=== PATIENT | female | born 1955 | race Caucasian/White ===

== ENCOUNTER 2018-06-03 08:26 | Inpatient (IN) | payer OTHER ==
[2018-06-03 09:40] LABS: Urine Blood 2+ (NEG); Urine Glucose NEGATIVE (NEG); Urine Protein 1+ (NEG); Urine Specific Gravity 1.015 (1.005-1.030); Urine pH 5.5 (5.0-7.0)
[2018-06-03 09:42] LABS: Absolute Lymphocytes (CBC) 0.4 K/uL (0.7-4.9); Absolute Monocytes 1.2 K/uL (0.1-1.3); Absolute Neutrophil 30.3 K/uL (1.8-8.0); Basophils % 0.1 % (0-1.3); Hematocrit 31.1 % (36.0-45.0); Lymphocytes % 1.4 % (15.3-44.8); MCH 33.5 pg (27.0-35.0); MCV 101.3 fL (80-100); MPV 8.4 fL (7.6-11.3); Monocytes % 3.7 % (3.3-12.3); RBC Red Blood Cell Count 3.07 M/uL (3.86-4.86)
[2018-06-03 09:43] LABS: Urine Bacteria <20 /HPF (<20); Urine Culture Reflex Order REFLEXED; Urine RBC <5 /HPF (NONE SEEN); Urine Yeast MANY (NONE SEEN); Urine Yeast with Hyphae PRESENT
[2018-06-03 09:47] LABS: Potassium 4.6 mmol/L (3.5-5.1)
[2018-06-03] MEDS ORDERED: NA CHLORIDE 0.9% 1,000 ML ONE ×2 (10:11→12:08)
[2018-06-03] MEDS ORDERED: FLUCONAZOLE 100 MG TAB ONE (10:11)
[2018-06-03 10:21] LABS: Blood Morphology Comment NOT SEEN (NOT SEEN); Platelet Estimate ADEQ
[2018-06-03 10:22] LABS: Toxic Granulation 1+
--- NOTE | 2018-06-03 10:28 | EKG ---
Test Date: 2018-06-03 Test Time: 09:15:21 Shop Manager: SHANTA MEASUREMENT RESULTS: Intervals: Rate: 96 TX: 148 QRSD: 94 QT: 350 QTc: 442 [place]: P: 45 TX: 148 QRS: 49 T: 50 INTERPRETIVE STATEMENTS: Normal sinus rhythm with sinus arrhythmia Normal ECG Compared to ECG 12/02/2016 20:20:02 Atrial premature complex(es) no longer present Electronically Signed On 06-03-18 10:27:44 CDT by Edwar Fulton
[2018-06-03] MEDS ORDERED: VANCOMYCIN 1 GM/250 ML BAG ONE (11:36)
[2018-06-03] MEDS ORDERED: CEFEPIME 1 GM/100 ML BAG IV ONE ×2 (11:36→20:31)
--- NOTE | 2018-06-03 11:48 | RAD REPORT ---
EXAM DESCRIPTION: RAD - Chest Single View - 06/03/2018 10:23 am CLINICAL HISTORY: Fall, chest pain, smoking history COMPARISON: November 2016 TECHNIQUE: AP portable chest image was obtained 1004 hours . FINDINGS: Lungs are clear. Heart and vasculature are normal. No measurable pleural effusion and no p neumothorax. No gross bony abnormality seen. No acute aortic findings suspected. IMPRESSION: No acute cardiopulmonary process. No significant interval change.
[2018-06-03] MEDS ORDERED: FENTANYL CITR 100 MCG/2 ML ONE (12:07)
--- NOTE | 2018-06-03 12:14 | RAD REPORT ---
EXAM DESCRIPTION: CT - Abdomen Pelvis Wo Contrast - 06/03/2018 11:54 am CLINICAL HISTORY: Abdominal pain. TRAUMA COMPARISON: No comparisons TECHNIQUE: CT imaging of the abdomen and pelvis was performed without contrast. Solid organ, bowel a nd vascular assessment is limited due to lack of IV and oral contrast. All CT scans are performed using dose optimization technique as appropriate and may include automated exposure control or mA/KV adjustment according to patient size. FINDINGS: The lower lung roper are clear. The liver, spleen, pancreas, right adrenal gland and kidneys are within normal limits for a limited n on-contrast examination.19 mm left adrenal mass is present, probably an adenoma. Several gallstones a re seen within the gallbladder. No bowel obstruction, free air, free fluid or abscess. The appendix is normal. Mildly prominent lymp h nodes are seen in both inguinal regions, nonspecific. Lumbar degenerative changes.Advanced degenerative changes in both hips are also present. IMPRESSION: No acute intra-abdominal or pelvic findings. Gallstones. A limited non-contrast examination was performed as detailed.
--- NOTE | 2018-06-03 12:30 | EDPHYS ---
Physician Documentation [facility] Name: Carrie Webb Age: 62 yrs Sex: Female : 1955 Arrival Date: 06/03/2018 Time: 08:29 Bed 5 Private MD: ED Physician Berto Spencer HPI: 06/03 10:40 This 62 yrs old Female presents to ER via EMS with complaints of Fall Injury. jr8 10:40 Onset: The symptoms/episode began/occurred acutely, today. Severity of symptoms: At jr8 their worst the symptoms were mild, in the emergency department the symptoms are unchanged. The patient has not experienced similar symptoms in the past. The patient has not recently seen a physician. Patient stated that she was trying to get up from her chair and slid down landing on lower legs. Came to ED for evaluation from fall. Currently denies pain. Stated that she has felt weak over the past week or so. Historical: - Allergies: 08:30 PENICILLINS; sg - PMHx: 08:30 Cellulitis; Diabetes - NIDDM; Hypertension; sg - PSHx: 08:30 Joint replacement; Knee surgery; Hysterectomy; cervical fusion; ; sg - Immunization history:: Adult Immunizations unknown. - Social history:: Smoking status: Patient uses tobacco products, smokes one-half pack cigarettes per day. - Ebola Screening: : Patient negative for fever greater than or equal to 101.5 degrees Fahrenheit, and additional compatible Ebola Virus Disease symptoms Patient denies exposure to infectious person Patient denies travel to an Ebola-affected area in the 21 days before illness onset No symptoms or risks identified at this time. ROS: 11:18 Eyes: Negative for injury, pain, redness, and discharge, ENT: Negative for injury, jr8 pain, and discharge, Neck: Negative for injury, pain, and swelling, Respiratory: Negative for shortness of breath, cough, wheezing, and pleuritic chest pain, Abdomen/GI: Negative for abdominal pain, nausea, vomiting, diarrhea, and constipation, Back: Negative for injury and pain, Skin: Negative for injury, rash, and discoloration, Neuro: Negative for headache, weakness, numbness, tingling, and seizure. 11:18 Constitutional: Positive for fever. 11:18 Cardiovascular: Positive for edema, Negative for chest pain, orthopnea, palpitations, paroxysmal nocturnal dyspnea. Exam: 11:18 Eyes: Pupils equal round and reactive to light, extra-ocular motions intact. Lids and jr8 lashes normal. Conjunctiva and sclera are non-icteric and not injected. Cornea within normal limits. Periorbital areas with no swelling, redness, or edema. ENT: Nares patent. No nasal discharge, no septal abnormalities noted. Tympanic membranes are normal and external auditory canals are clear. Oropharynx with no redness, swelling, or masses, exudates, or evidence of obstruction, uvula midline. Mucous membranes moist. Neck: Trachea midline, no thyromegaly or masses palpated, and no cervical lymphadenopathy. Supple, full range of motion without nuchal rigidity, or vertebral point tenderness. No Meningismus. Cardiovascular: Regular rate and rhythm with a normal S1 and S2. No gallops, murmurs, or rubs. Normal PMI, no JVD. No pulse deficits. 2+ edema bilateral lower extremities present Respiratory: Lungs have equal breath sounds bilaterally, clear to auscultation and percussion. No rales, rhonchi or wheezes noted. No increased work of breathing, no retractions or nasal flaring. Abdomen/GI: Soft, non-tender, with normal bowel sounds. No distension or tympany. No guarding or rebound. No evidence of tenderness throughout. Back: No spinal tenderness. No costovertebral tenderness. Full range of motion. MS/ Extremity: Pulses equal, no cyanosis. Neurovascular intact. Full, normal range of motion. Neuro: Awake and alert, GCS 15, oriented to person, place, time, and situation. Cranial nerves II-XII grossly intact. Motor strength 5/5 in all extremities. Sensory grossly intact. Cerebellar exam normal. Normal gait. 11:18 Skin: pressure wounds noted to buttocks. Significant bruising noted to buttocks as well . Vital Signs: 08:36 BP 129 / 109; Pulse 102; Resp 20; Temp 98.; Pulse Ox 100% on R/A; Weight 136.08 kg (R); ae1 09:56 Pulse 99; Resp 19; Pulse Ox 98% on R/A; ae1 10:17 BP 120 / 60; Pulse 98; Resp 20; Pulse Ox 98% on R/A; ae1 11:47 BP 126 / 72; Pulse 101; Resp 21; Pulse Ox 99% on R/A; ae1 13:28 BP 108 / 52; Pulse 120; Resp 19; Pulse Ox 98% on R/A; ae1 MDM: 08:34 Patient medically screened. [facility] 12:28 Data reviewed: vital signs, nurses notes, lab test result(s), EKG, radiologic studies, [facility] CT scan, plain films, and as a result, I will admit patient. Data interpreted: Pulse oximetry: on room air is 99 %. Interpretation: normal. Counseling: I had a detailed discussion with the patient and/or guardian regarding: the historical points, exam findings, and any diagnostic results supporting the discharge/admit diagnosis, lab results, radiology results, the need for further work-up and treatment in the hospital. 06/03 08:38 Order name: CBC with Diff [facility] 06/03 08:38 Order name: Basic Metabolic Panel [facility] 06/03 08:38 Order name: Urine Microscopic Only [facility] 06/03 08:38 Order name: CBC with Automated Diff; Complete Time: 10:30 [facility] 06/03 08:38 Order name: Basic Metabolic Panel; Complete Time: 09:54 [facility] 06/03 08:38 Order name: Urine Microscopic Only; Complete Time: 09:46 [facility] 06/03 09:19 Order name: Urine Dipstick--Ancillary (enter results); Complete Time: 09:46 bd 06/03 09:44 Order name: Urine Culture [facility] 06/03 09:51 Order name: Manual Differential; Complete Time: 10:30 [facility] 06/03 09:55 Order name: Blood Culture Adult (2) [facility] 06/03 09:55 Order name: Procalcitonin; Complete Time: 11:59 [facility] 06/03 09:56 Order name: Lactate [facility] 06/03 09:57 Order name: Lactate; Complete Time: 11:34 [facility] 06/03 09:57 Order name: BNP [facility] 06/03 08:38 Order name: IV; Complete Time: 09:29 [facility] 06/03 08:38 Order name: Urine Dipstick-Ancillary (obtain specimen); Complete Time: 09:24 [facility] 06/03 08:38 Order name: Straight Cath; Complete Time: 09:24 [facility] 06/03 08:38 Order name: EKG - Nurse/Tech; Complete Time: 09:24 06/03 08:38 Order name: EKG; Complete Time: 08:39 06/03 09:55 Order name: XRAY Chest (1 view); Complete Time: 11:59 06/03 11:35 Order name: CT Abd/Pelvis - Without Cont; Complete Time: 12:26 06/03 13:55 Order name: Sifuentes; Complete Time: 14:10 ae1 Administered Medications: 09:56 CANCELLED (Physician Discretion): NS 0.9% 1000 ml IV at 1000 ml once jr 10:17 Drug: DiFLUcan 150 mg Route: PO; ae1 15:22 Follow up: Response: No adverse reaction ae1 10:17 Drug: NS 0.9% 1000 ml Route: IV; Rate: 1000 ml; Site: left antecubital; ae1 13:13 Follow up: IV Status: Completed infusion ae1 11:30 Drug: Cefepime 1 grams Route: IVPB; Rate: 200 ml/hr; Infused Over: 30 mins; Site: left ae1 jugular; 13:13 Follow up: IV Status: Completed infusion ae1 12:10 Drug: fentaNYL (PF) 50 mcg Route: IVP; Site: left jugular; ae1 13:55 Follow up: Response: Pain is unchanged, physician notified ae1 12:15 Drug: vancoMYCIN 1 grams Route: IVPB; Infused Over: 2 hrs; Site: left jugular; ae1 15:21 Follow up: IV Status: Infusion continued upon admission ae1 12:15 Drug: NS 0.9% 1000 ml Route: IV; Rate: 1000 ml; Site: left jugular; ae1 15:21 Follow up: IV Status: Infusion continued upon admission ae1 Disposition: 16:49 Co-signature as Attending Physician, Berto Spencer MD. rn Disposition: 06/03/18 12:29 Hospitalization ordered by Lester Frost for Inpatient Admission. Preliminary diagnosis are Bacteremia, Bacterial infection, unspecified, Sepsis. - Bed requested for Telemetry/MedSurg (Inpatient). - Status is Inpatient Admission. ae1 - Condition is Fair. - Problem is new. - Symptoms have improved. UTI on Admission? No Critical care time excluding procedures: 13:01 Critical care time: Bedside Care: 20 minutes, Consultation: 10 minutes, Family jr8 Intervention: 10 minutes. Total time: 40 minutes Signatures: Dispatcher [facility], Dulce Maria, RN RN dw Luis M Santos RN RN Berto Spencer MD MD rn Roszak, Josh, PA PA jr8 Jeferson Coleman, BERNADETTE RN ae1 Corrections: (The following items were deleted from the chart) 09:56 09:56 NS 0.9% 1000 ml IV at 1000 ml once ordered. jr8 jr8 11:36 11:18 Skin: pressure wounds noted to buttocks. jr8 jr8 12:49 12:29 Hospitalization Ordered by Yao Castellon DO for Inpatient Admission. Preliminary jr8 diagnosis is Bacteremia; Bacterial infection, unspecified; Sepsis. Bed requested for Telemetry/MedSurg (Inpatient). Status is Inpatient Admission. Condition is Fair. Problem is new. Symptoms have improved. UTI on Admission? No. jr8 13:20 12:49 06/03/2018 12:29 Hospitalization Ordered by Lester Frost MD for Inpatient dw Admission. Preliminary diagnosis is Bacteremia; Bacterial infection, unspecified; Sepsis. Bed requested for Telemetry/MedSurg (Inpatient). Status is Inpatient Admission. Condition is Fair. Problem is new. Symptoms have improved. UTI on Admission? No. jr8 14:56 13:20 06/03/2018 12:29 Hospitalization Ordered by Lester Frost MD for Inpatient ae1 Admission. Preliminary diagnosis is Bacteremia; Bacterial infection, unspecified; Sepsis. Bed requested for Telemetry/MedSurg (Inpatient). Status is Inpatient Admission. Condition is Fair. Problem is new. Symptoms have improved. UTI on Admission? No. dw
--- NOTE | 2018-06-03 12:30 | ER ---
Nurse's Notes [facility] Name: Carrie Webb Age: 62 yrs Sex: Female : 1955 Arrival Date: 06/03/2018 Time: 08:29 Bed 5 Private MD: Diagnosis: Bacteremia;Bacterial infection, unspecified;Sepsis Presentation: 06/03 08:37 Presenting complaint: EMS states: EMS states patient had a fall from her chair earlier ae1 this morning. 08:37 Acuity: YOSSI 3 ae1 09:31 Transition of care: patient was not received from another setting of care. Onset of ae1 symptoms was June 03, 2018 at 08:00. Risk Assessment: Do you want to hurt yourself or someone else? Patient reports no desire to harm self or others. Initial Sepsis Screen: Does the patient meet any 2 criteria? HR > 90 bpm. Does the patient have a suspected source of infection? No. Patient's initial sepsis screen is negative. Care prior to arrival: V/S "hypertensive.". 09:31 Method Of Arrival: EMS: [facility] ae1 Historical: - Allergies: 08:30 PENICILLINS; sg - PMHx: 08:30 Cellulitis; Diabetes - NIDDM; Hypertension; sg - PSHx: 08:30 Joint replacement; Knee surgery; Hysterectomy; cervical fusion; ; sg - Immunization history:: Adult Immunizations unknown. - Social history:: Smoking status: Patient uses tobacco products, smokes one-half pack cigarettes per day. - Ebola Screening: : Patient negative for fever greater than or equal to 101.5 degrees Fahrenheit, and additional compatible Ebola Virus Disease symptoms Patient denies exposure to infectious person Patient denies travel to an Ebola-affected area in the 21 days before illness onset No symptoms or risks identified at this time. Screenin:30 Abuse screen: Denies threats or abuse. Nutritional screening: No deficits noted. ae1 Tuberculosis screening: No symptoms or risk factors identified. Fall Risk Fall in past 12 months (25 points). Secondary diagnosis (15 points) impaired mobility, IV access (20 points). Ambulatory Aid- Crutches/Cane/Walker (15 pts). Gait- Impaired (20 pts.). Mental Status- Oriented to own ability (0 pts). Assessment: 09:37 General: Appears uncomfortable, obese, unkempt, Behavior is calm, cooperative. Pain: ae1 Complains of pain in right leg, lateral aspect of left calf, left lateral ankle, lateral aspect of left foot, left calf, left Achilles, left heel, medial aspect of left calf, left medial ankle, medial aspect of left foot, left gutiérrez, anterior aspect of left ankle and dorsum of left foot. Neuro: Level of Consciousness is awake, alert, obeys commands, Oriented to person, place, time, situation. Cardiovascular: Heart tones S1 S2 present ISABEL lower extremities are reddened, swollen and weeping clear yellowish fluid. ISABEL Feet are wrapped in bandages and ANA wrapp . Respiratory: Airway is patent Respiratory effort is even, unlabored, shallow, Respiratory pattern is regular, symmetrical. GI: Abdomen is round obese. : Urine is Lu urine. Lesions noted. EENT: No signs and/or symptoms were reported regarding the EENT system. Derm: Wound noted buttocks ISABEL lower extremities are significantly swollen, reddened and weeping clear yellow fluid. 10:00 Reassessment: No changes from previously documented assessment. Pain: Complains of pain ae1 in buttocks. Derm: Bruising that is dark purple, on buttocks. 13:27 Reassessment: Called 2nd floor to give report to receiving nurse, bakery helper states she ae1 will have Vira return call. 13:49 Reassessment:. ae1 Vital Signs: 08:36 BP 129 / 109; Pulse 102; Resp 20; Temp 98.; Pulse Ox 100% on R/A; Weight 136.08 kg (R); ae1 09:56 Pulse 99; Resp 19; Pulse Ox 98% on R/A; ae1 10:17 BP 120 / 60; Pulse 98; Resp 20; Pulse Ox 98% on R/A; ae1 11:47 BP 126 / 72; Pulse 101; Resp 21; Pulse Ox 99% on R/A; ae1 13:28 BP 108 / 52; Pulse 120; Resp 19; Pulse Ox 98% on R/A; ae1 ED Course: 08:29 Patient arrived in ED. sg 08:31 Arm band placed on. sg 08:34 Edin Viramontes PA is PHCP. jr8 08:34 Berto Spencer MD is Attending Physician. jr8 08:35 Jared, Jeferson, RN is Primary Nurse. ae1 08:38 Triage completed. ae1 09:23 Urine collected: straight cath specimen, cloudy, tea colored. jb1 09:30 Inserted saline lock: 22 gauge in left antecubital area, using aseptic technique. Blood ae1 collected. 09:30 Straight cath inserted, using sterile technique, 16 Fr. Specimen obtained. Returned ae1 lu urine. Patient tolerated well. 09:31 Bed in low position. Call light in reach. Side rails up X2. Adult w/ patient. Pulse ox ae1 on. NIBP on. Warm blanket given. 10:16 X-ray completed. Portable x-ray completed in exam room. Patient tolerated procedure jb2 well. 10:18 XRAY Chest (1 view) In Process Unspecified. EDMS 11:30 Exam of buttocks. ae1 11:34 Notified Nurse Practitioner and/or Physician Grocery Clerk of a critical lab result(s), aa5 Lactate 2.1. 11:53 CT Abd/Pelvis - Without Cont In Process Unspecified. EDMS 11:53 CT completed. Patient tolerated procedure well. Patient moved to CT via stretcher. sj Patient moved back from CT. 12:28 Yao Castellon DO is Hospitalizing Provider. jr8 12:49 Lester Frost MD is Hospitalizing Provider. jr8 14:11 Sifuentes cath inserted, using sterile technique, 16 Fr., by mt, balloon inflated, to ae1 gravity drainage. 14:56 Patient admitted, IV remains in place. ae1 Administered Medications: 09:56 CANCELLED (Physician Discretion): NS 0.9% 1000 ml IV at 1000 ml once jr8 10:17 Drug: DiFLUcan 150 mg Route: PO; ae1 15:22 Follow up: Response: No adverse reaction ae1 10:17 Drug: NS 0.9% 1000 ml Route: IV; Rate: 1000 ml; Site: left antecubital; ae1 13:13 Follow up: IV Status: Completed infusion ae1 11:30 Drug: Cefepime 1 grams Route: IVPB; Rate: 200 ml/hr; Infused Over: 30 mins; Site: left ae1 jugular; 13:13 Follow up: IV Status: Completed infusion ae1 12:10 Drug: fentaNYL (PF) 50 mcg Route: IVP; Site: left jugular; ae1 13:55 Follow up: Response: Pain is unchanged, physician notified ae1 12:15 Drug: vancoMYCIN 1 grams Route: IVPB; Infused Over: 2 hrs; Site: left jugular; ae1 15:21 Follow up: IV Status: Infusion continued upon admission ae1 12:15 Drug: NS 0.9% 1000 ml Route: IV; Rate: 1000 ml; Site: left jugular; ae1 15:21 Follow up: IV Status: Infusion continued upon admission ae1 Outcome: 12:29 Decision to Hospitalize by Provider. corona 14:55 Admitted to Med/surg accompanied by nurse, via stretcher, room 230, with chart, Report ae1 called to nurse Vira. 14:55 Condition: stable 14:55 Instructed on the need for admit, Demonstrated understanding of instructions. 14:56 Patient left the ED. ae1 Signatures: Dispatcher [employer] EDMS Kevin Meyer jb1 Luis M Santos, BERNADETTE RN [place]2 Erica Elizabeth Audri, RN RN aa5 Edin Viramontes PA PA jr8 Jeferson Coleman RN RN ae1 Corrections: (The following items were deleted from the chart) 08:36 08:36 BP 129 / 10; Pulse 102bpm; Resp 20bpm; Pulse Ox 100% RA; Temp 98.F; 136.08 kg ae1 Reported; ae1
[2018-06-03] MEDS ORDERED: ONDANSETRON 4 MG/2 ML VIAL IV PRN (15:14)
[2018-06-03] MEDS ORDERED: D50W 25 GM/50 ML SYRINGE IV PRN (15:14)
[2018-06-03] MEDS ORDERED: ACETAMINOPHEN 500 MG TAB PO PRN (15:14)
[2018-06-03] MEDS ORDERED: GLUCAGON 1 MG/VIAL IM PRN (15:14)
[2018-06-03 15:49] VITALS: BMI 48.5
[2018-06-03] MEDS: INSULIN -REGULAR HUMAN 50 UNIT/0.5 ML ML SQ SCH ×2 (16:26→21:00)
[2018-06-03] MEDS: NA CHLORIDE 0.9% 1,000 ML IV SCH ×2 (17:32→23:20)
[2018-06-03] MEDS: VANCOMYCIN 2 GM in NA CHLORIDE 0.9% 500 ML IVPB SCH (17:32)
[2018-06-03] MEDS: ENOXAPARIN 40 MG/0.4 ML SQ SCH (17:34)
--- NOTE | 2018-06-03 20:17 | RAD REPORT ---
EXAM DESCRIPTION: US - Renal Ultrasound-Complete - 06/03/2018 7:36 pm CLINICAL HISTORY: Renal failure COMPARISON: None. FINDINGS: The right kidney measures 11.7 x 5.0 x 5.0 cm. The left kidney measures 11.7 x 5.7 x 5.4 cm. Cortical thickness is normal. Cortical echogenicity is difficult to accurately assess as body hab itus can cause significant increase in cortical echogenicity. It is difficult to accurately distingui sh body habitus artifact from medical renal disease. No hydronephrosis or suspicious renal mass. Bladder was very limited. IMPRESSION: No hydronephrosis or suspicious renal mass. Medical renal disease cannot be accurately assessed. Artifact due to body habitus can mimic medical r enal disease.
[2018-06-03 20:39] LABS: Uric Acid 11.6 mg/dL (2.6-6.0)
[2018-06-03 20:41] LABS: CKMB Creatine Kinase MB 17.9 ng/mL (0.3-3.6)
[2018-06-03] MEDS: CEFEPIME/SWI 1gm 1 GM/10 ML SYR IVP SCH (20:59)
[2018-06-03] MEDS ORDERED: CEFEPIME 1 GM/VIAL IV SCH (21:00)
[2018-06-03] MEDS ORDERED: VANCOMYCIN 1GM/D5W 200 ML IV SCH (21:00)
[2018-06-03 22:40] LABS: Urine Appearance CLEAR; Urine Bilirubin NEGATIVE (NEG); Urine Blood 2+ (NEG); Urine Color YELLOW; Urine Glucose NEGATIVE (NEG); Urine Protein NEGATIVE (NEG); Urine Specific Gravity 1.015 (1.005-1.030); Urine pH 5.5 (5.0-7.0)
[2018-06-03 22:47] LABS: Urine Microscopic Reflex ORDER UMIC
[2018-06-04 00:12] LABS: Urine Bacteria <20 /HPF (<20); Urine Culture Reflex Order REFLEXED; Urine RBC NONE SEEN /HPF (NONE SEEN); Urine Yeast PRESENT (NONE SEEN)
[2018-06-04 05:15] LABS: Absolute Lymphocytes (CBC) 0.6 K/uL (0.7-4.9); Absolute Neutrophil 11.7 K/uL (1.8-8.0); Basophils % 0.5 % (0-1.3); Eosinophils % 0.3 % (0-4.4); Lymphocytes % 4.7 % (15.3-44.8); MCH 34.2 pg (27.0-35.0); MCV 100.5 fL (80-100); MPV 8.5 fL (7.6-11.3); Monocytes % 7.6 % (3.3-12.3); RBC Red Blood Cell Count 2.49 M/uL (3.86-4.86)
[2018-06-04 05:34] LABS: Potassium 4.1 mmol/L (3.5-5.1)
[2018-06-04] MEDS: NA CHLORIDE 0.9% 1,000 ML IV SCH ×2 (06:13→12:01)
[2018-06-04] MEDS: INSULIN -REGULAR HUMAN 50 UNIT/0.5 ML ML SQ SCH ×4 (07:30→21:00)
[2018-06-04] MEDS: CEFEPIME/SWI 1gm 1 GM/10 ML SYR IVP SCH ×2 (09:06→20:27)
[2018-06-04] MEDS: ENOXAPARIN 40 MG/0.4 ML SQ SCH (09:07)
[2018-06-04] MEDS: MEDIHONEY 44 ML TOPICAL TUBE TOP SCH (09:46)
[2018-06-04] MEDS: MORPHINE 2 MG/ML SYR IV PRN ×2 (11:57→20:27)
--- NOTE | 2018-06-04 12:35 | ECHO ---
HEIGHT: 5 ft 6 in WEIGHT: 300 lb 12.8 oz DATE OF STUDY: 06/04/[address]: Lester Frost MD 2-DIMENSIONAL: YES M.MODE: YES DOPPLER: YES COLOR FLOW: YES TDS: YES PORTABLE: NO DEFINITY: NO BUBBLE STUDY: NO DIAGNOSIS: CONGESTIVE HEART FAILURE CARDIAC HISTORY: CATHERIZATION: NO SURGERY: NO PROSTHETIC VALVE: NO PACEMAKER: NO MEASUREMENTS (cm) DIASTOLIC (NORMALS) SYSTOLIC (NORMALS) IVSd 0.9 (0.6-1.2) LA Diam 4.5 (1.9-4.0) LVEF 80% LVIDd 4.8 (3.5-5.7) LVIDs 2.4 (2.0-3.5) %FS 49% LVPWd 1.1 (0.6-1.2) Ao Diam 2.7 (2.0-3.7) 2 DIMENSIONAL ASSESSMENT: RIGHT ATRIUM: NORMAL LEFT ATRIUM: DILATED RIGHT VENTRICLE: NORMAL LEFT VENTRICLE: NORMAL TRICUSPID VALVE: NORMAL MITRAL VALVE: MITRAL ANNULAR CALCIFICATION PULMONIC VALVE: NORMAL AORTIC VALVE: NORMAL PERICARDIAL EFFUSION: NONE AORTIC ROOT: NORMAL LEFT VENTRICULAR WALL MOTION: NORMAL DOPPLER/COLOR FLOW: NORMAL COMMENTS: LEFT ATRIAL ENLARGEMENT. MITRAL ANNULAR CALCIFICATION. NORMAL LEFT VENTRICULAR SIZE AND FUNCTION. NO WALL MOTION ABNORMALITY. TECHNOLOGIST: Luis A CABEZAS
--- NOTE | 2018-06-04 14:33 | RAD REPORT ---
EXAM DESCRIPTION: RAD - Chest Single View - 06/04/2018 2:23 pm CLINICAL HISTORY: PICC line placement COMPARISON: June 03 FINDINGS: Portable chest was obtained following placement of a right upper extremity PICC line. The catheter tip is in the distal SVC.
--- NOTE | 2018-06-04 21:49 | CON ---
Date of Consultation: 06/04/2018 Additional Consulting Physician: Peterson Plummer MD. Reason For Consultation: Elevated BUN and creatinine, fluid management. History Of Present Illness: This is a pleasant, unfortunate, 62-year-old female with significant past medical history of diabetes complicated with neuropathy, hypertension, hyperlipidemia, COPD, the patient was in her regular state of health. Apparently, she has fall at home. Since then, she feeling weak, brought to the emergency room and found to have elevated BUN and creatinine. For that reason, we have been consulted. The patient was admitted. Over the night, we start the patient on IV fluid. The patient feeling better. Kidney function improved, creatinine from 1.6 to 1.2. The patient denied taking any IV contrast. No recent change in her medication. Apparently, patient at home being on diuresis and being taking metformin. Past Medical History: Include: 1. Hypertension. 2. Hyperlipidemia. 3. Diabetes complicated with neuropathy. 4. Lymphedema. 5. COPD bronchitis. Social History: Denies smoking. Denies drinking. Denies drug abuse. Allergies: TO PENICILLIN. Past Surgical History: Non-contribute. Family History: Positive for hypertension. Medications: Home medications include tramadol, metformin, gabapentin. Current medication in the hospital includes cefepime, IV fluid, morphine, Zofran , and vancomycin. Review of Systems: Head and Neck: No red eye. No ear pain. GI: Decreased intake. : No polyuria. No dysuria. No hematuria. LIFE COACH: No vaginal discharge. Respiratory: Some shortness of breath before. Cardiovascular: Has lymphedema. Endocrine: No polydipsia. Skin: No rash. Physical Examination: Vital Signs: Blood pressure 110/53, on presentation systolic was around 90; pulse of 77; afebrile. Chest: Faint crackles bilateral. Heart: S1, S2. Regular. Abdomen: Soft, nontender. Extremity: Lymphedema. Bilateral dressing both legs. Laboratory Data: WBC 13.5, H and H 8.5/25, on admission WBC was 31.5. Sodium 143, potassium 4.1, bicarb 18, creatinine 1.2, calcium 7.5, procalcitonin 17.9. On admission creatinine 1.6. Urinalysis, WBC of 20, bacteria present. Assessment And Plan: 1. Acute kidney injury secondary to prerenal, secondary to poor intake. Normal sized kidney, proteinuric, nonnephrotic. look to be normal volume giving the history of lymphedema. I going to go ahead and discontinue IV fluid. We will monitor. 2. Hypertension controlled. Currently blood pressure on the lower side. Hold all blood pressure medication. 3. DM. We will keep holding metformin given the acute kidney injury. 4. Cellulitis lower extremity, sepsis. Discontinue IV fluid. Continue current antibiotic. We will follow up with the primary. 5. Diabetes. Hold metformin as above. Continue sliding scale. Thank you, Dr. Plummer for allowing us to participate in the care of your patient. ELAINA/DEE Voice ID: [id number] Report ID: [id number] MAYRA
--- NOTE | 2018-06-04 22:09 | HP ---
Date of Admission: 06/03/2018 Chief Complaint: Feeling weak. History Of Present Illness: A 62-year-old female who was brought to the emergency room because of fe eling weak and other related symptoms. The patient had a workup done. She was found to have white c ount of 31,000. She had chronic infections of both legs secondary to venous insufficiency related sw elling. The patient had multiple admissions and wound care visits. There is no history of recent tr auma. The patient denied any other history of systemic symptoms such as nausea, vomiting, or abdomin al pain. Past Medical History: 1.Recurrent cellulitis of both legs. 2.Chronic venous insufficiency. 3.Hypertension. 4.Type 2 diabetes, mild. Past Surgical History: Positive for hysterectomy, knee surgery, neck surgery. Review of Systems: The patient denied any abdominal pain, nausea, or vomiting. Family History: Noncontributory. Personal History: Nonsmoker. Allergies: PENICILLIN. Physical Examination: General: Revealed a 62-year-old female, morbidly obese. HEENT: Negative. Neck: Supple. JVD negative. Chest: Clear. Heart: Regular. Abdomen: Pendulous, nontender. Extremities: She has bilateral swelling of legs with increased temperature locally on palpation. Nicole conde also has what looks like recent bedsore on the buttock area. Laboratory Data: White count 51531, BUN 58, creatinine 1.9. Lactic acid 2.1. Procalcitonin 0.7. BNP 1241. Assessment: 1.Septicemia. 2.Probable skin infection causing septicemia. 3.Chronic venous insufficiency. 4.Type 2 diabetes. 5.Hypertension. Plan: The patient has been started on vancomycin and cefepime, which will be continued pending the vijay kovacs reports. The patient also is going to have evaluation by a Nephrology Service to see if any a dditional steps are necessary to improve her kidney function. The patient is due to have echocardiog rick because of elevated BNP to see how her LV function is. RRK/MODL Voice ID: [id number]
[2018-06-05] MEDS: MORPHINE 2 MG/ML SYR IV PRN (01:07)
[2018-06-05] MEDS: INSULIN -REGULAR HUMAN 50 UNIT/0.5 ML ML SQ SCH ×4 (07:30→21:00)
[2018-06-05] MEDS: ENOXAPARIN 40 MG/0.4 ML SQ SCH (09:30)
[2018-06-05] MEDS: CEFEPIME/SWI 1gm 1 GM/10 ML SYR IVP SCH ×2 (09:30→21:25)
[2018-06-05] MEDS: MEDIHONEY 44 ML TOPICAL TUBE TOP SCH (09:32)
[2018-06-05] MEDS: VANCOMYCIN 2 GM in NA CHLORIDE 0.9% 500 ML IVPB SCH (12:12)
[2018-06-05] MEDS: TRAMADOL HCL 50 MG TAB PO PRN ×2 (13:10→21:25)
--- NOTE | 2018-06-05 15:15 | RAD REPORT ---
EXAM DESCRIPTION: RAD - Tib Fib Right - 06/05/2018 3:08 pm CLINICAL HISTORY: Recent fall, pain COMPARISON: No comparisons FINDINGS: Diffuse osteopenia is seen. No acute fracture is identified. Moderate subcutaneous edema o f the lower leg seen.
--- NOTE | 2018-06-05 15:16 | RAD REPORT ---
EXAM DESCRIPTION: RAD - Knee Right 2 View - 06/05/2018 3:09 pm CLINICAL HISTORY: Fall, pain COMPARISON: No comparisons FINDINGS: Advanced osteoarthritis of the knee joint is seen with [id number] in the lateral joint c ompartment. An acute fracture is not seen. Prominent bony spurring off of the superior pole of the pa tella is present. A small suprapatellar joint effusion is likely present.
[2018-06-05] MEDS: JUVEN PACKET PO SCH (21:24)
--- NOTE | 2018-06-06 00:13 | PN ---
Date of Progress Note: 06/05/2018 Chief Complaint: Elevated BUN and creatinine. History Of Present Illness: The patient is a 62-year-old woman. She came to the hospital because of generalized weakness. She was found to have elevated BUN and creatinine. The patient's kidney func tion has improved. Creatinine improved from 1.6 to 1.2 in response to IV fluids. The patient was fo und to have acute kidney injury secondary to prerenal azotemia and poor p.o. intake. Nephrology work up was initiated in the hospital. The patient was found to have normal kidney size on ultrasound. T here is proteinuria present with nonnephrotic range. Due to development of lymphedema, IV fluids wer e discontinued, although renal function remains stable. The patient is treated with antibiotics for cellulitis and sepsis. Review of Systems: Denies fever or chills. Physical Examination: Lungs: Clear to auscultation bilaterally. Heart: S1, S2. Abdomen: Soft, benign. Extremities: Some edema present. Laboratory Work: Sodium 143, potassium 4.1, chloride 116, carbon dioxide 18, BUN 36, creatinine 1.2, glucose 95. Impression And Plan: 1.Acute kidney injury with prerenal azotemia. IV fluids currently on hold. Renal function responde d to IV hydration. Monitor electrolytes and renal function. 2.Cellulitis. Continue antibiotics. 3.Hypertension. Hold ANA inhibitor. Monitor blood pressure. Adjust blood pressure medication as needed. 4.Diabetes mellitus. Metformin on hold due to acute kidney injury. ANDRZEJ/DEE Voice ID: [id number] Report ID: [id number]
[2018-06-06 06:18] LABS: Potassium 4.1 mmol/L (3.5-5.1)
[2018-06-06] MEDS: TRAMADOL HCL 50 MG TAB PO PRN ×3 (06:43→21:28)
[2018-06-06] MEDS: INSULIN -REGULAR HUMAN 50 UNIT/0.5 ML ML SQ SCH ×4 (07:30→21:00)
[2018-06-06] MEDS: JUVEN PACKET PO SCH ×2 (09:00→21:00)
[2018-06-06] MEDS: ENOXAPARIN 40 MG/0.4 ML SQ SCH (09:15)
[2018-06-06] MEDS: CEFEPIME/SWI 1gm 1 GM/10 ML SYR IVP SCH ×2 (09:16→21:19)
[2018-06-06] MEDS: MEDIHONEY 44 ML TOPICAL TUBE TOP SCH (09:17)
[2018-06-06] MEDS: VANCOMYCIN 2 GM in NA CHLORIDE 0.9% 500 ML IVPB SCH (17:09)
[2018-06-06] MEDS ORDERED: MAGNES/ALUMIN/SIMET 30ML UCUP PO PRN (19:14)
--- NOTE | 2018-06-06 23:37 | PN ---
Date of Progress Note: 06/06/2018 Chief Complaint: Acute on chronic kidney injury. History Of Present Illness: Creatinine level has been improving. The patient has nonoliguric urine output. The patient presented to the hospital because of generalized weakness, was found to have cellulitis in the legs and severe edema. Creatinine level was elevated up to 1.6, and improved gradually to 1.2. Review of Systems: Denies fever or chills. Physical Examination: Lungs: Clear to auscultation bilaterally. Heart: S1, S2. Abdomen: Soft, benign. Extremities: Edema in both legs. Impression And Plan: 1. Acute kidney injury with prerenal azotemia. IV fluids on hold. The patient has some edema and fluid overload. Continue diuretic as needed. 2. Cellulitis. Continue antibiotics. 3. Hypertension. Blood pressure control. ANA inhibitor on hold. Monitor blood pressure. Adjust medication. 4. Diabetes mellitus. Metformin on hold. Continue insulin. Metformin was stopped, because of acute kidney injury. ANDRZEJ/DEE Voice ID: [id number] Report ID: [id number] MAYRA
[2018-06-07] MEDS: INSULIN -REGULAR HUMAN 50 UNIT/0.5 ML ML SQ SCH ×2 (07:30→11:30)
[2018-06-07] MEDS ORDERED: FUROSEMIDE 40 MG/4 ML VIAL IV SCH (09:00)
[2018-06-07] MEDS: MEDIHONEY 44 ML TOPICAL TUBE TOP SCH (09:00)
[2018-06-07] MEDS: ENOXAPARIN 40 MG/0.4 ML SQ SCH (09:21)
[2018-06-07] MEDS: TRAMADOL HCL 50 MG TAB PO PRN (09:21)
[2018-06-07] MEDS: CEFEPIME/SWI 1gm 1 GM/10 ML SYR IVP SCH (09:22)
[2018-06-07] MEDS: JUVEN PACKET PO SCH (09:23)
[2018-06-07 10:42] VITALS: O2SAT 98
[2018-06-07] MEDS ORDERED: MUPIROCIN 2% OINT 22GM TUBE TOP SCH (12:00)
[2018-06-07 12:38] VITALS: BP 136/94; TEMP 98.6
--- NOTE | 2018-06-08 03:13 | PN ---
Date of Progress Note: 06/07/2018 Chief Complaint: Onnot-dz-uubeixm kidney injury. Hpi: Creatinine level is improving. On arrival to the hospital, creatinine was 1.6, subsequently it improved to 1.2. Review of Systems: Denies fever, chills. Physical Examination: Lungs: Clear to auscultation bilaterally. Heart: S1, S2. Abdomen: Soft, benign. Extremities: Edema present in both legs. Blood pressure 136/96, heart rate 76, respiratory rate 18, temperature 98.6. Laboratory Data: Hemoglobin 8.5, WBC 13.5, platelet count is 195,000. Sodium 146, potassium 4.1, ch loride 117, CO2 25, BUN 20, creatinine 0.90, calcium 7.7. Impression And Plan: 1.Acute kidney injury in recovery phase. The patient developed severe prerenal azotemia. There is high BUN and creatinine ratio. The patient is taking diuretics for edema and lymphedema control. Th e patient has lower extremity cellulitis. Continue antibiotics. 2.Diabetes mellitus. The patient is not a candidate for metformin due to risk of lactic acidosis in the setting of abnormal renal function. EB/MODL Voice ID: [id number] Report ID: [id number]
--- NOTE | 2018-07-03 15:04 | DS ---
Date of Discharge: 06/07/2018 Final Diagnoses: 1.Cellulitis, both legs. 2.Septicemia, from above. 3.Chronic venous insufficiency, bilateral. 4.Type 2 diabetes. 5.Hypertension. Hospital Course: This patient was brought to the emergency room because of feeling weak. She [place] [address] and evidence of cellulitis of both legs. In addition, the patient also had renal failure with a BUN of 58 and creatinine 1.9. The patient after admission to the hosp ital was started on vancomycin and cefepime. The patient was seen by Nephrology Service and IV fluid challenge was done. The patient showed improvement with this approach. Her white count came down. She was afebrile, and she was discharged home on 06/07/2018 on oral antibiotics to have outpatient sneha avila in the office. Laboratory Data: White count at admission 31,000. BUN 58, creatinine 1.9, lactic acid 2.1. Procalc itonin 0.7. BNP 1241. RRK/MODL Voice ID: [id number] Report ID: [id number]
== END 2018-06-07 15:43 | disposition home or self-care (01) | DRG 871 ==
LOC: ER 08:26 → ERHOLD 12:54 → 2ND 14:11 → 4TH 06-05 14:41
PROVIDERS: ADMIT Internal Medicine; ATTEND Internal Medicine
PROC: 02HV33Z Insertion of Infusion Device into Superior Vena Cava, Percutaneous Approach (ICD-10-PCS; principal; 2018-06-04)
DX: A41.9 Sepsis, unspecified organism (principal); L89.323 Pressure ulcer of left buttock, stage 3; Z68.42 Body mass index [BMI] 45.0-49.9, adult; L03.116 Cellulitis of left lower limb; L03.115 Cellulitis of right lower limb; N17.9 Acute kidney failure, unspecified; E11.9 Type 2 diabetes mellitus without complications; I10 Essential (primary) hypertension; Z98.1 Arthrodesis status; F17.210 Nicotine dependence, cigarettes, uncomplicated; Z88.0 Allergy status to penicillin; E66.01 Morbid (severe) obesity due to excess calories; I87.2 Venous insufficiency (chronic) (peripheral); E11.40 Type 2 diabetes mellitus with diabetic neuropathy, unspecified; J44.9 Chronic obstructive pulmonary disease, unspecified; E78.5 Hyperlipidemia, unspecified; I89.0 Lymphedema, not elsewhere classified; Z79.84 Long term (current) use of oral hypoglycemic drugs; Z91.81 History of falling
CPT/HCPCS: 36415; 51702; 71045; 74176; 76770; 80048; 80202; 81003; 81015; 82553; 82570; 82962; 83605; 83880; 84145; 84156; 84550; 85025; 87040; 87070; 87077; 87086; 87088; 87186; 87205; 93005; 93306; 96361; 96365; 96366; 96375; 99285; J0692; J1650; J2270; J3010; J3370; J7030

== ENCOUNTER 2019-01-15 16:14 | Inpatient (IN) | payer OTHER ==
--- NOTE | 2019-01-15 19:20 | RAD REPORT ---
EXAM DESCRIPTION: RAD - Chest Single View - 01/15/2019 6:45 pm CLINICAL HISTORY: Shortness of breath COMPARISON: June 04, 2018 TECHNIQUE: AP portable chest image was obtained 1818 hours . FINDINGS: No acute lung parenchymal process. Lung markings are similar to comparison. Heart and vasc ulature are normal. No measurable pleural effusion and no pneumothorax. No acute bony abnormality see n. No acute aortic findings suspected. IMPRESSION: No acute cardiopulmonary process. No significant interval change.
[2019-01-15 19:43] LABS: Absolute Lymphocytes (CBC) 0.8 K/uL (0.7-4.9); Absolute Neutrophil 11.8 K/uL (1.8-8.0); Basophils % 0.3 % (0-1.3); Eosinophils % 0.4 % (0-4.4); Hematocrit 31.4 % (36.0-45.0); Lymphocytes % 6.1 % (15.3-44.8); Monocytes % 7.3 % (3.3-12.3); RBC Red Blood Cell Count 3.26 M/uL (3.86-4.86)
[2019-01-15 19:48] LABS: Protime INR 1.14
[2019-01-15 20:03] LABS: Albumin 2.5 g/dL (3.4-5.0); Bilirubin Direct 0.5 mg/dL (0-0.2); Bilirubin Total 0.7 mg/dL (0.2-1.0); CKMB Creatine Kinase MB 1.3 ng/mL (0.3-3.6); Potassium 3.8 mmol/L (3.5-5.1); Protein, Total 7.9 g/dL (6.4-8.2)
[2019-01-15] MEDS ORDERED: VANCOMYCIN 1 GM/VIAL ONE (20:09)
[2019-01-15] MEDS ORDERED: NA CHLORIDE 0.9% 250 ML ONE (20:09)
[2019-01-15 20:54] LABS: Blood Morphology Comment NOT SEEN (NOT SEEN); Platelet Estimate ADEQ
--- NOTE | 2019-01-15 21:07 | RAD REPORT ---
EXAM DESCRIPTION: CT - Knee Left W Con - 01/15/2019 8:51 pm CLINICAL HISTORY: Knee pain, cellulitis, history of left knee replacement COMPARISON: None. TECHNIQUE: Following nonionic IV contrast administration, axial 5 millimeter thick images of the lef t knee were obtained. O-mar reconstruction technique utilized due to knee prosthesis. The CT scan was performed using dose optimization techniques as appropriate to a performed exam incl uding one or more of the following: Automated exposure control, adjustment of the mA and/or kV accord ing to patient size (this includes techniques or standardized protocols for targeted exams where dose is matched to indication/reason for exam) and use of iterative reconstruction technique. FINDINGS: No occult fracture identified. No acute or destructive bone process identifiable. Assessme nt of the bone immediately adjacent to the implant material is limited. Joint effusion is present whi ch can exist chronically in a knee replacement patient. Synovial lining is slightly thickened. No def initive enhancement. While not excluded, infection of the joint space is not suspected. No air in the joint space. Patient has a very pronounced edema pattern in the skin and subcutaneous fatty tissues. The fascia rudolph rrounding the skeletal musculature appears intact. Fatty tissues surrounding the individual muscles s how no significant congestion or edema pattern. Within the subcutaneous fatty tissue no abscess or dr ainable fluid collection identifiable. IMPRESSION: Patient has very pronounced edema in the skin and subcutaneous fatty tissues surrounding the left knee. Within the subcutaneous fatty tissues, no abscess or drainable fluid collection. The outer fascia layer surrounding the flexor and extensor muscle groups appears intact with no conge stion or edema of the deeper fatty tissues. Joint effusion is present and there is slight thickening of the synovial lining lateral aspect of the joint space. Both of these findings can exist chronically in a knee prosthesis patient. No specific finding to elevate probability of an infected joint space. No fracture. No pathologic bone process.
[2019-01-15] MEDS ORDERED: FENTANYL CITR 100 MCG/2 ML ONE (21:36)
[2019-01-15 21:48] LABS: Urine Blood 2+ (NEG); Urine Glucose NEGATIVE (NEG); Urine Protein 2+ (NEG); Urine Specific Gravity 1.015 (1.005-1.030); Urine pH 5.5 (5.0-7.0)
--- NOTE | 2019-01-15 22:59 | ER ---
Nurse's Notes [facility] Name: Carrie Webb Age: 63 yrs Sex: Female : 1955 Arrival Date: 01/15/2019 Time: 16:23 Bed 14 Private MD: Diagnosis: Urinary tract infection, site not specified;Cellulitis of left lower limb;Lymphedema, not elsewhere classified Presentation: 01/15 16:23 Presenting complaint: EMS states: C/O megha knee pain and difficulty walking hx of ph cellulitis and L knee replacement, BP elevated on scene at 160s/120s, HR 115. Transition of care: patient was not received from another setting of care. Onset of symptoms was January 15, 2019. Risk Assessment: Do you want to hurt yourself or someone else? Patient reports no desire to harm self or others. Initial Sepsis Screen: Does the patient meet any 2 criteria? No. Patient's initial sepsis screen is negative. Does the patient have a suspected source of infection? Yes: Bone or joint infection. Care prior to arrival: None. 16:23 Method Of Arrival: EMS: [facility] ph 16:23 Acuity: YOSSI 3 ph Historical: - Allergies: 16:27 PENICILLINS; ph - PMHx: 16:27 Cellulitis; Diabetes - NIDDM; Hypertension; ph - PSHx: 16:27 Joint replacement; Knee surgery; Hysterectomy; cervical fusion; ; ph - Immunization history:: Adult Immunizations unknown. - Social history:: Smoking status: Patient/guardian denies using tobacco. - Ebola Screening: : No symptoms or risks identified at this time. Screenin:28 Abuse screen: Denies threats or abuse. Denies injuries from another. Nutritional ph screening: No deficits noted. Tuberculosis screening: No symptoms or risk factors identified. Fall Risk No fall in past 12 months (0 pts). No secondary diagnosis (0 pts). No IV (0 pts). Ambulatory Aid- None/Bed Rest/Nurse Assist (0 pts). Gait- Impaired (20 pts.). Mental Status- Oriented to own ability (0 pts). Total Milner Fall Scale indicates Low Risk Score (25-44 pts). Fall prevention measures have been instituted. Side Rails Up X 2 Placed close to Nursing Station Family Present and informed to notify staff if they need to leave bedside As available Patient and Family Educated on Fall Prevention Program and strategies. Assessment: 16:30 General: Appears in no apparent distress. uncomfortable, obese, Behavior is calm, ph cooperative, appropriate for age, Reports chills for 1-2 days. Pain: Complains of pain in right leg and left leg. Neuro: Level of Consciousness is awake, alert, obeys commands, Oriented to person, place, time, situation. Cardiovascular: Reports fatigue, shortness of breath, Denies chest pain, lightheadedness, nausea, vomiting, Capillary refill < 3 seconds in bilateral fingers Patient's skin is warm and dry. Edema is 4+ to left knee, left midcalf, left ankle, left foot, right knee, right midcalf, right ankle and right foot. Respiratory: Airway is patent Respiratory effort is even, unlabored, Respiratory pattern is regular, symmetrical. GI: No signs and/or symptoms were reported involving the gastrointestinal system. Patient currently denies diarrhea, nausea, vomiting. Derm: Skin is healthy with good turgor, Skin is pink, warm \\T\\ dry. Musculoskeletal: Circulation, motion, and sensation intact. 18:00 Reassessment: Patient appears in no apparent distress at this time. Patient and/or ph family updated on plan of care and expected duration. Pain level reassessed. Patient is alert, oriented x 3, equal unlabored respirations, skin warm/dry/pink. 19:07 Reassessment: Patient appears in no apparent distress at this time. Patient and/or ph family updated on plan of care and expected duration. Pain level reassessed. Patient is alert, oriented x 3, equal unlabored respirations, skin warm/dry/pink. Pt requesting Sifuentes catheter, states, " I can't get up an walk, they gave me one last time I was here." ERP notified. 19:15 Reassessment: Patient appears in no apparent distress at this time. Patient and/or jb4 family updated on plan of care and expected duration. Pain level reassessed. Patient is alert, oriented x 3, equal unlabored respirations, skin warm/dry/pink. 20:15 Reassessment: Patient appears in no apparent distress at this time. Patient and/or jb4 family updated on plan of care and expected duration. Pain level reassessed. Patient is alert, oriented x 3, equal unlabored respirations, skin warm/dry/pink. 21:15 Reassessment: Patient appears in no apparent distress at this time. Patient and/or jb4 family updated on plan of care and expected duration. Pain level reassessed. Patient is alert, oriented x 3, equal unlabored respirations, skin warm/dry/pink. 22:45 Reassessment: Patient appears in no apparent distress at this time. Patient and/or jb4 family updated on plan of care and expected duration. Pain level reassessed. Patient is alert, oriented x 3, equal unlabored respirations, skin warm/dry/pink. Patient states feeling better. 01/16 00:00 Reassessment: Patient appears in no apparent distress at this time. Patient and/or jb4 family updated on plan of care and expected duration. Pain level reassessed. Patient is alert, oriented x 3, equal unlabored respirations, skin warm/dry/pink. Vital Signs: 01/15 16:26 BP 154 / 73; Pulse 105; Resp 22; Temp 98.3(TE); Pulse Ox 100% on R/A; Weight 145.15 kg; ph Height 5 ft. 6 in. (167.64 cm); Pain 8/10; 17:30 BP 148 / 73; Pulse 97; Resp 20; Pulse Ox 99% on R/A; ph 18:30 BP 126 / 71; Pulse 94; Resp 18; Pulse Ox 100% on R/A; ph 19:30 BP 110 / 62; Pulse 109; Resp 18; Pulse Ox 97% on R/A; jb4 20:15 BP 127 / 84; Pulse 107; Resp 16; Pulse Ox 98% on R/A; jb4 21:05 BP 145 / 82; Pulse 105; Resp 16; Pulse Ox 100% on R/A; jb4 22:45 BP 120 / 64; Pulse 105; Resp 18; Temp 97.7(O); Pulse Ox 97% on R/A; jb4 01/16 00:16 BP 132 / 60; Pulse 100; Resp 18; Temp 99.4(O); Pulse Ox 96% on R/A; jb4 01/15 16:26 Body Mass Index 51.65 (145.15 kg, 167.64 cm) ph ED Course: 01/15 16:23 Patient arrived in ED. ph 16:25 Triage completed. ph 16:28 Arm band placed on. ph 16:30 Patient has correct armband on for positive identification. Bed in low position. Call ph light in reach. Side rails up X2. Pulse ox on. NIBP on. Warm blanket given. Pillow given. 16:35 Carrie Harmon, RN is Primary Nurse. ph 16:43 Sunitha Oneal, HILDA [facility]. snw 16:43 Markos Carrillo MD is Attending Physician. snw 18:36 Radiology exam delayed due to lab results not completed at this time. (BUN/Creatinine). nj 18:46 Chest Single View XRAY In Process Unspecified. EDMS 19:00 Inserted saline lock: 22 gauge in right hand, using aseptic technique. ph 19:06 Radiology exam delayed due to lab results not completed at this time. (BUN/Creatinine). vr 19:09 No provider procedures requiring assistance completed. ph 20:00 Radiology exam delayed due to lab results not completed at this time. (BUN/Creatinine). vr 20:21 Sifuentes cath inserted, using sterile technique, 16 Fr., by ga, balloon inflated, to ar5 gravity drainage. 20:51 Knee Left W Con In Process Unspecified. EDMS 22:56 Daniella Kwong MD is Hospitalizing Provider. snw Administered Medications: 21:00 Drug: vancoMYCIN 1 grams Route: IVPB; Infused Over: 2 hrs; Site: right hand; jb4 23:11 Follow up: Response: No adverse reaction; IV Status: Completed infusion; IV Intake: jb4 250ml 21:31 Drug: fentaNYL (PF) 50 mcg Route: IVP; Site: right hand; jb4 22:10 Follow up: Response: No adverse reaction; Pain is decreased jb4 23:11 Drug: Rocephin 1 grams {Note: Given IVP per pharmacy protocol.} Route: IV; Rate: jb4 calculated rate; Site: right hand; 23:13 Follow up: Response: No adverse reaction; IV Status: Completed infusion; IV Intake: 01unkm9 Intake: 23:11 IV: 250ml; Total: 250ml. jb4 23:13 IV: 10ml; Total: 260ml. jb4 Outcome: 22:58 Decision to Hospitalize by Provider. snw 01/16 01:18 Patient left the ED. ak1 Signatures: Dispatcher [employer] EDWA Sunitha Oneal, HOUSEHOLD APPLIANCE MECHANIC-C HOUSEHOLD APPLIANCE MECHANIC-Csnw Nithya Madsen Amber, RN RN ak1 Carrie Harmon RN RN Elder Luna, RN RN jb4 Cornell Dumont, Alexia ar
--- NOTE | 2019-01-15 22:59 | EDPHYS ---
Physician Documentation [facility] Name: Carrie Webb Age: 63 yrs Sex: Female : 1955 Arrival Date: 01/15/2019 Time: 16:23 Bed 14 Private MD: ED Physician Markos Carrillo HPI: 01/15 19:26 This 63 yrs old Female presents to ER via EMS with complaints of Knee Pain. snw 19:26 The patient presents with decreased range of motion, pain, swelling, tenderness. The snw complaints affect the left knee. Context: The problem was sustained at home, resulted from a chronic condition, lymphedema, the patient is not able to bear weight, the patient is not able to ambulate. Onset: The symptoms/episode began/occurred gradually. Modifying factors: The symptoms are alleviated by nothing. the symptoms are aggravated by weight bearing, bending knee. Treatment prior to arrival includes: no previous treatment. Severity of symptoms: At their worst the symptoms were moderate, severe. The patient has experienced similar episodes in the past. The patient has not recently seen a physician. Historical: - Allergies: 16:27 PENICILLINS; ph - PMHx: 16:27 Cellulitis; Diabetes - NIDDM; Hypertension; ph - PSHx: 16:27 Joint replacement; Knee surgery; Hysterectomy; cervical fusion; ; ph - Immunization history:: Adult Immunizations unknown. - Social history:: Smoking status: Patient/guardian denies using tobacco. - Ebola Screening: : No symptoms or risks identified at this time. ROS: 19:25 Eyes: Negative for injury, pain, redness, and discharge, ENT: Negative for injury, snw pain, and discharge, Neck: Negative for injury, pain, and swelling, Cardiovascular: Negative for chest pain, palpitations, and edema, Respiratory: Positive for mild shortness of breath, No cough, wheezing, or pleuritic chest pain, Abdomen/GI: Negative for abdominal pain, nausea, vomiting, diarrhea, and constipation, Back: Negative for injury and pain, : Negative for injury, bleeding, discharge, and swelling, Skin: Negative for injury, rash, and discoloration, Neuro: Negative for headache, weakness, numbness, tingling, and seizure. 19:25 Constitutional: Positive for body aches, malaise, poor PO intake. 19:25 MS/extremity: Positive for decreased range of motion, erythema, pain, swelling, tenderness, warmth, of the left knee. Exam: 18:04 Constitutional: This is a well developed, obese patient who is awake, alert, and in no snw acute distress. Head/Face: Normocephalic, atraumatic. Eyes: Pupils equal round and reactive to light, extra-ocular motions intact. Lids and lashes normal. Conjunctiva and sclera are non-icteric and not injected. Cornea within normal limits. Periorbital areas with no swelling, redness, or edema. ENT: Nares patent. No nasal discharge, no septal abnormalities noted. Tympanic membranes are normal and external auditory canals are clear. Oropharynx with no redness, swelling, or masses, exudates, or evidence of obstruction, uvula midline. Mucous membranes moist. Neck: Trachea midline, no thyromegaly or masses palpated, and no cervical lymphadenopathy. Supple, full range of motion without nuchal rigidity, or vertebral point tenderness. No Meningismus. Chest/axilla: Normal chest wall appearance and motion. Nontender with no deformity. No lesions are appreciated. 18:04 Abdomen/GI: Soft, non-tender, with normal bowel sounds. No distension or tympany. No guarding or rebound. No evidence of tenderness throughout. Back: No spinal tenderness. No costovertebral tenderness. Full range of motion. Skin: Warm, dry with normal turgor. Normal color with no rashes, no lesions, and no evidence of cellulitis. Neuro: Awake and alert, GCS 15, oriented to person, place, time, and situation. Cranial nerves II-XII grossly intact. Motor strength 5/5 in all extremities. Sensory grossly intact. Cerebellar exam normal. Normal gait. Psych: Awake, alert, with orientation to person, place and time. Behavior, mood, and affect are within normal limits. 18:04 Cardiovascular: Rate: tachycardic, Rhythm: regular, Heart sounds: normal. 18:04 Respiratory: mild respiratory distress is noted, Respirations: shallow respirations, that is moderate, tachypnea, Breath sounds: are clear throughout, denies cough. 18:04 Musculoskeletal/extremity: significant lymphedema to bilateral lower extremities. + left knee with erythema, shiny skin, edema, warmth, abrasion to anterior knee. Pt is s/p knee replacement at [facility] in 2006. + sepsis 8 months ago from bilateral lower ext cellulitis. Vital Signs: 16:26 BP 154 / 73; Pulse 105; Resp 22; Temp 98.3(TE); Pulse Ox 100% on R/A; Weight 145.15 kg; ph Height 5 ft. 6 in. (167.64 cm); Pain 8/10; 17:30 BP 148 / 73; Pulse 97; Resp 20; Pulse Ox 99% on R/A; ph 18:30 BP 126 / 71; Pulse 94; Resp 18; Pulse Ox 100% on R/A; ph 19:30 BP 110 / 62; Pulse 109; Resp 18; Pulse Ox 97% on R/A; jb4 20:15 BP 127 / 84; Pulse 107; Resp 16; Pulse Ox 98% on R/A; jb4 21:05 BP 145 / 82; Pulse 105; Resp 16; Pulse Ox 100% on R/A; jb4 22:45 BP 120 / 64; Pulse 105; Resp 18; Temp 97.7(O); Pulse Ox 97% on R/A; jb4 01/16 00:16 BP 132 / 60; Pulse 100; Resp 18; Temp 99.4(O); Pulse Ox 96% on R/A; jb4 01/15 16:26 Body Mass Index 51.65 (145.15 kg, 167.64 cm) ph MDM: 01/15 16:44 Patient medically screened. snw 20:57 Data reviewed: vital signs, nurses notes. Data interpreted: Pulse oximetry: on room air snw is 100 %. Interpretation: normal. Counseling: I had a detailed discussion with the patient and/or guardian regarding: the historical points, exam findings, and any diagnostic results supporting the discharge/admit diagnosis, lab results, the need for further work-up and treatment in the hospital. ED course: Pt changed from Dr. Frost to last year. 22:58 Physician consultation: Daniella Kwong MD was called at 22:30, was contacted at 22:30, [facility] and will see patient in ED, post CT results. 01/15 18:04 Order name: C-Reactive Protein [facility] 01/15 18:04 Order name: T\T\S [facility] 01/15 18:04 Order name: Basic Metabolic Panel [facility] 01/15 18:04 Order name: Blood Culture Adult (2) snw 01/15 18:04 Order name: CBC with Diff snw 01/15 18:04 Order name: Ckmb [facility] 01/15 18:04 Order name: CPK [facility] 01/15 18:04 Order name: Lactate [facility] 01/15 18:04 Order name: LFT's [facility] 01/15 18:04 Order name: Lipase; Complete Time: 20:40 w 01/15 18:04 Order name: Procalcitonin; Complete Time: 20:40 snw 01/15 18:04 Order name: Protime (+inr); Complete Time: 19:50 snw 01/15 18:04 Order name: Ptt, Activated; Complete Time: 19:50 snw 01/15 18:04 Order name: C-Reactive Protein; Complete Time: 20:40 EDMS 01/15 18:04 Order name: Urine Test (obtain specimen); Complete Time: 21:38 snw 01/15 18:04 Order name: Chest Single View XRAY; Complete Time: 19:24 snw 01/15 18:04 Order name: Type and Screen; Complete Time: 20:40 EDMS 01/15 18:04 Order name: Basic Metabolic Panel; Complete Time: 20:40 EDMS 01/15 18:04 Order name: Blood Culture EDMS 01/15 18:04 Order name: CBC with Automated Diff; Complete Time: 20:55 EDMS 01/15 18:04 Order name: CKMB Creatine Kinase MB; Complete Time: 20:40 EDMS 01/15 18:05 Order name: Creatine Phosphokinase; Complete Time: 20:40 EDMS 01/15 18:05 Order name: Lactate; Complete Time: 20:40 EDMS 01/15 18:05 Order name: Liver (Hepatic) Function; Complete Time: 20:40 EDMS 01/15 18:33 Order name: Knee Left W Con; Complete Time: 21:14 EDMS 01/15 19:48 Order name: Manual Differential; Complete Time: 20:55 EDMS 01/15 21:39 Order name: Urine Dipstick--Ancillary (enter results); Complete Time: 21:49 2 01/15 18:04 Order name: Accucheck; Complete Time: 19:14 snw 01/15 18:04 Order name: Cardiac monitoring; Complete Time: 19:14 snw 01/15 18:04 Order name: EKG - Nurse/Tech; Complete Time: 19:47 snw 01/15 18:04 Order name: IV Saline Lock - Large Bore; Complete Time: 19:14 snw 01/15 18:04 Order name: Labs collected and sent; Complete Time: 19:14 snw 01/15 18:04 Order name: O2 Per Protocol; Complete Time: 19:14 snw 01/15 18:04 Order name: O2 Sat Monitoring; Complete Time: 19:14 snw Administered Medications: 21:00 Drug: vancoMYCIN 1 grams Route: IVPB; Infused Over: 2 hrs; Site: right hand; jb4 23:11 Follow up: Response: No adverse reaction; IV Status: Completed infusion; IV Intake: jb4 250ml 21:31 Drug: fentaNYL (PF) 50 mcg Route: IVP; Site: right hand; jb4 22:10 Follow up: Response: No adverse reaction; Pain is decreased jb4 23:11 Drug: Rocephin 1 grams {Note: Given IVP per pharmacy protocol.} Route: IV; Rate: jb4 calculated rate; Site: right hand; 23:13 Follow up: Response: No adverse reaction; IV Status: Completed infusion; IV Intake: [id number] Disposition: 01/15/19 22:58 Hospitalization ordered by Daniella Kwong for Inpatient Admission. Preliminary diagnosis are Urinary tract infection, site not specified, Cellulitis of left lower limb, Lymphedema, not elsewhere classified. - Bed requested for Telemetry/MedSurg (Inpatient). - Status is Inpatient Admission. ak1 - Condition is Stable. - Problem is an acute exacerbation. - Symptoms have worsened. UTI on Admission? Yes Addendum: 01/18/2019 06:50 Co-signature as Attending Physician, Markos Carrillo MD I agree with the assessment and k dr plan of care. Signatures: Dispatcher [employer] EDJessenia Bhatt RN RN kl Rittger, Kevin, MD MD [facility] Sunitha Oneal, MANUFACTURING PROJECT MANAGER-C MANUFACTURING PROJECT MANAGER-Csnw Lu Zarco RN RN ak1 Carrie Harmon RN RN Elder Luna RN RN jb4 Corrections: (The following items were deleted from the chart) 01/16 00:03 01/15 22:58 Hospitalization Ordered by Daniella Kwong MD for Inpatient Admission. kl Preliminary diagnosis is Urinary tract infection, site not specified; Cellulitis of left lower limb; Lymphedema, not elsewhere classified. Bed requested for Telemetry/MedSurg (Inpatient). Status is Inpatient Admission. Condition is Stable. Problem is an acute exacerbation. Symptoms have worsened. UTI on Admission? Yes. snw 01/16 01:18 00:03 01/15/2019 22:58 Hospitalization Ordered by Daniella Kwong MD for Inpatient ak1 Admission. Preliminary diagnosis is Urinary tract infection, site not specified; Cellulitis of left lower limb; Lymphedema, not elsewhere classified. Bed requested for Telemetry/MedSurg (Inpatient). Status is Inpatient Admission. Condition is Stable. Problem is an acute exacerbation. Symptoms have worsened. UTI on Admission? Yes. kl
[2019-01-15] MEDS ORDERED: CEFTRIAXONE/SWI 1gm 1 GM/10 ML SYR ONE (23:12)
--- NOTE | 2019-01-16 00:01 | P.HP ---
Certification for Inpatient Patient admitted to: Inpatient With expected LOS: >2 Midnights Practitioner: I am a practitioner with admitting privileges, knowledge of patient current condition, hospital course, and medical plan of care. Services: Services provided to patient in accordance with Admission requirements found in Title 42 Section 412.3 of the Code of Federal Regulations Patient History Date of Service: 01/15/19 Reason for admission: cellulitis History of Present Illness: Ms Webb is a 63 years old woman with history of obesity, chronic lymphedema , left knee replacement, recurrent episodes of cellulitis in lower extremities, who start with left knee pain about 2-3 days ago. She also noted more swelling and redness on her left knee. She had subjective fever, did not measure her temp. Lab work shows leukocytosis 13.7 K with 4% bands. procalcitonin and lactate are normal. CT left knee shows soft tissue swelling without abscess. Also some joint effusion with thickening of synovial lining, which are chronic signs in a knee prostesis patient according to radiology report. No high suspicion of infected join space. UA was abnormal consistent with UTI. Allergies Penicillins Allergy (Verified 12/11/16 12:27) Hives/Rash Home medications list reviewed: Yes Home Medications: Gabapentin [Gralise] 2 tab PO Q8H 06/03/18 Metformin ER [Glucophage ER*] 1 tab PO DAILY 06/03/18 Tramadol HCl [Ultram] 2 tab PO Q8H 06/03/18 Clindamycin HCl [Cleocin HCl] 150 mg PO TID #15 capsule 06/07/18 Furosemide [Lasix] 20 mg PO DAILY #90 tab 06/07/18 Mupirocin Calcium [Bactroban] 30 gm TP BID #1 cream..g. 06/07/18 - Past Medical/Surgical History Diabetic: Yes -: HTN -: DM -: COPD -: Neuropathy -: Sleep apnea -: PVD -: Atherosclerosis -: Osteoarthritis -: Left knee replacement -: Right knee surgery x2 -: Hysterectomy 2002 -: x2 -: Right breast lumpectomy - benign - Family History Mother -: Diabetes Father -: Heart disease Brother -: Heart disease - Social History Smoking Status: Never smoker Alcohol use: No CD- Drugs: No Caffeine use: Yes Place of Residence: Home Review of Systems 10-point ROS is otherwise unremarkable Physical Examination - Physical Exam General: Alert, In no apparent distress HEENT: Atraumatic, PERRLA, Mucous membr. moist/pink, EOMI, Sclerae nonicteric Neck: Supple, 2+ carotid pulse no bruit, No LAD, Without JVD or thyroid abnormality Respiratory: Clear to auscultation bilaterally, Normal air movement Cardiovascular: Regular rate/rhythm, Normal S1 S2 Gastrointestinal: Normal bowel sounds, No tenderness Musculoskeletal: Tenderness (left knee) Integumentary: Tenderness/swelling (left knee), Erythema Neurological: Normal speech, Normal strength at 5/5 x4 extr, Normal tone, Normal affect Lymphatics: No axilla or inguinal lymphadenopathy - Studies Laboratory Data (last 24 hrs) 01/15/19 19:05: PT 13.4 H, INR 1.14, APTT 28.9 01/15/19 19:05: WBC 13.7 H, Hgb 10.5 L, Hct 31.4 L, Plt Count 230 01/15/19 19:05: Sodium 136, Potassium 3.8, BUN 16, Creatinine 1.18, Glucose 142 H, Total Bilirubin 0.7, AST 14 L, ALT 17, Alkaline Phosphatase 121 H, Lipase 64 L Assessment and Plan - Problems (Diagnosis) (1) Cellulitis of left knee Current Visit: Yes Status: Acute (2) Chronic acquired lymphedema Current Visit: Yes Status: Acute (3) Diabetes Current Visit: No Status: Chronic Qualifiers: Diabetes mellitus type: type 2 Diabetes mellitus residential insulin use: without comb setter use Diabetes mellitus complication status: with neurologic complications Diabetes mellitus complication detail: with unspecified neuropathy Qualified Code(s): E11.40 - Type 2 diabetes mellitus with diabetic neuropathy, unspecified (4) Morbid obesity Current Visit: No Status: Chronic - Plan The patient will be admitted to the hospital due to left knee cellulitis and UTI. Will start empiric treatment with IV Vancomycin and Levaquin. Blood and urine culture are in process. The patient is hemodynamically stable. - Advance Directives Does patient have a Living Will: No Does patient have a Durable POA for Healthcare: No - Code Status/Comfort Care Code Status Assessed: Yes Code Status: Full Code
[2019-01-16] MEDS ORDERED: Levofloxacin 750mg IV 750 MG/150 ML BAG IV SCH (00:47)
[2019-01-16] MEDS ORDERED: ONDANSETRON 4 MG/2 ML VIAL IV PRN (00:47)
[2019-01-16] MEDS ORDERED: ACETAMINOPHEN 500 MG TAB PO PRN (00:47)
[2019-01-16] MEDS ORDERED: NA CHLORIDE 0.9% 1,000 ML IV SCH (00:47)
[2019-01-16] MEDS ORDERED: TRAMADOL HCL 50 MG TAB PO PRN (00:47)
[2019-01-16 01:30] VITALS: BMI 49.2
[2019-01-16] MEDS ORDERED: VANCOMYCIN 1 GM/VIAL ONE (02:52)
[2019-01-16] MEDS ORDERED: NA CHLORIDE 0.9% 250 ML ONE (02:55)
[2019-01-16] MEDS ORDERED: VANCOMYCIN 1 GM in NA CHLORIDE 0.9% 500 ML IVPB ONE (03:00)
[2019-01-16] MEDS ORDERED: Levofloxacin 750mg IV 750 MG/150 ML BAG IV ONE (03:00)
[2019-01-16 06:58] LABS: Absolute Lymphocytes (CBC) 0.7 K/uL (0.7-4.9); Absolute Monocytes 1.2 K/uL (0.1-1.3); Absolute Neutrophil 8.6 K/uL (1.8-8.0); Basophils % 0.2 % (0-1.3); Eosinophils % 0.3 % (0-4.4); Hematocrit 28.9 % (36.0-45.0); Lymphocytes % 6.7 % (15.3-44.8); MPV 8.5 fL (7.6-11.3); Monocytes % 11.4 % (3.3-12.3)
[2019-01-16 07:02] LABS: Urine Appearance TURBID; Urine Bilirubin NEGATIVE (NEG); Urine Blood 2+ (NEG); Urine Color YELLOW; Urine Glucose NEGATIVE (NEG); Urine Protein TRACE (NEG)
[2019-01-16 07:06] LABS: Potassium 3.7 mmol/L (3.5-5.1)
[2019-01-16 07:18] LABS: Urine Microscopic Reflex ORDER UMIC
[2019-01-16 07:19] LABS: Urine Bacteria 20-50 /HPF (<20); Urine Culture Reflex Order NOT NEEDED; Urine RBC 20-50 /HPF (NONE SEEN)
[2019-01-16] MEDS: INSULIN -REGULAR HUMAN 50 UNIT/0.5 ML ML SQ SCH ×4 (07:30→20:45)
[2019-01-16] MEDS ORDERED: POTASSIUM CL SA 10 MEQ TAB PO ONE (09:00)
[2019-01-16] MEDS: ENOXAPARIN 40 MG/0.4 ML SQ SCH (09:29)
[2019-01-16] MEDS ORDERED: IPRATROPIUM BROM 0.5MG/2.5ML NEB PRN (09:34)
[2019-01-16] MEDS ORDERED: ALBUTEROL 2.5 MG/3 ML NEB SOL NEB PRN (09:34)
--- NOTE | 2019-01-16 09:43 | P.PN ---
Subjective Date of Service: 01/16/19 Primary Care Provider: Dr. Hodges Chief Complaint: cellulitis Subjective: Doing well (Force history of chronic lymphedema. History of knee replacement many years ago. Still has some difficulty with walking.) Physical Examination - Vital Signs Temperature: 100.4 F Blood Pressure: 118/54 Pulse: 100 Respirations: 20 Pulse Ox (%): 101 - Physical Exam General: Alert, In no apparent distress, Oriented x3, Cooperative HEENT: Atraumatic Neck: Supple Respiratory: Clear to auscultation bilaterally, Normal air movement Cardiovascular: Normal pulses, Regular rate/rhythm Gastrointestinal: Normal bowel sounds, Soft and benign, Non-distended, No tenderness, No masses, No rebound, No guarding Integumentary: Other (Mild erythema and warmth to the left lower extremity just below the knee. Scar to the left knee from prior knee replacement. No significant erythema to the knee. Chronic lymphedema changes to the lower ext) Neurological: Normal speech, Normal strength at 5/5 x4 extr, Normal tone, Normal affect - Studies Laboratory Data (last 24 hrs) 01/15/19 19:05: PT 13.4 H, INR 1.14, APTT 28.9 01/15/19 19:05: WBC 13.7 H, Hgb 10.5 L, Hct 31.4 L, Plt Count 230 01/15/19 19:05: Sodium 136, Potassium 3.8, BUN 16, Creatinine 1.18, Glucose 142 H, Total Bilirubin 0.7, AST 14 L, ALT 17, Alkaline Phosphatase 121 H, Lipase 64 L Medications List Reviewed: Yes Assessment & Plan Discharge Plan: Home Plan to discharge in: Greater than 2 days Physician Review Additional Text: Impression: Left lower extremity cellulitis with possible UTI complicated with chronic bilateral lymphedema and prior left knee replacement with noted joint effusion without abscess or involvement of the knee Diabetes mellitus type 2 Anemia likely iron and B12 deficiency Acute renal injury likely mild dehydration COPD Suspect chronic diastolic CHF Obstructive sleep apnea Chronic pain Obesity, BMI 49 Plan: Left lower extremity cellulitis with possible UTI complicated with chronic bilateral lymphedema and prior left knee replacement with noted joint effusion without abscess or involvement of the knee: Continue IV antibiotic therapy. Will have physical therapy assess ambulation. Patient would benefit with skilled placement but prefers home health and physical therapy at discharge. Await urine and blood cultures. Continue monitor closely. Will have wound care assess chronic lymphedema. There appears to be no involvement of the knee. Will monitor closely. No need for orthopedic evaluation at this time. Patient had prior knee replacement many years ago. Diabetes mellitus type 2: Will check A1c. Will provide sliding scale. Anemia likely iron and B12 deficiency: Patient with history of B12 deficiency. Will restart B12 supplementation. Will recheck iron and B12 studies. Will monitor closely. Acute renal injury likely mild dehydration: This has improved with hydration. Will discontinue IV fluids at this time as I suspect underlying CHF with lymphedema. COPD: Will provide COPD medication. Respiratory to monitor and adjust closely. Maintain sats above 90%. Suspect chronic diastolic CHF: Discontinue IV fluids at this time. Obtain echocardiogram. Will need to verify home medication. Obstructive sleep apnea: Suspect obstructive sleep apnea. Respiratory to provide CPAP at night. Chronic pain: Will provide medication. Obesity, BMI 49: Will address lifestyle modification education. Time Spent Managing Pts Care (In Minutes): 55
[2019-01-16] MEDS: NACHLORIDE 0.45% 1,000 ML IV SCH ×2 (10:00→17:59)
[2019-01-16 10:40] LABS: Thyroid Stimulating Hormone 0.694 uIU/mL (0.360-3.740)
[2019-01-16 10:57] LABS: Ferritin 206.8 ng/mL (8-388)
[2019-01-16] MEDS: GABAPENTIN 300 MG CAP PO SCH ×2 (10:57→20:46)
[2019-01-16] MEDS: HYDROCODONE/APAP 7.5/325 MG TAB PO PRN ×2 (14:49→20:46)
[2019-01-16] MEDS: ARFORMOTEROL TARTRATE 15 MCG/2 ML VIAL.NEB NEB SCH (19:30)
[2019-01-16] MEDS: VANCOMYCIN 2 GM in NA CHLORIDE 0.9% 500 ML IVPB SCH (20:46)
[2019-01-16] MEDS ORDERED: VANCOMYCIN 2 GM in NA CHLORIDE 0.9% 500 ML IVPB SCH (21:00)
[2019-01-17 05:07] LABS: Absolute Monocytes 0.8 K/uL (0.1-1.3); Absolute Neutrophil 6.8 K/uL (1.8-8.0); Basophils % 0.7 % (0-1.3); Eosinophils % 0.7 % (0-4.4); Hematocrit 27.9 % (36.0-45.0); Lymphocytes % 11.2 % (15.3-44.8); MPV 8.3 fL (7.6-11.3); Monocytes % 9.3 % (3.3-12.3); RBC Red Blood Cell Count 2.89 M/uL (3.86-4.86)
[2019-01-17 05:29] LABS: Magnesium 2.3 mg/dL (1.8-2.4); Potassium 3.7 mmol/L (3.5-5.1)
[2019-01-17] MEDS: NACHLORIDE 0.45% 1,000 ML IV SCH (06:00)
[2019-01-17] MEDS: INSULIN -REGULAR HUMAN 50 UNIT/0.5 ML ML SQ SCH ×4 (07:30→20:27)
[2019-01-17] MEDS ORDERED: KCL 20 MEQ/100 mL IVPB 20 MEQ/100 ML BAG IV SCH (08:00)
[2019-01-17] MEDS: ARFORMOTEROL TARTRATE 15 MCG/2 ML VIAL.NEB NEB SCH ×2 (08:22→20:00)
--- NOTE | 2019-01-17 09:30 | P.PN ---
Subjective Date of Service: 01/17/19 Primary Care Provider: Dr. Hodges Chief Complaint: cellulitis Subjective: Other (Patient continues to improve. Patient is working with physical therapy.) Physical Examination - Vital Signs Temperature: 99.7 F Blood Pressure: 136/62 Pulse: 86 Respirations: 20 Pulse Ox (%): 95 - Physical Exam General: Alert, In no apparent distress, Oriented x3, Cooperative HEENT: Atraumatic Neck: Supple Respiratory: Clear to auscultation bilaterally, Normal air movement Cardiovascular: Normal pulses, Regular rate/rhythm Gastrointestinal: Normal bowel sounds, Soft and benign, Non-distended, No masses , No rebound, No guarding Integumentary: Other (Erythema and swelling to the left lower extremity significantly improved. Chronic lymphedema changes noted to the lower extremities bilateral) - Studies Medications List Reviewed: Yes Assessment & Plan Discharge Plan: Home Plan to discharge in: 24 Hours Physician Review Additional Text: Impression: Left lower extremity cellulitis with possible UTI complicated with chronic bilateral lymphedema and prior left knee replacement with noted joint effusion without abscess or involvement of the knee Diabetes mellitus type 2 with diabetic neuropathy Anemia likely iron and B12 deficiency Acute renal injury likely mild dehydration COPD Suspect chronic diastolic CHF Obstructive sleep apnea Chronic pain Obesity, BMI 49 Plan: Left lower extremity cellulitis with possible UTI complicated with chronic bilateral lymphedema and prior left knee replacement with noted joint effusion without abscess or involvement of the knee: Patient continues to improve. Continue IV antibiotic therapy. Pharmacy to monitor and adjust. Will have physical therapy continue to assess ambulation. Patient prefers to go home with home health and physical therapy at discharge. Await urine and blood cultures. Anticipate discharge tomorrow. I will turn the service over to Dr. Rodriguez tomorrow. I will go over plan of care with her. Diabetes mellitus type 2 with diabetic neuropathy: Will check A1c. Continue with sliding scale. Continue with pain medication as needed. Anemia with iron and B12 deficiency: Patient with history of B12 deficiency. Continue with iron and B12 supplementation. Acute renal injury likely mild dehydration: This has improved with hydration. Dc IV fluids. COPD: Will continue with COPD medication. Respiratory to monitor and adjust closely. Maintain sats above 90%. Suspect chronic diastolic CHF: Patient off IV fluids at this time. Obtain echocardiogram. Obstructive sleep apnea: Suspect obstructive sleep apnea. Respiratory to provide CPAP at night. Chronic pain: Will provide medication. Obesity, BMI 49: Will address lifestyle modification education. Time Spent Managing Pts Care (In Minutes): 55
[2019-01-17] MEDS: ENOXAPARIN 40 MG/0.4 ML SQ SCH (09:34)
[2019-01-17] MEDS: CYANOCOBALAMIN 1,000 MCG TAB PO SCH (09:34)
[2019-01-17] MEDS: GABAPENTIN 300 MG CAP PO SCH ×3 (09:35→20:25)
[2019-01-17] MEDS: HYDROCODONE/APAP 7.5/325 MG TAB PO PRN ×2 (09:35→15:45)
[2019-01-17] MEDS ORDERED: D50W 25 GM/50 ML SYRINGE IV PRN (09:38)
[2019-01-17] MEDS ORDERED: GLUCAGON 1 MG/VIAL IM PRN (09:38)
[2019-01-17] MEDS: DOCUSATE NA 100 MG CAP PO SCH (10:00)
[2019-01-17] MEDS: Levofloxacin 750mg IV 750 MG/150 ML BAG IV SCH (10:52)
[2019-01-17] MEDS: FERROUS SULFATE 325 MG TAB PO SCH ×2 (10:57→20:25)
[2019-01-17] MEDS: VANCOMYCIN 2 GM in NA CHLORIDE 0.9% 500 ML IVPB SCH (15:45)
--- NOTE | 2019-01-17 21:48 | EKG ---
Test Date: 2019-01-15 Test Time: 19:43:49 Unindentured Apprentice: KAILEE MEASUREMENT RESULTS: Intervals: Rate: 105 UT: QRSD: 96 QT: 334 QTc: 441 [place]: P: UT: QRS: 63 T: 36 INTERPRETIVE STATEMENTS: Sinus tachycardia otherwise Normal ECG Compared to ECG 06/03/2018 09:15:21 Sinus rhythm no longer present Sinus arrhythmia no longer present Electronically Signed On 01-17-19 21:47:57 CDT by Edwar Fulton
[2019-01-18 06:48] LABS: Absolute Monocytes 0.6 K/uL (0.1-1.3); Basophils % 0.5 % (0-1.3); Eosinophils % 0.6 % (0-4.4); Hematocrit 28.6 % (36.0-45.0); Lymphocytes % 13.5 % (15.3-44.8); MPV 8.1 fL (7.6-11.3); Monocytes % 8.3 % (3.3-12.3); RBC Red Blood Cell Count 2.96 M/uL (3.86-4.86)
[2019-01-18 06:57] LABS: Magnesium 2.2 mg/dL (1.8-2.4)
[2019-01-18] MEDS: INSULIN -REGULAR HUMAN 50 UNIT/0.5 ML ML SQ SCH ×2 (07:30→11:30)
[2019-01-18] MEDS: ARFORMOTEROL TARTRATE 15 MCG/2 ML VIAL.NEB NEB SCH (07:30)
[2019-01-18] MEDS: VANCOMYCIN 2 GM in NA CHLORIDE 0.9% 500 ML IVPB SCH (08:45)
[2019-01-18] MEDS: HYDROCODONE/APAP 7.5/325 MG TAB PO PRN (08:47)
[2019-01-18] MEDS: ENOXAPARIN 40 MG/0.4 ML SQ SCH (08:47)
[2019-01-18] MEDS: FERROUS SULFATE 325 MG TAB PO SCH (08:48)
[2019-01-18] MEDS: GABAPENTIN 300 MG CAP PO SCH ×2 (08:48→13:39)
[2019-01-18] MEDS: CYANOCOBALAMIN 1,000 MCG TAB PO SCH (08:48)
[2019-01-18] MEDS: DOCUSATE NA 100 MG CAP PO SCH (08:49)
[2019-01-18] MEDS: Levofloxacin 750mg IV 750 MG/150 ML BAG IV SCH (08:49)
[2019-01-18 10:38] VITALS: O2SAT 97
[2019-01-18 12:27] VITALS: BP 125/58; TEMP 98.2
[2019-01-18] MEDS ORDERED: VANCOMYCIN 2 GM in NA CHLORIDE 0.9% 500 ML IVPB SCH (18:00)
--- NOTE | 2019-01-19 03:53 | DS ---
Date of Discharge: 01/18/2019 Admitting Diagnoses: 1.Cellulitis of the left knee. 2.Chronic acquired lymphedema. 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 4.Morbid obesity, BMI 49. Discharge Diagnoses: 1.Left lower extremity cellulitis. 2.UTI. 3.Chronic bilateral lymphedema. 4.Prior left knee replacement with joint effusion without abscess or involvement of the knee. 5.Diabetes mellitus type 2 with diabetic neuropathy. 6.Anemia secondary to iron deficiency and B12 deficiency, currently on supplementation. 7.Acute kidney injury, resolved. 8.COPD, chronic bronchitis. 9.Chronic diastolic heart failure, likely. 10.Obstructive sleep apnea. The patient will need outpatient sleep study. 11.Chronic pain syndrome. 12.Morbid obesity, BMI 49.3. Hospital Course: The patient is a 63-year-old female with history of morbid obesity, chronic lymphed romeo, and left knee replacement, comes in with cellulitis of the lower extremity. The patient had a w crystal count of 13,000 with bands. Lactate and procalcitonin were normal. She was not septic. CT sca n showed left knee soft tissue swelling without abscess and some joint effusion was present with syno vial thickening, which are chronic signs in knee prosthesis patient, per Radiology report. The patie nt was also found to have UTI. Her blood cultures did not show any growth. Her wound cultures did s how gram-negative rods. Her urine culture was no growth. Wound cultures are from the foot. The pat ient's white count normalized. She was treated with IV antibiotics. She worked with PT. At [facility], she uses a walker and is not very mobile. The patient was then doing well. She was afebrile. [facility] was then cleared for discharge and will be sent home with home health care. Followup: The patient is to follow up with primary care physician in 2-3 days, return to ER for wors ening condition. Diet: Diabetic, calorie-restricted diet. Activity: Ambulate with assist using walker. Medications: As per medication reconciliation list. Finish out dose of Keflex for a total of 10 day s. The patient does need to follow up with GI as an outpatient to establish care and to have a colon oscopy, EGD to rule out colon malignancy as a source of her anemia. Likely this is due to her chroni c diseases. However, she has been found to have iron deficiency and B12 deficiency. The patient dean l be on supplementation. The patient was recommended to be evaluated by bariatric surgeon as a long- term solution to her morbid obesity, and her BMI is close to 50. The patient voiced understanding. The patient states that she had declined going to wound care stating that they did not help. The pat iejenna will benefit from Lymphedema [facility] and she was encouraged to follow up as outpatient. Physical Examination: General: Awake, alert, and oriented x3. No acute distress. Morbidly obese female. CV: S1, S2. Regular rate and rhythm. Peripheral pulses present. Respiratory: Moving air well bilaterally. No wheezing. Gastrointestinal: Abdomen is soft, nontender, and nondistended. Positive bowel sounds. Extremities: No clubbing or cyanosis. The patient has chronic lymphedema. Skin: Chronic venous stasis changes. No further erythema. Musculoskeletal: Left knee joint effusion. Neurologic: Nonfocal. The patient does have decreased sensation of light activity. Total time spent discharging the patient was 37 minutes. /DEE Voice ID: [id number] Report ID: [id number]
== END 2019-01-18 14:37 | disposition home health service (06) | DRG 603 ==
LOC: ER 16:14 → ERHOLD 23:49 → 2ND 01-16 00:32
PROVIDERS: ADMIT Internal Medicine; ATTEND Family Medicine
DX: L03.116 Cellulitis of left lower limb (principal); N17.9 Acute kidney failure, unspecified; I50.32 Chronic diastolic (congestive) heart failure; Z68.42 Body mass index [BMI] 45.0-49.9, adult; N39.0 Urinary tract infection, site not specified; I89.0 Lymphedema, not elsewhere classified; E11.40 Type 2 diabetes mellitus with diabetic neuropathy, unspecified; D50.9 Iron deficiency anemia, unspecified; D51.3 Other dietary vitamin B12 deficiency anemia; J42 Unspecified chronic bronchitis; G47.33 Obstructive sleep apnea (adult) (pediatric); G89.4 Chronic pain syndrome; E66.01 Morbid (severe) obesity due to excess calories; Z96.652 Presence of left artificial knee joint; Z88.0 Allergy status to penicillin; E86.0 Dehydration; M25.462 Effusion, left knee
CPT/HCPCS: 36415; 51702; 71045; 73701; 80048; 80076; 80202; 81003; 81015; 82550; 82553; 82607; 82728; 82962; 83036; 83540; 83605; 83690; 83735; 84145; 84439; 84443; 84466; 85025; 85610; 85730; 86140; 86850; 86900; 86901; 87040; 87070; 87077; 87086; 87088; 87186; 87205; 93005; 94640; 96365; 96366; 96375; 97110; 97163; 97530; 99284; J0696; J1650; J3010; J7030; J7605; Q9967

== ENCOUNTER 2020-03-12 08:38 | Inpatient (IN) | payer OTHER ==
[2020-03-12] MEDS ORDERED: NA CHLORIDE 0.9% 1,000 ML ONE (09:17)
[2020-03-12 09:21] LABS: Absolute Lymphocytes (CBC) 0.6 K/uL (0.7-4.9); Hematocrit 32.2 % (36.0-45.0); Lymphocytes % 1.9 % (15.3-44.8); MPV 8.2 fL (7.6-11.3)
[2020-03-12 09:24] LABS: Protime INR 1.21
[2020-03-12 09:36] LABS: ALT/SGPT 9 U/L (12-78); AST/SGOT 13 U/L (15-37); Albumin 2.2 g/dL (3.4-5.0); Alkaline Phosphatase 80 U/L (45-117); BUN Blood Urea Nitrogen 14 mg/dL (7-18); Bicarbonate 25 mmol/L (21-32); Bilirubin Direct 0.4 mg/dL (0-0.2); Bilirubin Total 0.8 mg/dL (0.2-1.0); Creatine Phosphokinase 330 U/L (26-192); Glucose Level 145 mg/dL (74-106); Potassium 3.8 mmol/L (3.5-5.1); Protein, Total 7.5 g/dL (6.4-8.2); Sodium Level 137 mmol/L (136-145); Troponin (Emerg Dept Use Only) < 0.02 ng/mL (0.0-0.045)
[2020-03-12] MEDS ORDERED: CLINDAMYCIN 900MG/D5W 900 MG/50 ML IVPB IV ONE (09:53)
[2020-03-12 09:59] LABS: Blood Morphology Comment NOT SEEN (NOT SEEN); Platelet Estimate ADEQ; Toxic Granulation 1+
[2020-03-12] MEDS ORDERED: VANCOMYCIN/NS 1 gm 1 GM/250 ML BAG IVPB ONE (10:00)
--- NOTE | 2020-03-12 10:11 | EDPHYS ---
Physician Documentation [facility] Name: Carrie Webb Age: 64 yrs Sex: Female : 1955 Arrival Date: 03/12/2020 Time: 08:43 Bed 4 Private MD: ED Physician Berto Spencer HPI: 03/12 09:00 This 64 yrs old Female presents to ER via EMS with complaints of Fever. cp 09:00 The patient reports fever, that was measured at 101 degrees Fahrenheit, recorded by EMS cp prior to arrival. 09:00 Onset: The symptoms/episode began/occurred this morning. cp 09:00 Associated signs and symptoms: Pertinent positives: cough, Pertinent negatives: cp abdominal pain, altered mental status, chest pain, diarrhea, vomiting. 09:00 Patient reports falling from chair this morning about 0400 and remaining on floor until cp found by . Historical: - Allergies: 08:47 PENICILLINS; bp - Home Meds: 08:47 Metformin Oral [Active]; gabapentin oral oral [Active]; Tramadol Oral [Active]; bp - PMHx: 08:47 Cellulitis; Diabetes - NIDDM; Hypertension; LYMPHADEMA; bp - Immunization history:: Adult Immunizations up to date. - Social history:: Smoking status: Patient denies any tobacco usage or history of. ROS: 09:05 Constitutional: Negative for body aches, chills, fever, poor PO intake. cp 09:05 Eyes: Negative for injury, pain, redness, and discharge. cp 09:05 ENT: Negative for drainage from ear(s), ear pain, difficulty swallowing, difficulty handling secretions. 09:05 Cardiovascular: Negative for chest pain. 09:05 Respiratory: Positive for cough, Negative for shortness of breath, wheezing. 09:05 Abdomen/GI: Negative for abdominal pain, vomiting, diarrhea, constipation. 09:05 Skin: Positive for erythema, swelling, of the buttocks, pressure ulcer. 09:05 Neuro: Negative for altered mental status, loss of consciousness, syncope. 09:05 All other systems are negative. Exam: 09:15 Constitutional: The patient appears in no acute distress, alert, awake, cp non-diaphoretic, non-toxic, well developed, well nourished, morbidly obese 09:15 Head/Face: Normocephalic, atraumatic. cp 09:15 Eyes: Periorbital structures: appear normal, Pupils: equal, round, and reactive to light and accomodation, Extraocular movements: intact throughout, Conjunctiva: normal, no exudate, no injection, Sclera: no appreciated abnormality, Lids and lashes: appear normal, bilaterally. 09:15 ENT: External ear(s): are unremarkable, Nose: is normal, Mouth: Lips: moist, Oral mucosa: pink and intact, moist, Posterior pharynx: is normal, airway is patent, no erythema, no exudate. 09:15 Neck: ROM/movement: is normal, is supple, without pain, no range of motions limitations, no nuchal rigidity. 09:15 Chest/axilla: Inspection: normal, Palpation: is normal, no crepitus, no tenderness. 09:15 Cardiovascular: Rate: normal, Rhythm: regular, Edema: pedal edema, that is marked, ankle edema, that is marked, JVD: is not appreciated. 09:15 Respiratory: the patient does not display signs of respiratory distress, Respirations: normal, no use of accessory muscles, no retractions, labored breathing, is not present, Breath sounds: are clear throughout, no decreased breath sounds, no stridor, no wheezing. 09:15 Abdomen/GI: Inspection: abdomen appears normal, Palpation: abdomen is soft and non-tender, in all quadrants. 09:15 Skin: cellulitis, that is moderate, irregular, on the buttocks, noted decubitus cp pressure ulcer. 09:15 Neuro: Orientation: to person, place \T\ time. Mentation: is normal. cp 09:19 ECG was reviewed by the Attending Physician. cp Vital Signs: 08:43 BP 103 / 61; Pulse 98; Resp 17; Temp 98.3(TE); Pulse Ox 97% ; rb1 08:43 Weight 136.08 kg (R); Height 5 ft. 6 in. (167.64 cm) (R); Pain 0/10; rb1 09:43 BP 119 / 79; Pulse 95; Resp 19; Pulse Ox 100% ; rb1 11:07 BP 135 / 60; Pulse 95; Resp 17; Pulse Ox 100% ; bp 13:00 BP 108 / 74; Pulse 90; Resp 17; Pulse Ox 100% ; bp 08:43 Body Mass Index 48.42 (136.08 kg, 167.64 cm) rb1 MDM: 08:54 Patient medically screened. cp 09:05 Differential diagnosis: pneumonia UTI, sepsis, cellulitis, abscess. cp 10:10 Data reviewed: vital signs, nurses notes, lab test result(s), EKG, radiologic studies, cp plain films, I have discussed the patient's presentation/case with the attending Emergency Department Physician; and as a result, I will admit patient. 10:15 Physician consultation: Christophe Peck MD was called at 10:10, was contacted at 10:10, regarding admission, to the medical/surgical unit. patient's condition. 03/12 08:56 Order name: Basic Metabolic Panel; Complete Time: 09:40 / 09:40 Interpretation: Normal except: GLUC 145; GFR 46; CA 7.7. cp 03/12 08:56 Order name: Blood Culture Adult (2) cp 03/12 08:56 Order name: CBC with Diff; Complete Time: 10:08 03/12 09:40 Interpretation: Normal except: WBC 33.3; RBC 3.40; HGB 10.4; HCT 32.2; KATHERYN% 94.8; LYM% cp 1.9; NEUT A 31.5. 03/12 08:56 Order name: CPK; Complete Time: 09:40 cp 03/12 08:56 Order name: Lactate; Complete Time: 09:40 cp 03/12 08:56 Order name: LFT's; Complete Time: 09:40 cp 03/12 08:56 Order name: Procalcitonin; Complete Time: 10:08 cp 03/12 08:56 Order name: Protime (+inr); Complete Time: 09:40 cp 03/12 08:56 Order name: Ptt, Activated; Complete Time: 09:40 cp 03/12 08:56 Order name: Troponin (emerg Dept Use Only); Complete Time: 09:40 cp 03/12 08:56 Order name: Urine Microscopic Only cp 03/12 09:01 Order name: Wound Culture cp 03/12 09:17 Order name: Glucose, Ancillary Testing; Complete Time: 09:40 EDMS 03/12 09:59 Order name: Manual Differential; Complete Time: 10:08 EDMS 03/12 08:56 Order name: Chest Single View XRAY; Complete Time: 12:23 cp 03/12 12:23 Interpretation: Report review. cp 03/12 11:06 Order name: CONS Pharmacy Consult EDMS 03/12 11:06 Order name: Regular EDMS 03/12 11:06 Order name: CBC with Automated Diff EDMS 03/12 11:06 Order name: CBC with Automated Diff EDMS 03/12 11:06 Order name: CBC with Automated Diff EDMS 03/12 11:06 Order name: CBC with Automated Diff EDMS 03/12 11:06 Order name: Comprehensive Metabolic Panel EDMS 03/12 11:06 Order name: Comprehensive Metabolic Panel EDMS 03/12 11:06 Order name: Comprehensive Metabolic Panel EDMS 03/12 12:13 Order name: Urine Dipstick--Ancillary (enter results) lt1 03/12 12:32 Order name: Urine Dipstick-Ancillary EDMS 03/12 08:56 Order name: Accucheck; Complete Time: 09:08 cp 03/12 08:56 Order name: Cardiac monitoring; Complete Time: 09:17 cp 03/12 08:56 Order name: EKG - Nurse/Tech; Complete Time: 09:08 cp 03/12 08:56 Order name: IV Saline Lock - Large Bore; Complete Time: 09:08 cp 03/12 08:56 Order name: Labs collected and sent; Complete Time: 09:08 cp 03/12 08:56 Order name: O2 Per Protocol; Complete Time: 09:08 cp 03/12 08:56 Order name: O2 Sat Monitoring; Complete Time: 09:08 cp 03/12 08:56 Order name: Urine Dipstick-Ancillary (obtain specimen); Complete Time: 12:44 cp 03/12 09:44 Order name: Cath; Complete Time: 12:04 cp 03/12 11:08 Order name: CONS Pharmacy Consult EDMS EC:19 Rate is 88 beats/min. Rhythm is regular. MA interval is normal. QRS interval is normal. cp QT interval is normal. Interpreted by me. Reviewed by me. Administered Medications: 09:19 Drug: NS 0.9% (30 ml/kg) 30 ml/kg Route: IV; Rate: bolus; Site: left forearm; rb1 09:23 Not Given (Physician Discretion): NS 0.9% 1000 ml IV at 1000 ml/hr Per protocol; 1000 cp mL bolus 09:53 Drug: Clindamycin 900 mg Route: IVPB; Infused Over: 30 mins; Site: right wrist; rb1 10:15 Drug: vancoMYCIN 1 grams Route: IVPB; Infused Over: 2 hrs; Site: left antecubital; bp 10:53 Drug: NS 0.9% (30 ml/kg) 30 ml/kg Route: IV; Rate: bolus; Site: left antecubital; bp Disposition: 15:05 Co-signature as Attending Physician, Berto Spencer MD. rn Disposition: 03/12/20 10:11 Hospitalization ordered by Christophe Peck for Inpatient Admission. Preliminary diagnosis are Other sepsis, Pressure ulcer - decubitus, Cellulitis of buttock. - Bed requested for Telemetry/MedSurg (Inpatient). - Status is Inpatient Admission. bp - Condition is Stable. - Problem is new. - Symptoms have improved. Signatures: Dispatcher [employer] EDMS Berto Spencer MD MD rn Juanito Luu PA PA cp Britany Allen RN RN rb1 Gordon Go RN RN bp Botello, Elizabeth eb Corrections: (The following items were deleted from the chart) 09:40 09:40 Normal except: GLUC 145; GFR 46. cp cp 11:34 10:11 Hospitalization Ordered by Christophe Peck MD for Inpatient Admission. eb Preliminary diagnosis is Other sepsis; Pressure ulcer - decubitus; Cellulitis of buttock. Bed requested for Telemetry/MedSurg (Inpatient). Status is Inpatient Admission. Condition is Stable. Problem is new. Symptoms have improved. cp 13:36 11:34 03/12/2020 10:11 Hospitalization Ordered by Christophe Peck MD for Inpatient bp Admission. Preliminary diagnosis is Other sepsis; Pressure ulcer - decubitus; Cellulitis of buttock. Bed requested for Telemetry/MedSurg (Inpatient). Status is Inpatient Admission. Condition is Stable. Problem is new. Symptoms have improved. eb
--- NOTE | 2020-03-12 10:11 | ER ---
Nurse's Notes [facility] Name: Carrie Webb Age: 64 yrs Sex: Female : 1955 Arrival Date: 03/12/2020 Time: 08:43 Bed 4 Private MD: Diagnosis: Other sepsis;Pressure ulcer-decubitus;Cellulitis of buttock Presentation: 03/12 08:43 Chief complaint: EMS states: SLID OUT OF CHAIR, PROLONGED TIME DOWN, NOW WITH FEVER. bp Coronavirus screen: Proceed with normal triage. Patient denies a cough. Patient denies shortness of breath or difficulty breathing. Patient reports a measured and/or subjective temperature greater than 100.4F. Ebola Screen: No symptoms or risks identified at this time. Initial Sepsis Screen: Does the patient meet any 2 criteria? HR > 90 bpm. No. Patient's initial sepsis screen is negative. Does the patient have a suspected source of infection? Yes: Skin breakdown/wound. Risk Assessment: Do you want to hurt yourself or someone else? Patient reports no desire to harm self or others. Onset of symptoms is unknown. Care prior to arrival: IV initiated. 20 GA, in the right hand. 08:43 Method Of Arrival: EMS: [facility] bp 08:43 Acuity: YOSSI 3 bp Triage Assessment: 08:43 Derm: Skin is Buttocks is dark purple on both sides and a stage 2 decubitus is noted on rb1 the sacrum. Weeping lymphedema noted to bilateral lower legs, pt. has onofre bandages on both legs. A foul odor is noted. 08:47 General: Appears in no apparent distress. comfortable, obese, Behavior is cooperative, bp appropriate for age, anxious. Pain: Complains of pain in buttocks, right leg and left leg. EENT: No deficits noted. Neuro: No deficits noted. Cardiovascular: Rhythm is sinus rhythm. Respiratory: No deficits noted. GI: No signs and/or symptoms were reported involving the gastrointestinal system. : No signs and/or symptoms were reported regarding the genitourinary system. Derm: BLE LYMPHEDEMA Decubitus located on sacrum. Musculoskeletal: No deficits noted. Historical: - Allergies: 08:47 PENICILLINS; bp - Home Meds: 08:47 Metformin Oral [Active]; gabapentin oral oral [Active]; Tramadol Oral [Active]; bp - PMHx: 08:47 Cellulitis; Diabetes - NIDDM; Hypertension; LYMPHADEMA; bp - Immunization history:: Adult Immunizations up to date. - Social history:: Smoking status: Patient denies any tobacco usage or history of. Screenin:49 Abuse screen: Denies threats or abuse. Denies injuries from another. Nutritional bp screening: No deficits noted. Tuberculosis screening: No symptoms or risk factors identified. Fall Risk None identified. Assessment: 08:49 General: SEE TRIAGE NOTE. bp 09:49 Reassessment: Patient appears in no apparent distress at this time. No changes from rb1 previously documented assessment. 11:07 Reassessment: PT SEEN BY DR PECK. ADMIT IN PROCESS. bp Vital Signs: 08:43 BP 103 / 61; Pulse 98; Resp 17; Temp 98.3(TE); Pulse Ox 97% ; rb1 08:43 Weight 136.08 kg (R); Height 5 ft. 6 in. (167.64 cm) (R); Pain 0/10; rb1 09:43 BP 119 / 79; Pulse 95; Resp 19; Pulse Ox 100% ; rb1 11:07 BP 135 / 60; Pulse 95; Resp 17; Pulse Ox 100% ; bp 13:00 BP 108 / 74; Pulse 90; Resp 17; Pulse Ox 100% ; bp 08:43 Body Mass Index 48.42 (136.08 kg, 167.64 cm) rb1 ED Course: 08:43 Patient arrived in ED. bp 08:45 Triage completed. bp 08:47 Arm band placed on. bp 08:49 Patient has correct armband on for positive identification. Bed in low position. Call bp light in reach. Side rails up X2. 08:49 Maintain EMS IV. Dressing intact. Good blood return noted. Site clean \T\ dry. Gauge \T\ bp site: 20 G R HAND. 08:51 Juanito Luu PA is PHCP. cp 08:51 Berto Spencer MD is Attending Physician. cp 08:53 Britany Allen, BERNADETTE is Primary Nurse. rb1 09:06 Inserted saline lock: 20 gauge in left forearm, using aseptic technique. Blood aa5 collected. 09:06 Initial lab(s) drawn, by me, sent to lab. First set of blood cultures drawn by me. aa5 09:34 Second set of blood cultures drawn. kj1 09:42 Chest Single View XRAY In Process Unspecified. EDMS 10:09 Christophe Peck MD is Hospitalizing Provider. cp 12:08 Sifuentes cath inserted, using sterile technique, 16 Fr., by me, balloon inflated, returned iw ivon urine. Patient tolerated well. 13:13 No provider procedures requiring assistance completed. Patient admitted, IV remains in bp place. Administered Medications: 09:19 Drug: NS 0.9% (30 ml/kg) 30 ml/kg Route: IV; Rate: bolus; Site: left forearm; rb1 09:23 Not Given (Physician Discretion): NS 0.9% 1000 ml IV at 1000 ml/hr Per protocol; 1000 cp mL bolus 09:53 Drug: Clindamycin 900 mg Route: IVPB; Infused Over: 30 mins; Site: right wrist; rb1 10:15 Drug: vancoMYCIN 1 grams Route: IVPB; Infused Over: 2 hrs; Site: left antecubital; bp 10:53 Drug: NS 0.9% (30 ml/kg) 30 ml/kg Route: IV; Rate: bolus; Site: left antecubital; bp Outcome: 10:11 Decision to Hospitalize by Provider. cp 13:11 Admitted to Med/surg accompanied by tech, via stretcher, room 217, with chart, Report bp called to KARINE FLEMING 13:11 Condition: stable 13:11 Instructed on the need for admit. 13:36 Patient left the ED. bp Signatures: Dispatcher [employer] EDMS Keyla Lazo RN RN iw Yashira Flynn RN RN aa5 Juanito Luu PA PA cp Britany Allen, BERNADETTE RN rb1 Gordon Go RN RN bp Jackson, Kandis kj1 Corrections: (The following items were deleted from the chart) 08:53 08:43 BP 103 / 61; Pulse 98bpm; Resp 17bpm; Pulse Ox 97%; Temp 101F; bp rb1 12:08 12:08 Sifuentes cath inserted, using sterile technique, 16 Fr., by me, balloon inflated, iw returned ivon urine. Patient tolerated well. bp
[2020-03-12] MEDS ORDERED: MORPHINE 2 MG/ML SYR IV PRN (11:01)
[2020-03-12] MEDS ORDERED: ONDANSETRON 4 MG/2 ML VIAL IV PRN (11:01)
--- NOTE | 2020-03-12 11:01 | P.HP ---
Certification for Inpatient Patient admitted to: Inpatient With expected LOS: >2 Midnights Patient will require the following post-hospital care: None Practitioner: I am a practitioner with admitting privileges, knowledge of patient current condition, hospital course, and medical plan of care. Services: Services provided to patient in accordance with Admission requirements found in Title 42 Section 412.3 of the Code of Federal Regulations Patient History Date of Service: 03/12/20 Reason for admission: Fever elevated white count History of Present Illness: Patient is 64 years of age admitted with fever for the past 2 days she is chronic lymphedema in a decubitus ulcer apparently she slipped from a chair fell on the floor apparently was lying on the floor for quite some time denies any shortness of breath or cough no prior history of cardiopulmonary problems white count was very elevated Allergies Penicillins Allergy (Verified 01/16/19 01:48) Hives/Rash Home Medications: Gabapentin 600 mg PO TID 01/16/19 Metformin ER [Glucophage ER*] 250 mg PO DAILY 01/16/19 Tramadol HCl [Ultram] 100 mg PO TID 01/16/19 Cephalexin [Keflex] 500 mg PO Q6HR #28 cap 01/18/19 Cyanocobalamin [Vitamin B-12*] 1,000 mcg PO DAILY #30 tab 01/18/19 Docusate [Colace Cap*] 100 mg PO DAILY #30 cap 01/18/19 Ferrous Sulfate [Ferrous Sulfate*] 325 mg PO BID #30 tab 01/18/19 - Past Medical/Surgical History Diabetic: Yes -: HTN -: DM -: COPD -: Neuropathy -: Sleep apnea -: PVD -: Atherosclerosis -: Osteoarthritis -: Left knee replacement -: Right knee surgery x2 -: Hysterectomy 2002 -: x2 -: Right breast lumpectomy - benign - Family History Mother -: Diabetes Father -: Heart disease Brother -: Heart disease - Social History Alcohol use: No CD- Drugs: No Caffeine use: Yes Review of Systems General: Weakness Integumentary: Other (Chronic lymphedema) Physical Examination - Vital Signs Temperature: 98.3 F Blood Pressure: 103/61 Pulse: 98 Respirations: 17 Pulse Ox (%): 97 - Physical Exam General: Alert, In no apparent distress, Oriented x3 Neck: Supple Respiratory: Clear to auscultation bilaterally Cardiovascular: Edema (Chronic lymphedema) Gastrointestinal: Normal bowel sounds, Soft and benign Musculoskeletal: No clubbing, No swelling, No contractures Integumentary: Other (Patient has a grade 2 decubitus ulcer on the sacrum as per the nurse) Neurological: Normal speech, Normal strength at 5/5 x4 extr, Cranial nerves 3-12 intact - Studies Laboratory Data (last 24 hrs) 03/12/20 09:06: PT 14.2 H, INR 1.21, APTT 27.7 03/12/20 09:06: WBC 33.3 H*, Hgb 10.4 L, Hct 32.2 L, Plt Count 264 03/12/20 09:06: Sodium 137, Potassium 3.8, BUN 14, Creatinine 1.20, Glucose 145 H, Total Bilirubin 0.8, AST 13 L, ALT 9 L, Alkaline Phosphatase 80 Assessment and Plan - Problems (Diagnosis) (1) Sepsis Current Visit: Yes Status: Acute Plan: Patient is 64 years of age admitted with some fever elevated white count [place] [id number] normal pro calcitonin and lactic acid hemodynamically stable will admit await for blood cultures IV antibiotics Zosyn and vancomycin Qualifiers: Sepsis type: sepsis due to unspecified organism - Advance Directives Does patient have a Living Will: No Does patient have a Durable POA for Healthcare: No
[2020-03-12] MEDS ORDERED: Pharmacy Consult 1 EA XX PRN (11:05)
[2020-03-12] MEDS ORDERED: D5 0.45 NS 1,000 ML IV SCH (12:00)
--- NOTE | 2020-03-12 12:21 | RAD REPORT ---
EXAM DESCRIPTION: RAD - Chest Single View - 03/12/2020 9:41 am CLINICAL HISTORY: COUGH Chest pain. COMPARISON: Chest Single View dated 01/15/2019; Chest Single View dated 06/04/2018; Chest Single View d ated 06/03/2018; Chest Single View dated 12/07/2016 FINDINGS: Portable technique limits examination quality. The lungs are grossly clear. The heart is normal in size. No displaced fractures.Cervical hardware pl ate is present. IMPRESSION: No acute intrathoracic process suspected.
[2020-03-12 12:32] LABS: Urine Blood 2+ (NEG); Urine Glucose NEGATIVE (NEG); Urine Protein TRACE (NEG); Urine pH 5.5 (5.0-7.0)
[2020-03-12 12:46] LABS: Urine RBC <5 /HPF (NONE SEEN)
[2020-03-12 12:47] LABS: Urine Bacteria <20 /HPF (<20)
[2020-03-12 12:48] LABS: Urine Culture Reflex Order NOT NEEDED; Urine Yeast FEW (NONE SEEN)
[2020-03-12 13:58] VITALS: BMI 46.1
[2020-03-12] MEDS: Meropenem 1,000 MG in NA CHLORIDE 0.9% 100 ML IV SCH (17:25)
[2020-03-12] MEDS ORDERED: NA CHLORIDE 0.9% 250 ML IV ONE (20:18)
[2020-03-12] MEDS: D5 0.9 NS 1,000 ML IV SCH (20:30)
[2020-03-13] MEDS: Meropenem 1,000 MG in NA CHLORIDE 0.9% 100 ML IV SCH ×3 (00:15→17:17)
[2020-03-13 05:02] LABS: Absolute Lymphocytes (CBC) 0.9 K/uL (0.7-4.9); Basophils % 0.1 % (0-1.3); Lymphocytes % 4.5 % (15.3-44.8); MPV 8.4 fL (7.6-11.3); RBC Red Blood Cell Count 3.16 M/uL (3.86-4.86)
[2020-03-13 05:17] LABS: Albumin 1.7 g/dL (3.4-5.0); Bilirubin Total 0.5 mg/dL (0.2-1.0); Potassium 3.5 mmol/L (3.5-5.1); Protein, Total 6.2 g/dL (6.4-8.2)
[2020-03-13] MEDS: D5 0.9 NS 1,000 ML IV SCH (09:53)
--- NOTE | 2020-03-13 10:52 | EKG ---
Test Date: 2020-03-12 Test Time: 09:09:06 Floorworker Lasting: LILI MEASUREMENT RESULTS: Intervals: Rate: 88 SD: 154 QRSD: 96 QT: 370 QTc: 447 Golden: P: 63 SD: 154 QRS: 57 T: 62 INTERPRETIVE STATEMENTS: Normal sinus rhythm Normal ECG Compared to ECG 01/15/2019 19:43:49 Sinus tachycardia no longer present Electronically Signed On 03-13-20 10:49:17 CDT by Shailesh Westfall
--- NOTE | 2020-03-13 11:41 | P.PN ---
Subjective Date of Service: 03/13/20 (Hospitalist) Chief Complaint: Sepsis Subjective: Improving (Patient is improving still blood pressure is little low requiring IV fluids otherwise patient does not have any complaints very comfortable) Review of Systems Unremarkable Physical Examination - Vital Signs Temperature: 98.0 F Blood Pressure: 112/60 Pulse: 78 Respirations: 20 Pulse Ox (%): 95 - Physical Exam General: Alert, In no apparent distress, Oriented x3 Respiratory: Clear to auscultation bilaterally Cardiovascular: Edema Gastrointestinal: Normal bowel sounds, Soft and benign Assessment & Plan - Problems (Diagnosis) (1) Sepsis Current Visit: Yes Status: Acute Plan: Continue with present medications source of sepsis probably the legs from a lymphedema so far cultures are negative white count is declining continue with IV antibiotics review would tomorrow for possible discharge patient is afebrile decubitus wound does not appear to be infected possible discharge tomorrow on levofloxacin and Bactrim labs reviewed change to lactated Ringer's patient is a diabetic doubt urosepsis Qualifiers: Sepsis type: sepsis due to unspecified organism (2) Decubitus ulcer Current Visit: Yes Status: Acute Plan: Patient has a decubitus ulcer stage II to see the wound healing Qualifiers: Pressure injury location: sacral region Pressure injury stage: stage 2 Qualified Code(s): L89.152 - Pressure ulcer of sacral region, stage 2
[2020-03-13] MEDS: GABAPENTIN 300 MG CAP PO SCH ×2 (13:07→20:58)
[2020-03-13] MEDS: Ringers Lactate 1,000 ML IV SCH ×2 (13:07→20:00)
[2020-03-13] MEDS: VANCOMYCIN 2 GM in NA CHLORIDE 0.9% 500 ML IVPB SCH (14:00)
[2020-03-13] MEDS: PROMOD 30 ML DOSE PO SCH (20:59)
[2020-03-13] MEDS: ACETAMINOPHEN 500 MG TAB PO PRN (21:10)
[2020-03-14] MEDS: Meropenem 1,000 MG in NA CHLORIDE 0.9% 100 ML IV SCH ×3 (00:15→16:20)
[2020-03-14] MEDS: Ringers Lactate 1,000 ML IV SCH ×2 (02:30→11:34)
[2020-03-14 04:51] LABS: Absolute Lymphocytes (CBC) 1.1 K/uL (0.7-4.9); Basophils % 0.5 % (0-1.3); Hematocrit 30.4 % (36.0-45.0); Lymphocytes % 13.1 % (15.3-44.8); MPV 8.4 fL (7.6-11.3); RBC Red Blood Cell Count 3.17 M/uL (3.86-4.86)
[2020-03-14 05:16] LABS: Albumin 1.6 g/dL (3.4-5.0); Bilirubin Total 0.3 mg/dL (0.2-1.0); Potassium 3.7 mmol/L (3.5-5.1); Thyroid Stimulating Hormone 1.22 uIU/mL (0.360-3.740)
--- NOTE | 2020-03-14 08:01 | P.PN ---
Subjective Date of Service: 03/14/20 Chief Complaint: Sepsis Subjective: Improving (Patient is doing much better denies any complaints most likely she has cellulitis white count is now normal) Review of Systems Unremarkable General: Weakness Physical Examination - Vital Signs Temperature: 97.2 F Blood Pressure: 93/49 Pulse: 69 Respirations: 18 Pulse Ox (%): 95 - Physical Exam General: Alert, In no apparent distress, Oriented x3 HEENT: Atraumatic Neck: Supple Respiratory: Clear to auscultation bilaterally Cardiovascular: Normal S1 S2, Edema (Patient has chronic lymphedema with possible cellulitis) - Studies Microbiology Data (last 24 hrs): 03/12/20 09:20 Wound - Coccyx Gram Stain - Final Assessment & Plan - Problems (Diagnosis) (1) Sepsis Current Visit: Yes Status: Acute Plan: Clinically patient is improving blood pressure is also slightly low will again bolus are found is no normal blood cultures are negative wound culture show multiple organisms continue with IV antibiotics repeat pro calcitonin the plan to Dc the Sifuentes catheter ambulate monitor blood pressures Qualifiers: Sepsis type: sepsis due to unspecified organism Sepsis acute organ dysfunction status: without acute organ dysfunction Qualified Code(s): A41.9 - Sepsis, unspecified organism (2) Decubitus ulcer Current Visit: Yes Status: Acute Plan: Patient has a decubitus ulcer will have wound healing evaluate her Qualifiers: Pressure injury location: sacral region Pressure injury stage: stage 2 Qualified Code(s): L89.152 - Pressure ulcer of sacral region, stage 2 (3) Bilateral lower leg cellulitis Onset Date: 09/10/16 Current Visit: No Status: Acute Plan: I suspect S the cause of her sepsis she has had multiple occurrences before this wondered when to meropenem and vancomycin probably discharge her on levofloxacin and doxycycline
[2020-03-14] MEDS ORDERED: Ringers Lactate 1,000 ML IV ONE (08:19)
[2020-03-14] MEDS: ACETAMINOPHEN 500 MG TAB PO PRN (08:48)
[2020-03-14] MEDS: PROMOD 30 ML DOSE PO SCH (08:50)
[2020-03-14] MEDS: GABAPENTIN 300 MG CAP PO SCH ×2 (08:52→13:18)
[2020-03-14] MEDS ORDERED: METFORMIN ER 500 MG TAB PO SCH (09:00)
[2020-03-14] MEDS ORDERED: CYANOCOBALAMIN 1,000 MCG TAB PO SCH (09:00)
[2020-03-14] MEDS ORDERED: DOCUSATE NA 100 MG CAP PO SCH (09:00)
[2020-03-14 12:14] VITALS: O2SAT 99
[2020-03-14] MEDS: VANCOMYCIN 2 GM in NA CHLORIDE 0.9% 500 ML IVPB SCH (13:19)
--- NOTE | 2020-03-14 16:31 | P.DS ---
Admission Date: 03/12/20 Discharge Date: 03/14/20 Disposition: ROUTINE DISCHARGE Discharge Condition: FAIR Reason for Admission: Sepsis - Problems (1) Sepsis Current Visit: Yes Status: Acute Qualifiers: Sepsis type: sepsis due to unspecified organism Sepsis acute organ dysfunction status: without acute organ dysfunction Qualified Code(s): A41.9 - Sepsis, unspecified organism (2) Decubitus ulcer Current Visit: Yes Status: Acute Qualifiers: Pressure injury location: sacral region Pressure injury stage: stage 2 Qualified Code(s): L89.152 - Pressure ulcer of sacral region, stage 2 (3) Bilateral lower leg cellulitis Onset Date: 09/10/16 Current Visit: No Status: Acute Brief History of Present Illness: Patient is 64 years of age admitted with fever for the past 2 days she is chronic lymphedema in a decubitus ulcer apparently she slipped from a chair fell on the floor apparently was lying on the floor for quite some time denies any shortness of breath or cough no prior history of cardiopulmonary problems white count was very elevated Hospital Course: Aw with cellulitis and elevated WBC. Respponded well to Ab. Sacral decub ulcer. S/B Dr. Sheffield. VS stable at [facility] Vital Signs/Physical Exam: Temp Pulse Resp BP Pulse Ox 97.7 F 76 18 125/58 L 95 03/14/20 12:00 03/14/20 12:00 03/14/20 12:00 03/14/20 12:00 03/14/20 12:00 General: Alert, In no apparent distress, Oriented x3 Respiratory: Clear to auscultation bilaterally Cardiovascular: Normal S1 S2, Edema Laboratory Data at Discharge: WBC 8.7 K/uL (4.3-10.9) D 03/14/20 04:30 Hgb 9.9 g/dL (12.0-15.0) L 03/14/20 04:30 Hct 30.4 % (36.0-45.0) L 03/14/20 04:30 Plt Count 197 K/uL (152-406) 03/14/20 04:30 PT 14.2 SECONDS (9.5-12.5) H 03/12/20 09:06 INR 1.21 03/12/20 09:06 APTT 27.7 SECONDS (24.3-36.9) 03/12/20 09:06 Sodium 141 mmol/L (136-145) 03/14/20 04:30 Potassium 3.7 mmol/L (3.5-5.1) 03/14/20 04:30 BUN 11 mg/dL (7-18) 03/14/20 04:30 Creatinine 0.86 mg/dL (0.55-1.3) 03/14/20 04:30 Glucose 95 mg/dL (74-106) 03/14/20 04:30 Total Bilirubin 0.3 mg/dL (0.2-1.0) 03/14/20 04:30 AST 10 U/L (15-37) L 03/14/20 04:30 ALT 8 U/L (12-78) L 03/14/20 04:30 Alkaline Phosphatase 68 U/L (45-117) 03/14/20 04:30 Home Medications: Gabapentin 600 mg PO TID 01/16/19 Metformin ER [Glucophage ER*] 500 mg PO DAILY 01/16/19 Tramadol HCl [Ultram] 100 mg PO TID 01/16/19 Docusate [Colace Cap*] 100 mg PO DAILY #30 cap 01/18/19 Ferrous Sulfate [Ferrous Sulfate*] 325 mg PO BID #30 tab 01/18/19 Cyanocobalamin [Vitamin B-12*] 1,000 mcg PO DAILY tab 03/14/20 Doxycycline Hyclate 100 mg PO BID #20 tablet. 03/14/20 Levofloxacin [Levaquin] 500 mg PO DAILY #10 tablet 03/14/20 New Medications: Doxycycline Hyclate 100 mg PO BID #20 tablet. Levofloxacin [Levaquin] 500 mg PO DAILY #10 tablet Patient Discharge Instructions: Patient to follow up with primary care physician an wound healing Center for a lymphedema and decubitus ulcers. Patient resume all her home medication Diet: Regular Activity: Ad iva Time spent managing pt's care (in minutes): 30
[2020-03-14 17:35] VITALS: BP 115/55; TEMP 98
--- NOTE | 2020-03-14 18:33 | CON ---
Date of Consultation: 03/14/2020 Reason For Consultation: Sacral decubitus and right buttock wound. History Of Present Illness: Patient is a 64-year-old female, who was admitted 2 days ago with chroni c lymphedema and decubitus ulcer. She fell and was lying down on the floor for quite a while and she was admitted because of fever and elevated white count. She denies any purulent discharge. She styles s not have any fever now. She does have a problem with constipation and no sore throat, runny nose, cough, headaches, or dizziness. No chest pain. Review of Systems: Otherwise unremarkable. Medical History: Significant for hypertension, diabetes, COPD, sleep apnea, peripheral vascular dise ase, lymphedema, osteoarthritis, atherosclerosis. Past Surgical History: Left knee surgery, right knee surgery x2, hysterectomy, , right arline st lumpectomy which was benign. Allergies: INCLUDE PENICILLIN; HIVES AND RASH. SHE DOES NOT SMOKE OR DRINK. Family History: Significant for mother with diabetes; father with heart disease. Physical Examination: Vital Signs: Her vitals are stable. She is afebrile. General: She is awake, alert, and oriented x3. Head and Neck: No masses. Chest: Clear. Heart: S1, S2. Abdomen: Soft. Extremities: Neurovascularly intact. She has lymphedema with chronic indurated skin, but it appears there is wrinkling. The aerosol fluid is off. At this time, she states that she wraps her legs wit h Juan J wraps herself. On the sacrum, there is approximately a 5 x 7 cm area of a stage IV decubitus w ith fibrin present in the center of it. There is some granulation tissue around the edges and there is no surrounding erythema, warmth, or edema on the right buttock in the lower gluteal crease. There are 2 stage III decubitus with fibrin present approximately 2 x 2 cm and 1 x 3 cm. No surrounding e rythema, warmth, or edema. Laboratory Data: Her white count is normal. There is slight left shift. H and H are 9.9 and 30.4, INR is 1.21. Her electrolytes reviewed, essentially unremarkable. Albumin is 1.6. Her UA showed yeas t, otherwise unremarkable. Wound culture was done on Friday, which showed skin dionicio in the cultures preliminary. Assessment: A 64-year-old female with multiple medical problems with sacral decubitus, and a right b uttock wounds. Recommendation: Nutritional optimization, vitamins as ordered, off loading, collagenase dressing, wi ll follow up in the wound healing center in 1 week. Will debride it in the clinic if possible if the fibrin has softened. If not, patient may need surgical debridement. Also for the lymphedema, we wi ll refer her to an outpatient lymphedema clinic when we see her in the wound healing center for wraps . /DEE Voice ID: [id number] Report ID: [id number]
[2020-03-15] MEDS ORDERED: COLLAGENASE 30 GM OINTMENT TOP SCH (09:00)
== END 2020-03-14 17:59 | disposition home or self-care (01) | DRG 872 ==
LOC: ER 08:38 → SUPCPDRO 08:38 → ERHOLD 11:02 → 2ND 13:11
PROVIDERS: ADMIT Internal Medicine Sleep Medicine; ATTEND Internal Medicine Sleep Medicine
DX: A41.9 Sepsis, unspecified organism (principal); L03.116 Cellulitis of left lower limb; L03.115 Cellulitis of right lower limb; E11.40 Type 2 diabetes mellitus with diabetic neuropathy, unspecified; I10 Essential (primary) hypertension; L89.152 Pressure ulcer of sacral region, stage 2; D64.9 Anemia, unspecified; J44.9 Chronic obstructive pulmonary disease, unspecified; I89.0 Lymphedema, not elsewhere classified; E11.51 Type 2 diabetes mellitus with diabetic peripheral angiopathy without gangrene; W07.XXXA Fall from chair, initial encounter; Z96.652 Presence of left artificial knee joint; Z90.710 Acquired absence of both cervix and uterus; Z90.12 Acquired absence of left breast and nipple; Z79.84 Long term (current) use of oral hypoglycemic drugs; Z79.899 Other long term (current) drug therapy; Z88.0 Allergy status to penicillin
CPT/HCPCS: 36415; 51702; 71045; 80048; 80053; 80076; 81003; 81015; 82550; 82947; 83605; 84145; 84443; 84484; 85025; 85610; 85730; 87040; 87070; 87077; 87186; 87205; 93005; 97116; 97162; 99285; J2270; J3370; J7030; J7040; J7042; J7120; J7799

== ENCOUNTER 2020-03-25 10:06 | Emergency (ER) | payer OTHER ==
[2020-03-25 11:53] LABS: Absolute Lymphocytes (CBC) 0.8 K/uL (0.7-4.9); Basophils % 1.5 % (0-1.3); Hematocrit 35.2 % (36.0-45.0); Lymphocytes % 8.9 % (15.3-44.8); MPV 8.2 fL (7.6-11.3); RBC Red Blood Cell Count 3.71 M/uL (3.86-4.86)
[2020-03-25 12:26] LABS: Potassium 3.9 mmol/L (3.5-5.1)
--- NOTE | 2020-03-25 12:45 | ER ---
Nurse's Notes [facility] Name: Carrie Webb Age: 64 yrs Sex: Female : 1955 Arrival Date: 03/25/2020 Time: 10:08 Bed 2 Private MD: Diagnosis: Lymphedema, not elsewhere classified Presentation: 03/25 10:12 Chief complaint: Patient states: " Was admitted to the hosp for cellulitis, was ca1 discharged about a week ago. I have been taking antibiotics prescribed at discharged but I feel like it's not getting better. When I left the hospital my legs were still swollen and the day after it was more swollen". Coronavirus screen: Proceed with normal triage. Patient denies a cough. Patient denies shortness of breath or difficulty breathing. Patient denies measured and/or subjective temperature greater than 100.4F prior to today's visit. Patient denies travel on a cruise ship or to a country the [facility] currently lists as an affected area. Patient denies contact with known and/or suspected case of COVID-19. Ebola Screen: Patient negative for fever greater than or equal to 101.5 degrees Fahrenheit, and additional compatible Ebola Virus Disease symptoms Patient denies exposure to infectious person. Patient denies travel to an Ebola-affected area in the 21 days before illness onset. No symptoms or risks identified at this time. Initial Sepsis Screen: Does the patient meet any 2 criteria? No. Patient's initial sepsis screen is negative. Does the patient have a suspected source of infection? No. Patient's initial sepsis screen is negative. Risk Assessment: Do you want to hurt yourself or someone else? Patient reports no desire to harm self or others. Onset of symptoms was March 25, 2020. 10:12 Method Of Arrival: Wheelchair ca1 10:12 Acuity: YOSSI 3 ca1 Triage Assessment: 10:20 General: Appears in no apparent distress. comfortable, obese, Behavior is cooperative, bp appropriate for age, anxious. Pain: Complains of pain in right leg and left leg. EENT: No deficits noted. Neuro: No deficits noted. Cardiovascular: No deficits noted. Respiratory: No deficits noted. GI: No signs and/or symptoms were reported involving the gastrointestinal system. : No signs and/or symptoms were reported regarding the genitourinary system. Derm: No deficits noted. Musculoskeletal: Swelling present in right leg and left leg. Historical: - Allergies: 10:19 PENICILLINS; ca1 - Home Meds: 10:19 tramadol 50 mg Oral tab 2 tabs every 8 hours [Active]; gabapentin 600 mg oral tab 1 tab ca1 3 times per day [Active]; Metformin 250 mg Oral 1 tab once daily [Active]; Iron CR Oral [Active]; Cipro Oral [Active]; Doxycycline Oral [Active]; - PMHx: 10:19 Cellulitis; Diabetes - NIDDM; Hypertension; Lymphadema; ca1 - PSHx: 10:19 Knee surgery; ; ca1 - Immunization history:: Adult Immunizations up to date. - Social history:: Smoking status: Patient reports the use of cigarette tobacco products, smokes one pack cigarettes per day. - Family history:: not pertinent. - Hospitalizations: : No recent hospitalization is reported. Screenin:20 Abuse screen: Denies threats or abuse. Denies injuries from another. Nutritional bp screening: No deficits noted. Tuberculosis screening: No symptoms or risk factors identified. Fall Risk No fall in past 12 months (0 pts). No secondary diagnosis (0 pts). No IV (0 pts). Ambulatory Aid- None/Bed Rest/Nurse Assist (0 pts). Gait- Normal/Bed Rest/Wheelchair (0 pts) Mental Status- Oriented to own ability (0 pts). Total Milner Fall Scale indicates No Risk (0-24 pts). Assessment: 10:20 General: SEE TRIAGE NOTE. bp 11:20 Reassessment: Patient appears in no apparent distress at this time. No changes from rb1 previously documented assessment. 12:15 Reassessment: LAB SPECIMEN OBTAINED BY PHLEBOTOMY. VS STABLE ON MONITOR. bp 13:00 Reassessment: Applied ABD pads and onofre wraps to bilateral lower legs. Pt. tolerated rb1 well. 13:05 Reassessment: Patient appears in no apparent distress at this time. Patient and/or rb1 family updated on plan of care and expected duration. Pain level reassessed. Patient is alert, oriented x 3, equal unlabored respirations, skin warm/dry/pink. Discharge pending due transportation. Vital Signs: 10:12 BP 132 / 59; Pulse 91; Resp 18 S; Temp 97.7(TE); Pulse Ox 100% on R/A; Weight 127.01 kg ca1 (R); Height 5 ft. 6 in. (167.64 cm) (R); Pain 8/10; 11:30 BP 144 / 79; Pulse 76; Resp 19; Pulse Ox 99% ; rb1 12:30 BP 143 / 81; Pulse 77; Resp 19; Pulse Ox 99% on R/A; rb1 10:12 Body Mass Index 45.19 (127.01 kg, 167.64 cm) ca1 ED Course: 10:08 Patient arrived in ED. as 10:16 Triage completed. ca1 10:19 Arm band placed on right wrist. ca1 10:20 Patient has correct armband on for positive identification. Bed in low position. Call bp light in reach. Side rails up X2. 10:30 Berto Spencer MD is Attending Physician. rn 10:42 Britany Allen, RN is Primary Nurse. rb1 11:05 Missed attempt(s): 22 gauge in left antecubital area. Bleeding controlled, band aid rb1 applied, catheter tip intact. 13:30 No provider procedures requiring assistance completed. IV discontinued, intact, rb1 bleeding controlled, No redness/swelling at site. Pressure dressing applied. Administered Medications: No medications were administered Outcome: 12:44 Discharge ordered by MD. rn 13:30 Patient left the ED. rb1 13:30 Discharged to home via wheelchair, with family. rb1 13:30 Condition: stable 13:30 Discharge instructions given to patient, Instructed on discharge instructions, follow up and referral plans. Demonstrated understanding of instructions, follow-up care, Prescriptions given X none Signatures: Alesha Bustamante Roman, MD MD rn Barber, Rebecca, RN RN rb1 Gordon Go RN RN bp Acob, Cheryl, RN RN ca1 Corrections: (The following items were deleted from the chart) 13:59 13:47 Patient left the ED. rb1 rb1
--- NOTE | 2020-03-25 12:46 | EDPHYS ---
Physician Documentation [facility] Name: Carrie Webb Age: 64 yrs Sex: Female : 1955 Arrival Date: 03/25/2020 Time: 10:08 Bed 2 Private MD: ED Physician Berto Spencer HPI: 03/25 10:46 This 64 yrs old Female presents to ER via Wheelchair with complaints of Leg rn Swelling. 10:46 Reports leg swelling since discharge, reports taken off her diuretic due to kidney rn problems, decreased ambulation due to swelling, is almost done with her abx. No fever. Feels like infection has improved but not swelling. No sob. . Onset: The symptoms/episode began/occurred at an unknown time. Severity of symptoms: At their worst the symptoms were moderate in the emergency department the symptoms are unchanged. The patient has experienced similar episodes in the past. The patient has been recently been admitted at [facility]. Historical: - Allergies: 10:19 PENICILLINS; ca1 - Home Meds: 10:19 tramadol 50 mg Oral tab 2 tabs every 8 hours [Active]; gabapentin 600 mg oral tab 1 tab ca1 3 times per day [Active]; Metformin 250 mg Oral 1 tab once daily [Active]; Iron CR Oral [Active]; Cipro Oral [Active]; Doxycycline Oral [Active]; - PMHx: 10:19 Cellulitis; Diabetes - NIDDM; Hypertension; Lymphadema; ca1 - PSHx: 10:19 Knee surgery; ; ca1 - Immunization history:: Adult Immunizations up to date. - Social history:: Smoking status: Patient reports the use of cigarette tobacco products, smokes one pack cigarettes per day. - Family history:: not pertinent. - Hospitalizations: : No recent hospitalization is reported. ROS: 10:46 Constitutional: Negative for fever, chills, and weight loss, Eyes: Negative for injury, rn pain, redness, and discharge, Cardiovascular: Negative for chest pain, palpitations Respiratory: Negative for shortness of breath, cough, wheezing, and pleuritic chest pain, Abdomen/GI: Negative for abdominal pain, nausea, vomiting, diarrhea, and constipation, MS/Extremity: + leg swelling Skin: + chronic skin changes of legs Neuro: + generalized weakness Exam: 10:46 Constitutional: This is a well developed, well nourished patient who is awake, alert, rn and in no acute distress. Head/Face: Normocephalic, atraumatic. Eyes: Periorbital areas with no swelling, redness, or edema. Cardiovascular: Regular rate and rhythm. No pulse deficits. Respiratory: No increased work of breathing, no retractions or nasal flaring. Skin: Warm, dry, + chronic skin changes of bilateral lower ext, no warmth or fluctuance MS/ Extremity: Pulses equal, no cyanosis. 2+ pitting edema bilateral lower ext Neuro: Awake and alert, GCS 15 Vital Signs: 10:12 BP 132 / 59; Pulse 91; Resp 18 S; Temp 97.7(TE); Pulse Ox 100% on R/A; Weight 127.01 kg ca1 (R); Height 5 ft. 6 in. (167.64 cm) (R); Pain 8/10; 11:30 BP 144 / 79; Pulse 76; Resp 19; Pulse Ox 99% ; rb1 12:30 BP 143 / 81; Pulse 77; Resp 19; Pulse Ox 99% on R/A; rb1 10:12 Body Mass Index 45.19 (127.01 kg, 167.64 cm) ca1 MDM: 10:30 Patient medically screened. rn 12:42 Differential Diagnosis lymphedema. Data reviewed: vital signs, nurses notes, lab test rn result(s), and as a result, I will discharge patient. Counseling: I had a detailed discussion with the patient and/or guardian regarding: the historical points, exam findings, and any diagnostic results supporting the discharge/admit diagnosis, lab results, the need for outpatient follow up, to return to the emergency department if symptoms worsen or persist or if there are any questions or concerns that arise at home. Special discussion: I discussed with the patient/guardian in detail that at this point there is no indication for admission to the hospital. It is understood, however, that if the symptoms persist or worsen the patient needs to return immediately for re-evaluation. Based on the history and exam findings, there is no indication for further emergent testing or inpatient evaluation. I discussed with the patient/guardian the need to see the primary care provider for further evaluation of the symptoms. ED course: Normal WBC, neg procal, normal renal function, no need for emergent admission, will dc home with instructions to restart her diuretics. . 03/25 10:39 Order name: CBC with Diff; Complete Time: 11:57 rn 03/25 10:39 Order name: Basic Metabolic Panel; Complete Time: 12:42 rn 03/25 10:39 Order name: IV Start; Complete Time: 11:30 rn 03/25 10:39 Order name: Procalcitonin; Complete Time: 12:42 rn 03/25 10:39 Order name: BNP; Complete Time: 12:42 rn Administered Medications: No medications were administered Disposition: 03/25/20 12:44 Discharged to Home. Impression: Lymphedema, not elsewhere classified. - Condition is Stable. - Discharge Instructions: Lymphedema. - Medication Reconciliation Form, Thank You Letter, Antibiotic Education, Prescription Opioid Use form. - Follow up: Private Physician; When: As needed; Reason: Recheck today's complaints, Re-evaluation by your physician. - Problem is new. - Symptoms have improved. Signatures: Dispatcher [employer] EDMS Berto Spencer MD MD rn Barber, Rebecca RN RN rb1 Kaylee Valderrama RN RN ca1 Corrections: (The following items were deleted from the chart) 13:47 12:44 03/25/2020 12:44 Discharged to Home. Impression: Lymphedema, not elsewhere rb1 classified. Condition is Stable. Forms are Medication Reconciliation Form, Thank You Letter, Antibiotic Education, Prescription Opioid Use. Follow up: Private Physician; When: As needed; Reason: Recheck today's complaints, Re-evaluation by your physician. Problem is new. Symptoms have improved. rn
[2020-03-25 14:11] VITALS: TEMP 97.7
[2020-03-25 14:13] VITALS: BP 144/79; O2SAT 99
== END 2020-03-25 13:47 | disposition home or self-care (01) ==
LOC: ER 10:06
DX: I89.0 Lymphedema, not elsewhere classified (principal); I10 Essential (primary) hypertension; E11.9 Type 2 diabetes mellitus without complications; F17.210 Nicotine dependence, cigarettes, uncomplicated; Z88.0 Allergy status to penicillin
CPT/HCPCS: 36415; 80048; 83880; 84145; 85025; 99282

== ENCOUNTER 2020-09-21 00:12 | Inpatient (IN) | payer OTHER ==
[~2020-09-21 00:12] MED LIST: EPHEDRINE SULF 50 MG/ML VIAL IV SCH
[2020-09-21 00:44] LABS: MPV 7.8 fL (7.6-11.3)
[2020-09-21] MEDS ORDERED: VANCOMYCIN 1 GM/VIAL ONE (00:54)
[2020-09-21] MEDS ORDERED: NA CHLORIDE 0.9% 500 ML ONE ×2 (00:54→04:24)
[2020-09-21] MEDS ORDERED: CLINDAMYCIN 600MG/D5W 600 MG/50 ML BAG IV ONE (00:54)
[2020-09-21] MEDS ORDERED: NA CHLORIDE 0.9% 250 ML ONE (00:54)
[2020-09-21 01:04] LABS: Absolute Lymphocytes (CBC) 1.1 K/uL (0.7-4.9); Basophils % 0.3 % (0-1.3); Hematocrit 36.1 % (36.0-45.0); Lymphocytes % 4.3 % (15.3-44.8); RBC Red Blood Cell Count 4.21 M/uL (3.86-4.86)
[2020-09-21 01:59] LABS: Blood Morphology Comment NOT SEEN (NOT SEEN); Platelet Estimate ADEQ
--- NOTE | 2020-09-21 02:58 | ER ---
Nurse's Notes [facility] Name: Carrie Webb Age: 65 yrs Sex: Female : 1955 Arrival Date: 09/21/2020 Time: 00:13 Bed 26 Private MD: Diagnosis: Osteomyelitis, unspecified;Pressure ulcer of sacral region, stage 4 Presentation: 09/21 00:18 Chief complaint: EMS states: PT reports with generalized weakness with signs of sepsis. jb4 98.9 oral, 94/45, 114, 97 RA, 16 RR. PT has a decubitus ulcer on her backside. Coronavirus screen: Client denies travel out of the [place] in the last 14 days. At this time, the client does not indicate any symptoms associated with coronavirus-19. Ebola Screen: No symptoms or risks identified at this time. Initial Sepsis Screen: Does the patient meet any 2 criteria? HR > 90 bpm. Yes Does the patient have a suspected source of infection? Yes: Skin breakdown/wound If YES to both, name of provider notified: Berto Spencer MD Risk Assessment: Do you want to hurt yourself or someone else? Patient reports no desire to harm self or others. Onset of symptoms was September 21, 2020. Transition of care: patient was not received from another setting of care. 00:18 Method Of Arrival: EMS: [facility] jb4 00:18 Acuity: YOSSI 3 jb4 Historical: - Allergies: 00:26 PENICILLINS; jb4 - Home Meds: 00:26 gabapentin 600 mg Oral tab 1 tab 3 times per day [Active]; Metformin 250 mg Oral 1 tab jb4 once daily [Active]; tramadol 50 mg Oral tab 2 tabs every 8 hours [Active]; - PMHx: 00:26 Cellulitis; Diabetes - NIDDM; Hypertension; Lymphadema; jb4 - PSHx: 00:26 Knee surgery; ; lump removed from left breast; jb4 - Immunization history:: Adult Immunizations up to date. - Social history:: Smoking status: Patient reports the use of cigarette tobacco products, smokes .75 packs per day. - Family history:: not pertinent. - Hospitalizations: : No recent hospitalization is reported. Screenin:27 Abuse screen: Denies threats or abuse. Nutritional screening: No deficits noted. jb4 Tuberculosis screening: No symptoms or risk factors identified. Fall Risk None identified. Assessment: 00:27 General: Appears in no apparent distress. uncomfortable, Behavior is calm, cooperative, jb4 appropriate for age. Pain: Complains of pain in sacrum, right calf, right heel and left calf Pain does not radiate. Pain currently is 9 out of 10 on a pain scale. Neuro: Level of Consciousness is awake, alert, obeys commands, Oriented to person, place, time, situation. Cardiovascular: Patient's skin is warm and dry. Respiratory: Airway is patent Respiratory effort is even, unlabored, Respiratory pattern is regular, symmetrical. GI: No signs and/or symptoms were reported involving the gastrointestinal system. : No signs and/or symptoms were reported regarding the genitourinary system. EENT: No signs and/or symptoms were reported regarding the EENT system. Derm: Skin is dry, Decubitus located on sacrum approximately 2.6 cm to 7.5 cm is unstageable. bed has eschar present. Derm: Decubitus located on bilateral Posterior lower extremity approximately 7.6 cm to 20 cm is stage III bed has granulation present. Derm: Decubitus located on right heel(s) approximately 1.5 cm to 2.5 cm is stage III bed has eschar present. Musculoskeletal: Circulation, motion, and sensation intact. Range of motion: intact in all extremities. 00:27 Derm: Decubitus located on Middle Back approximately 1.5 cm to 2.5 cm is stage II bed jb4 has granulation present. 01:01 Reassessment: PRovider notified of sudden increase in heart rate to 143, no new orders jb4 at this time. 01:30 Reassessment: Patient appears in no apparent distress at this time. Patient and/or jb4 family updated on plan of care and expected duration. Pain level reassessed. Patient is alert, oriented x 3, equal unlabored respirations, skin warm/dry/pink. 02:30 Reassessment: Patient appears in no apparent distress at this time. Patient and/or jb4 family updated on plan of care and expected duration. Pain level reassessed. Patient is alert, oriented x 3, equal unlabored respirations, skin warm/dry/pink. 03:00 Reassessment: Wound care performed, dressings applied to all noted decubitus ulcers. jb4 03:30 Reassessment: Patient appears in no apparent distress at this time. Patient and/or jb4 family updated on plan of care and expected duration. Pain level reassessed. Patient is alert, oriented x 3, equal unlabored respirations, skin warm/dry/pink. Vital Signs: 00:18 BP 151 / 65; Pulse 115; Resp 16; Temp 98.9; Pulse Ox 95% on R/A; Weight 99.79 kg (R); jb4 Height 5 ft. 7 in. (170.18 cm) (R); Pain 9/10; 00:30 BP 118 / 100; Pulse 143; Resp 19; Pulse Ox 93% on R/A; jb4 01:30 BP 106 / 87; Pulse 103; Resp 16; Pulse Ox 93% on R/A; jb4 00:18 Body Mass Index 34.46 (99.79 kg, 170.18 cm) jb4 ED Course: 00:13 Patient arrived in ED. cl3 00:16 Berto Spencer MD is Attending Physician. rn 00:18 Elder Luna, BERNADETTE is Primary Nurse. jb4 00:25 Triage completed. jb4 00:26 Arm band placed on right wrist. jb4 00:27 Patient has correct armband on for positive identification. Bed in low position. Call jb4 light in reach. Side rails up X 1. monitoring and evaluation advisor on. Pulse ox on. NIBP on. 00:27 Initial lab(s) drawn, by ED staff, sent to lab. Wound culture swab sent to lab. jb4 Inserted saline lock: 20 gauge in right antecubital area, using aseptic technique. Blood collected. 02:17 CT Pelvis w cont In Process Unspecified. EDMS 02:46 Sifuentes cath inserted, using sterile technique, 18 Fr., by ne, balloon inflated, to ea gravity drainage. 02:56 Yao Castellon DO is Hospitalizing Provider. rn 03:30 No provider procedures requiring assistance completed. Patient admitted, IV remains in jb4 place. 09:05 Primary Nurse role handed off by Elder Luna, RN dm5 Administered Medications: 00:56 Drug: NS 0.9% 500 ml Route: IV; Rate: bolus; Site: right antecubital; jb4 01:26 Follow up: Response: No adverse reaction; IV Status: Completed infusion; IV Intake: jb4 500ml 00:56 Drug: Clindamycin 600 mg Route: IVPB; Infused Over: 30 mins; Site: right antecubital; jb4 01:26 Follow up: Response: No adverse reaction; IV Status: Completed infusion; IV Intake: [id number] 01:29 Drug: vancoMYCIN 1 grams Route: IVPB; Infused Over: 2 hrs; Site: right antecubital; jb4 03:29 Follow up: Response: No adverse reaction; IV Status: Completed infusion; IV Intake: jb4 250ml 04:24 Drug: NS 0.9% 500 ml Route: IV; Rate: bolus; Site: left forearm; jb4 05:00 Follow up: Response: No adverse reaction; IV Status: Completed infusion; IV Intake: jb4 500ml 04:29 Drug: morphine 2 mg Route: IVP; Site: right antecubital; jb4 04:45 Follow up: Response: No adverse reaction; Pain is decreased jb4 Intake: 01:26 IV: 50ml; Total: 50ml. jb4 01:26 IV: 500ml; Total: 550ml. jb4 03:29 IV: 250ml; Total: 800ml. jb4 05:00 IV: 500ml; Total: 1300ml. jb4 Outcome: 02:57 Decision to Hospitalize by Provider. rn 03:30 Admitted to ER Hold. Please see [facility] for further documentation. jb4 03:30 Condition: stable 03:30 Discharge instructions given to patient, family, Instructed on the need for admit, Demonstrated understanding of instructions. 09:02 Patient left the ED. hb 09:33 Patient left the ED. hb Signatures: Dispatcher [facility] Debbie Dykes RN RN dm5 Berto Spencer MD MD rn Baxter, Heather, RN RN hb Bryson, James, RN RN jb4 Maria E Bell RN RN ea Lewis, Charde cl3 Corrections: (The following items were deleted from the chart) 07:54 00:27 Derm: Decubitus located on right heel(s) approximately 1.5 cm to 2.5 cm is stage jb4 III bed has eschar present jb4
--- NOTE | 2020-09-21 02:58 | EDPHYS ---
Physician Documentation [facility] Name: Carrie Webb Age: 65 yrs Sex: Female : 1955 Arrival Date: 09/21/2020 Time: 00:13 Bed 26 Private MD: ED Physician Berto Spencer HPI: 09/21 00:30 This 65 yrs old Female presents to ER via EMS with complaints of General rn Weakness, sacral wound. 00:30 The patient presents with cellulitis of the buttocks. Description: draining, rn erythematous. Onset: The symptoms/episode began/occurred at an unknown time. Possible cause(s): unknown. Associated signs and symptoms: Pertinent positives: drainage, erythema, Pertinent negatives: fever. Modifying factors: the symptoms are alleviated by nothing, the symptoms are aggravated by pressure, sitting, touching. Severity of symptoms: At their worst the symptoms were moderate, in the emergency department the symptoms are unchanged. The patient has experienced similar episodes in the past. The patient has not recently seen a physician. Reports generalized weakness, longstanding sacral decubitus ulcer, lays in bed and sits all day, reports over last week or so noticed increased drainage, generalized weakness. No fever. Does not see wound care. . Historical: - Allergies: 00:26 PENICILLINS; jb4 - Home Meds: 00:26 gabapentin 600 mg Oral tab 1 tab 3 times per day [Active]; Metformin 250 mg Oral 1 tab jb4 once daily [Active]; tramadol 50 mg Oral tab 2 tabs every 8 hours [Active]; - PMHx: 00:26 Cellulitis; Diabetes - NIDDM; Hypertension; Lymphadema; jb4 - PSHx: 00:26 Knee surgery; ; lump removed from left breast; jb4 - Immunization history:: Adult Immunizations up to date. - Social history:: Smoking status: Patient reports the use of cigarette tobacco products, smokes .75 packs per day. - Family history:: not pertinent. - Hospitalizations: : No recent hospitalization is reported. ROS: 00:30 Constitutional: Negative for fever, chills, and weight loss, Eyes: Negative for injury, rn pain, redness, and discharge, Neck: Negative for injury, pain, and swelling, Cardiovascular: Negative for chest pain, palpitations Respiratory: Negative for shortness of breath, cough, wheezing, and pleuritic chest pain, Abdomen/GI: Negative for abdominal pain, nausea, vomiting, diarrhea, and constipation, Back: Negative for injury and pain, MS/Extremity: Negative for injury and deformity, Skin: + skin breakdown with approx 5-6 cm deep sacral wound with foul smell and drainage. + surrounding erythema and discoloration surrounding wound on dependent areas. No fluctuance. Neuro: Negative for headache Exam: 00:30 Constitutional: This is a well developed, well nourished patient who is awake, alert, rn and in no acute distress. Head/Face: Normocephalic, atraumatic. ENT: dry MM Cardiovascular: tachycardic, regular Respiratory: No increased work of breathing, no retractions or nasal flaring. Abdomen/GI: Soft, non-tender MS/ Extremity: Pulses equal, no cyanosis. Neuro: Awake and alert, GCS 15, oriented to person, place, time, and situation. Cranial nerves II-XII grossly intact. Motor strength 4/5 in all extremities. Sensory grossly intact. 01:21 ECG was reviewed by the Attending Physician. rn Vital Signs: 00:18 BP 151 / 65; Pulse 115; Resp 16; Temp 98.9; Pulse Ox 95% on R/A; Weight 99.79 kg (R); jb4 Height 5 ft. 7 in. (170.18 cm) (R); Pain 9/10; 00:30 BP 118 / 100; Pulse 143; Resp 19; Pulse Ox 93% on R/A; jb4 01:30 BP 106 / 87; Pulse 103; Resp 16; Pulse Ox 93% on R/A; jb4 00:18 Body Mass Index 34.46 (99.79 kg, 170.18 cm) jb4 MDM: 00:16 Patient medically screened. rn 02:54 Differential diagnosis: cellulitis, osteomyelitis, sacral ulcer. Data reviewed: vital rn signs, nurses notes, lab test result(s), EKG, radiologic studies, CT scan, and as a result, I will admit patient. Counseling: I had a detailed discussion with the patient and/or guardian regarding: the historical points, exam findings, and any diagnostic results supporting the discharge/admit diagnosis, lab results, radiology results, the need for further work-up and treatment in the hospital. Response to treatment: the patient's symptoms have mildly improved after treatment, and as a result, I will admit patient. Admission orders: after a detailed discussion of the patient's condition and case, the admit orders are written by me. ED course: CT shows deep ulceration with possible osteomyelitis of coccyx, admitted to hospitalist service for IV abx, ID consultation. . 09/21 00:26 Order name: CBC with Diff rn 09/21 00:26 Order name: Basic Metabolic Panel; Complete Time: 34 rn 09/21 00:26 Order name: Lactate; Complete Time: rn 09/21 00:26 Order name: Procalcitonin rn 09/21 00:26 Order name: Sed Rate; Complete Time: 02: rn 09/21 00:26 Order name: CRP; Complete Time: rn 09/21 00:26 Order name: Blood Culture Adult (2) rn 09/21 00:26 Order name: Wound Culture 09/21 00:27 Order name: CBC with Automated Diff; Complete Time: 02:01 [facility] 09/21 01:10 Order name: Manual Differential; Complete Time: 02:01 EDTN 09/21 04:08 Order name: Lactate la1 09/21 04:14 Order name: Lactate Sepsis 2 HR Follow-up EDTN 09/21 05:01 Order name: Lactate EDTN 09/21 05:44 Order name: Glucose, Ancillary Testing EDTN 09/21 00:26 Order name: IV Start; Complete Time: 00:33 rn 09/21 00:26 Order name: Wound Care; Complete Time: 03:42 rn 09/21 00:26 Order name: CT Pelvis w cont rn 09/21 02:46 Order name: Sifuentes; Complete Time: 02:46 ea 09/21 04:03 Order name: XRAY Chest (1 view) rn 09/21 05:01 Order name: XRAY Chest (1 view) jb4 09/21 08:13 Order name: Glucose, Ancillary Testing EDTN 09/21 08:36 Order name: RAD EDTN 09/21 08:54 Order name: Lactate EDMS EC:21 Rate is 109 beats/min. Rhythm is regular. QRS [place] is Normal. HI interval is normal. rn QRS interval is normal. QT interval is normal. No Q waves. T waves are Normal. No ST changes noted. Clinical impression: Sinus tachycardia. Interpreted by me. Reviewed by me. Administered Medications: 00:56 Drug: NS 0.9% 500 ml Route: IV; Rate: bolus; Site: right antecubital; jb4 01:26 Follow up: Response: No adverse reaction; IV Status: Completed infusion; IV Intake: jb4 500ml 00:56 Drug: Clindamycin 600 mg Route: IVPB; Infused Over: 30 mins; Site: right antecubital; jb4 01:26 Follow up: Response: No adverse reaction; IV Status: Completed infusion; IV Intake: [id number] 01:29 Drug: vancoMYCIN 1 grams Route: IVPB; Infused Over: 2 hrs; Site: right antecubital; jb4 03:29 Follow up: Response: No adverse reaction; IV Status: Completed infusion; IV Intake: jb4 250ml 04:24 Drug: NS 0.9% 500 ml Route: IV; Rate: bolus; Site: left forearm; jb4 05:00 Follow up: Response: No adverse reaction; IV Status: Completed infusion; IV Intake: jb4 500ml 04:29 Drug: morphine 2 mg Route: IVP; Site: right antecubital; jb4 04:45 Follow up: Response: No adverse reaction; Pain is decreased jb4 Disposition: 09/21/20 02:57 Hospitalization ordered by Yao Castellon for Inpatient Admission. Preliminary diagnosis are Osteomyelitis, unspecified, Pressure ulcer of sacral region, stage 4. - Bed requested for Telemetry/MedSurg (Inpatient). - Status is Inpatient Admission. hb - Condition is Stable. - Problem is an ongoing problem. - Symptoms have worsened. Signatures: Dispatcher [employer] EDMS Court Lester Brenda RN RN bb Betro Spencer MD MD rn Attema, Lee, DIVISION OPERATIONS MANAGER-C DIVISION OPERATIONS MANAGER-Cla1 Avis Villagran RN RN hb Bryson, James, RN RN jb4 Maria E Bell RN RN ea Corrections: (The following items were deleted from the chart) 00:37 00:30 Constitutional: Negative for fever, chills, and weight loss, Eyes: Negative for rn injury, pain, redness, and discharge, Neck: Negative for injury, pain, and swelling, Cardiovascular: Negative for chest pain, palpitations, and edema, Respiratory: Negative for shortness of breath, cough, wheezing, and pleuritic chest pain, Abdomen/GI: Negative for abdominal pain, nausea, vomiting, diarrhea, and constipation, Back: Negative for injury and pain, MS/Extremity: Negative for injury and deformity, Skin: + skin breakdown with approx 5-6 cm deep sacral wound with foul smell and drainage. + surrounding erythema and discoloration surrounding wound on dependent areas. No fluctuance. Neuro: Negative for headache rn 04:15 02:57 Hospitalization Ordered by Yao Castellon DO for Inpatient Admission. Preliminary bb diagnosis is Osteomyelitis, unspecified; Pressure ulcer of sacral region, stage 4. Bed requested for Telemetry/MedSurg (Inpatient). Status is Inpatient Admission. Condition is Stable. Problem is an ongoing problem. Symptoms have worsened. rn 09: 04:15 09/21/2020 02:57 Hospitalization Ordered by Yao Castellon DO for Inpatient hb Admission. Preliminary diagnosis is Osteomyelitis, unspecified; Pressure ulcer of sacral region, stage 4. Bed requested for [facility] ER HOLD. Status is Inpatient Admission. Condition is Stable. Problem is an ongoing problem. Symptoms have worsened. bb : 09:02 09/21/2020 02:57 Hospitalization Ordered by Yao Castellon DO for Inpatient bd Admission. Preliminary diagnosis is Osteomyelitis, unspecified; Pressure ulcer of sacral region, stage 4. Bed requested for [facility] ER HOLD. Status is Inpatient Admission. Condition is Stable. Problem is an ongoing problem. Symptoms have worsened. hb 09:33 09:15 09/21/2020 02:57 Hospitalization Ordered by Yao Castellon DO for Inpatient hb Admission. Preliminary diagnosis is Osteomyelitis, unspecified; Pressure ulcer of sacral region, stage 4. Bed requested for Telemetry/MedSurg (Inpatient). Status is Inpatient Admission. Condition is Stable. Problem is an ongoing problem. Symptoms have worsened. bd 09:33 09:33 09/21/2020 02:57 Hospitalization Ordered by YaoShantel OTERO for Inpatient hb Admission. Preliminary diagnosis is Osteomyelitis, unspecified; Pressure ulcer of sacral region, stage 4. Bed requested for Telemetry/MedSurg (Inpatient). Status is Inpatient Admission. Condition is Stable. Problem is an ongoing problem. Symptoms have worsened. hb
[2020-09-21] MEDS ORDERED: MORPHINE 2 MG/ML SYR ONE (04:24)
--- NOTE | 2020-09-21 04:29 | P.HP ---
Certification for Inpatient Patient admitted to: Inpatient With expected LOS: >2 Midnights Patient will require the following post-hospital care: [facility] Practitioner: I am a practitioner with admitting privileges, knowledge of patient current condition, hospital course, and medical plan of care. Services: Services provided to patient in accordance with Admission requirements found in Title 42 Section 412.3 of the Code of Federal Regulations <DouglasvianeyHarry - Last Filed: 09/21/20 04:20> Patient will require the following post-hospital care: Other (Long-term acute care facility) Practitioner: I am a practitioner with admitting privileges, knowledge of patient current condition, hospital course, and medical plan of care. Services: Services provided to patient in accordance with Admission requirements found in Title 42 Section 412.3 of the Code of Federal Regulations <Yao Castellon - Last Filed: 09/21/20 09:03> Patient History Date of Service: 09/21/20 Primary Care Provider: Dr. Hodges, wound healing-Dr. Sheffield Reason for admission: Osteomyelitis History of Present Illness: 65-year-old female with history of diabetes mellitus type 2, neuropathy, lymphedema, obesity, tobacco abuse presents emergency department for low back pain, general weakness. Patient reports that she has been having problems with a wound on her lower back as well as pain for approximately the last 3 months. Patient reports that the pain has gotten worse in the course the last 2 days. Patient reports that she is supposed to follow wound healing for the other wounds that she has but she has been noncompliant with this. During her evaluation in the emergency department patient was found to have large 3 x 8 cm unstageable decubitus to the sacrum as well as stage III to the right heel and stage II to the posterior bilateral lower extremities. Initially patient was tachycardic, mildly hypotensive with systolic blood pressure in the 90s, could sepsis was called. Patient's lab work revealed elevated white blood cell count at 25.4, 2% bands, elevated ESR at 56 and elevated C-reactive protein at 111. Patient also mildly hyponatremic and hypokalemic with sodium 131 and potassium of 3. Mild renal insufficiency, creatinine 1.4, GFR 38. CT abdomen pelvis was performed which demonstrated deep sacrococcygeal ulceration with possible osteomyelitis involving the coccyx, no intrapelvic extension, no drainable abscess noted. Patient also noted to have severe bilateral hip osteoarthritis. ED provider wishes to admit patient for further evaluation and management. When I saw the patient in the emergency department she is awake, alert, oriented x3. Patient complaining of pain to her lower back. Patient's vital signs have improved, blood pressure stable, mildly tachycardic with heart rate around 100. Initial lactate was 2.3, this is decreased to 1.7. Patient be admitted for further evaluation and management. - Past Medical/Surgical History Diabetic: Yes -: Hypertension -: Diabetes mellitus type 2 -: COPD -: Neuropathy -: Sleep apnea -: PVD -: Atherosclerosis -: Osteoarthritis -: Tobacco abuse -: Left knee replacement -: Right knee surgery x2 -: Hysterectomy 2001 -: x2 -: Right breast lumpectomy - benign Psychosocial/ Personal History: Patient lives at home with her - Family History Mother -: Diabetes Father -: Heart disease Brother -: Heart disease - Social History Smoking Status: Heavy Tobacco smoker (>10 cigarettes/day) Counseled patient to stop smoking for: more than 10 minutes Smoking therapy provided: Yes Alcohol use: No CD- Drugs: No Caffeine use: Yes Place of Residence: Home <Harry Olivares - Last Filed: 09/21/20 04:20> Date of Service: 09/21/20 Home medications list reviewed: Yes <Yao Castellon - Last Filed: 09/21/20 09:03> Allergies Penicillins Allergy (Verified 01/16/19 01:48) Hives/Rash Home Medications: Gabapentin 600 mg PO TID 01/16/19 Metformin ER [Glucophage ER*] 500 mg PO DAILY 01/16/19 Tramadol HCl [Ultram] 100 mg PO TID 01/16/19 Docusate [Colace Cap*] 100 mg PO DAILY #30 cap 01/18/19 Ferrous Sulfate [Ferrous Sulfate*] 325 mg PO BID #30 tab 01/18/19 Cyanocobalamin [Vitamin B-12*] 1,000 mcg PO DAILY tab 03/14/20 Doxycycline Hyclate 100 mg PO BID #20 tablet. 03/14/20 Levofloxacin [Levaquin] 500 mg PO DAILY #10 tablet 03/14/20 Review of Systems Musculoskeletal: Back Pain Integumentary: Lesions, As per HPI <Harry Olivares - Last Filed: 09/21/20 04:20> Physical Examination - Physical Exam General: Alert, In no apparent distress HEENT: Atraumatic, PERRLA, Mucous membr. moist/pink Neck: Supple, 2+ carotid pulse no bruit, No LAD Respiratory: Clear to auscultation bilaterally, Normal air movement Cardiovascular: Regular rate/rhythm, Normal S1 S2 Gastrointestinal: Normal bowel sounds, No tenderness Musculoskeletal: No tenderness Integumentary: Skin breakdown, Skin lesion, Tenderness/swelling, Erythema, Pressure ulcer Neurological: Normal speech, Normal strength at 5/5 x4 extr, Normal tone, Normal affect - Studies Laboratory Data (last 24 hrs) 09/21/20 00:25: Sodium 131 L, Potassium 3.0 L, BUN 12, Creatinine 1.40 H, Glucose 131 H 09/21/20 00:25: WBC 25.4 H*, Hgb 11.7 L, Hct 36.1, Plt Count 184 <Harry Olivares - Last Filed: 09/21/20 04:20> - Studies Laboratory Data (last 24 hrs) 09/21/20 00:25: Sodium 131 L, Potassium 3.0 L, BUN 12, Creatinine 1.40 H, Glucose 131 H 09/21/20 00:25: WBC 25.4 H*, Hgb 11.7 L, Hct 36.1, Plt Count 184 <Yao Castellon - Last Filed: 09/21/20 09:03> Assessment and Plan - Plan Assessment Large unstageable sacral decubitus ulcer with suspected osteomyelitis of the coccyx Stage III pressure ulcers of the lumbar spine and right heel in addition to multiple areas of skin breakdown to posterior lower extremity Diabetes mellitus type 2 Hypertension COPD Obesity Tobacco abuse Plan Large unstageable sacral decubitus ulcer with suspected osteomyelitis of the coccyx: Continue with vancomycin and clindamycin at this time. Consult General Surgery, Infectious Disease, dietitian. NPO at this time until case is discussed with General Surgery. Repeat lactate 1.7, continue with IV fluids, patient does not appear septic at this time. Wound healing consult in place. PICC line order and social work consult in place for likely needed long-term acute care. Appreciate further input from specialist. Stage III pressure ulcers of the lumbar spine and right heel in addition to multiple areas of skin breakdown to posterior lower extremity: Continue as above. Diabetes mellitus type 2: A.c. HS Accu-Cheks scale insulin therapy. A1c with morning labs. Hypertension: Obtain and continue home medications COPD: Obtain and continue home medications Obesity: Counseled on need for lifestyle and dietary changes. Tobacco abuse: I just need for tobacco cessation in detail for greater than 10 min in regard to wound healing. Discharge Plan: LTAC Plan to discharge in: Greater than 2 days - Advance Directives Does patient have a Living Will: No Does patient have a Durable POA for Healthcare: No - Code Status/Comfort Care Code Status Assessed: Yes (full) Critical Care: No Time Spent Managing Pts Care (In Minutes): 55 <Harry Olivares - Last Filed: 09/21/20 04:20> - Plan Case discussed in detail with nurse practitioner. Agree with evaluation, assessment and plan of care. Continue antibiotic therapy. Will consult infectious disease and surgery. Will keep the patient NPO in preparation for possible debridement. Patient with osteomyelitis. Patient will need PICC line and long-term IV antibiotic therapy. Await recommendations by infectious disease. Patient would benefit with long-term acute care facility placement. Will contact social service to help arrange. Patient with chronic renal disease. Will consult Nephrology. Patient agreeable to plan of care. Please see progress note for details. <Yao Castellon - Last Filed: 09/21/20 09:03>
[2020-09-21] MEDS ORDERED: VANCOMYCIN/NS 1 gm 1 GM/250 ML BAG IVPB SCH (04:48)
[2020-09-21] MEDS ORDERED: ACETAMINOPHEN 500 MG TAB PO PRN (04:48)
[2020-09-21] MEDS ORDERED: NA CHLORIDE 0.9% 1,000 ML IV SCH (05:00)
[2020-09-21 05:23] VITALS: BMI 37.0
[2020-09-21] MEDS ORDERED: NA CHLORIDE 0.9% 1,000 ML ONE ×2 (05:46→09:57)
[2020-09-21] MEDS ORDERED: VANCOMYCIN 2 GM in NA CHLORIDE 0.9% 500 ML IVPB SCH (06:00)
[2020-09-21] MEDS ORDERED: NA CHLORIDE 0.9% 1,000 ML IV ONE (06:25)
[2020-09-21] MEDS: NA CHLORIDE 0.9% 1,000 ML IV SCH ×3 (06:29→23:38)
[2020-09-21] MEDS: INSULIN -REGULAR HUMAN 50 UNIT/0.5 ML ML SQ SCH ×4 (07:30→21:00)
--- NOTE | 2020-09-21 08:36 | RAD REPORT ---
EXAM DESCRIPTION: RAD - Chest Single View - 09/21/2020 5:31 am CLINICAL HISTORY: sepsis Chest pain. COMPARISON: Chest Single View dated 03/12/2020; Chest Single View dated 01/15/2019; Chest Single View da nick 06/04/2018; Chest Single View dated 06/03/2018 FINDINGS: Portable technique limits examination quality. The lungs are grossly clear. The heart is normal in size. No displaced fractures. IMPRESSION: No acute intrathoracic process suspected.
[2020-09-21] MEDS ORDERED: VANCOMYCIN/NS 1 gm 1 GM/250 ML BAG IVPB ONE (09:00)
[2020-09-21] MEDS ORDERED: INFLUENZA VACCINE (for 3y+) 0.5 ML DOSE IMVAC ONE (09:00)
[2020-09-21] MEDS ORDERED: CLINDAMYCIN INJ 600 MG in NA CHLORIDE 0.9% 50 ML IV SCH (09:00)
[2020-09-21] MEDS: NICOTINE 21 MG/PAT TD SCH (09:00)
--- NOTE | 2020-09-21 09:09 | P.PN ---
Subjective Date of Service: 09/21/20 Primary Care Provider: Dr. Hodges, wound healing-Dr. Sheffield Chief Complaint: Osteomyelitis Subjective: Other (Patient without pain at this Blood pressure slightly low. IV fluid bolus given.) Physical Examination - Physical Exam General: Alert, In no apparent distress, Oriented x3, Cooperative HEENT: Atraumatic Neck: Supple Respiratory: Clear to auscultation bilaterally, Normal air movement Cardiovascular: Normal pulses, Regular rate/rhythm Gastrointestinal: Normal bowel sounds, Soft and benign, Non-distended Musculoskeletal: Other (I was not able to visualize the coccyx osteomyelitis.) Integumentary: Other (No significant extremity noted.) Neurological: Normal speech, Normal strength at 5/5 x4 extr, Normal tone, Normal affect - Studies Laboratory Data (last 24 hrs) 09/21/20 00:25: Sodium 131 L, Potassium 3.0 L, BUN 12, Creatinine 1.40 H, Glucose 131 H 09/21/20 00:25: WBC 25.4 H*, Hgb 11.7 L, Hct 36.1, Plt Count 184 Medications List Reviewed: Yes Assessment & Plan Discharge Plan: LTAC Plan to discharge in: Greater than 2 days Physician Review Additional Text: Impression: Large unstageable sacral decubitus ulcer with osteomyelitis of the coccyx Stage III pressure ulcers of the lumbar spine and right heel in addition to multiple areas of skin breakdown to posterior lower extremity Acute on chronic renal disease stage III with hyponatremia, hypokalemia likely dehydration Diabetes mellitus type 2 Hypertension COPD Obesity BMI 37 Mild malnutrition Tobacco abuse Plan Large unstageable sacral decubitus ulcer with osteomyelitis of the coccyx: Patient does not appear septic at this time. Will give IV fluid bolus and increase fluids. Pro calcitonin negative. Lactic acid now normal. Will continue to monitor closely. Will adjust IV antibiotics to Levaquin and vancomycin. Pharmacy to adjust and monitor. Case discussed with surgery. Will keep the patient NPO in preparation for possible debridement. Will discuss further with infectious disease for further recommendation. Will order PICC line as the patient will likely require long-term IV antibiotic therapy. Will consult social media marketing specialist in preparation for possible long-term acute care facility placement. Patient in agreement with current plan of care. Will monitor closely. Await further recommendations. Stage III pressure ulcers of the lumbar spine and right heel in addition to multiple areas of skin breakdown to posterior lower extremity: Continue with infectious disease and wound care recommendations. Acute on chronic renal disease stage III with hyponatremia, hypokalemia likely dehydration: Patient appears dehydrated. Patient given initial IV fluid bolus in the ER. Will give another fluid bolus and increase IV fluids. Will continue monitor closely. Electrolyte protocol in place. Await further recommendations from nephrology. Diabetes mellitus type 2: Will check A1c. Accu-Cheks and sliding scale in place. Hypertension: Hold blood pressure medication at this time. Obtain and verify home medication. COPD: Will provide medication. Maintain sats above 93%. Obesity BMI 37: Will address lifestyle modification education. Mild malnutrition: Address lifestyle modification education. Will consult dietary to address daily nutrition Tobacco abuse: Patient may require nicotine patch. At this time she does not require it. Tobacco cessation addressed in detail. Time Spent Managing Pts Care (In Minutes): 55
[2020-09-21] MEDS ORDERED: ALBUTEROL INHALER 60 PUFF/8 GM IH PRN (09:21)
--- NOTE | 2020-09-21 09:34 | PREOPCON ---
Date of Consultation: 09/21/2020 Reason: Infected decubitus ulcers on the back, sacrum and posterior leg with sepsis. History Of Present Illness: The patient is a 65-year-old female who presents to the emergency room w ith pain in the lower back and sacrum that has gotten worse. The ulcer started about 3 months ago bu t the pain got worse over the last few days. She was not feeling well. She had been seen regarding this point in a previous admission approximately 6 months ago, [facility], which she did not, and then she had sepsis and she was started on antibiotics and re suscitation. She is doing much better and Surgery was consulted for possible debridement. She is aw richard and alert. Denies any fever or chills at this time. No sore throat, runny nose, cough, headache s, or dizziness. No chest pain. Review of Systems: Otherwise unremarkable. Past Medical History: Significant for hypertension, diabetes type 2, neuropathy, lymphedema, sleep a pnea, peripheral vascular disease. Past Surgical History: Left knee replacement, right knee surgery x2, hysterectomy, , right breast lumpectomy. Allergies: INCLUDE PENICILLIN, RASH. Social History: Patient does smoke and has been counseled. Does not drink alcohol. Family History: Significant for diabetes and heart disease. Physical Examination: Vital Signs: Currently are stable. She is currently afebrile. General: She is awake, alert, and oriented x3. Head and Neck: No masses. Chest: Clear. Heart: S1, S2. Abdomen: Soft. Extremities: Neurovascularly intact. Diminished dorsalis pedis and posterior tibial pulses. There is lymphedema present in both lower extremity with wrinkling of the skin and leathering of the skin w ith posterior leg both of them have a partial thickness wound approximately 10 x 5 cm each and then o n her sacrum, she has a 3 x 8 cm decubitus with moderate amount of fibrin and necrotic tissue present with foul odor and she also has a wound on her back which is a smaller about 2 x 3 cm, and it appear s to be either stage III or a deep stage II. There is no surrounding erythema, warmth or edema. Laboratory Data: Reviewed. She has leukocytosis. White count is 25.4. Her lactic acid was ___ to 1.0. Procalcitonin is 0.15. She had a CT of the pelvis, which showed possible early osteomye litis of the coccyx. Assessment: A 65-year-old female with multiple medical problems with infected decubitus on her sacru m, back, posterior leg. Recommendations: Continue IV antibiotics, hydration, and resuscitation and that is in progress. The patient needs surgical debridement of all the wounds, which will be done today. Patient understands the risks, benefits, and alternatives and agrees to procedure. After which patient will need a PICC line for long-term IV antibiotics and also an LTAC referral for wound care and IV antibiotics. Plan of care discussed with the primary care team. ARI/DEE Voice ID: [id number] Report ID: [id number]
[2020-09-21] MEDS: Levofloxacin500mg IV 500 MG/100 ML BAG IV SCH (09:51)
[2020-09-21] MEDS ORDERED: LIDOCAINE 2% MPF 5 ML VIAL ONE (10:27)
[2020-09-21] MEDS ORDERED: FENTANYL CITR 100 MCG/2 ML ONE (10:27)
[2020-09-21] MEDS ORDERED: MIDAZOLAM HCL 2 MG/2 ML INJ ONE (10:27)
[2020-09-21] MEDS ORDERED: propofoL 200 MG/20 ML VIAL IV ONE (10:27)
[2020-09-21] MEDS ORDERED: ONDANSETRON 4 MG/2 ML VIAL ONE ×2 (10:27→12:29)
[2020-09-21] MEDS ORDERED: dexAMETHasone 4 MG/ML VIAL ONE (10:51)
[2020-09-21] MEDS ORDERED: SILVER SULFADIAZINE 1% 50 GM TOP ONE (11:08)
--- NOTE | 2020-09-21 11:31 | P.OP ---
Airframe Design Engineer: Dixon SIGALA Preoperative diagnosis: Infected wounds Back, Sacrum and Posterior legs Postoperative diagnosis: same Primary procedure: Debrdement of Back, Sacrum and Posterior legs Infected wounds Anesthesia: General Estimated blood loss: Minimal Specimen: C&S Findings: as above Complications: None Transferred to: Recovery Room Condition: Good
[2020-09-21] MEDS: COLLAGENASE 30 GM OINTMENT TOP ONE ×2 (11:40→12:05)
[2020-09-21] MEDS ORDERED: KETOROLAC 30 MG/ML INJ ONE (11:43)
[2020-09-21] MEDS: HYDROMORPHONE HCL 1 MG/ML INJ ONE ×4 (12:07→12:54)
--- NOTE | 2020-09-21 12:10 | OP ---
Date of Procedure: 09/21/2020 Surgeon: Darius Sheffield MD Conference Assistant: JOVON Herman. Preoperative Diagnosis: Infected wound of the sacrum, back and posterior legs, both legs. Postoperative Diagnosis: Infected wound of the sacrum, back and posterior legs, both legs. Procedure: 1.Debridement of sacral wound 8 x 10 cm to subcutaneous tissue, muscle and bone. 2.Back wound 3 x 2 cm to subcutaneous tissue. 3.Right posterior leg to subcutaneous tissue 10 x 5 cm. 4.Left posterior leg to subcutaneous tissue 10 x 5 cm. Estimated Blood Loss: Minimal. Specimens: Infected wound for cultures. Findings: As above. Anesthesia: General. Complications: None. The patient tolerated the procedure in stable condition, taken to Recovery in good general condition. Procedure In Detail: Patient was brought to the OR and placed in supine position and general anesthe giulia begun. Patient was placed in the left lateral position, prepped and draped in usual sterile fash ion. Then scissors and curette were used to debride everything down to the bone on the sacrum 8 x 10 cm, and there was muscle and necrotic tissue. The coccyx and the sacrum bone were easily palpable. There was infected tissue deeper to that and however I felt uncomfortable in debriding any further a ggressively. So all of the loose fibrin was debrided down to the bone level and then wound was irrig ated. Bleeding was controlled with cautery. Collagenase dressing was applied on the back. There wa s a 3 x 2 cm with fibrin all over down to the subcutaneous tissue and this was debrided with a curett e 3 x 2 cm, and then posterior leg, she had a moderate amount of fibrin on both posterior legs that w ere debrided with curette 10 x 5 cm on each side to the subcutaneous tissue. Wound was irrigated. B leeding was controlled with cautery and then Silvadene dressing on the leg and collagenase dressing o n the back and sacrum was not utilized. Sterile dressing was applied. Patient was awakened and take n to Recovery in good general condition. /MODL Voice ID: [id number] Report ID: [id number]
[2020-09-21] MEDS ORDERED: POTASSIUM CL SA 10 MEQ TAB PO ONE ×2 (12:26→21:00)
[2020-09-21] MEDS ORDERED: MEPERIDINE HCL 25 MG/ML SYR ONE (12:37)
[2020-09-21] MEDS: TRAMADOL HCL 50 MG TAB PO PRN ×2 (13:27→21:57)
--- NOTE | 2020-09-21 13:31 | RAD REPORT ---
CLINICAL HISTORY: Deep sacral wound. COMPARISON: CT abdomen and pelvis without contrast 05/04/2018 TECHNIQUE: Axial enhanced CT imaging of the pelvis. Reformatted coronal and sagittal images reviewed . Examination was performed according to our departmental dose-optimization program, which includes aut omated exposure control, adjustment of the mA and/or kV according to patient size and/or use of itera tive reconstruction technique. FINDINGS: RETROPERITONEAL VESSELS/NODES: There is significant atherosclerosis within the abdominal a charles distally and proximal iliac vessels. Normal caliber inferior vena cava. There are enlarged left iliac chain lymph nodes. Enlarged left distal periaortic node at the aortic bifurcation is 4.1 x 1.6 x 1.7 cm. Additional large left iliac nodes proximal to the left inguinal canal measuring up to 2.6 x 2.1 x 1.9 cm. BOWEL: Included small bowel loops appear normal. Mild sigmoid colon diverticulosis. No diverticulitis . Normal appendix in the right lower quadrant. MESENTERY/PERITONEUM: No adenopathy. There is no ascites. BLADDER: The bladder is moderately distended. No filling defect. GENITAL ORGANS: Uterus is surgically absent. PERITONEUM: No pelvic free fluid. BONES AND SOFT TISSUES: There is a deep ulceration adjacent to the tip of the coccyx which extends to the coccyx. There is no sacrococcygeal fracture. There is a very diminutive appearance of the tip of the coccyx with possible erosion along the posterior margin of the coccyx. There is no intrapelvic e xtension. There is adjacent subcutaneous edema. There is no drainable fluid collection. There is khris re osteoarthritis of the right and left hip with loss of the joint spaces. There is deformity of the right and left femoral head which may be sequela of avascular necrosis. There is chronic bony remodel ing of the right and left acetabulum. There are sclerotic changes with subchondral cystic changes wit hin the right and left femoral head and acetabulum. No fracture within the remaining bony pelvis. IMPRESSION: 1. Deep sacrococcygeal ulceration with possible osteomyelitis involving the coccyx. No i ntrapelvic extension. No drainable abscess. 2. Mild colonic diverticulosis without diverticulitis. 3. Mild left distal aortic, left iliac, and left pelvic sidewall lymphadenopathy.. X-rays 4. Severe bilateral hip osteoarthritis may be sequela of femoral head avascular necrosis. Electronically signed by: Rebeca Naranjo DO 09/21/2020 2:47 AM TV HOST Due to temporary technical issues with the PACS/Fluency reporting system, reports are being signed by the in house radiologists without review as a courtesy to insure prompt reporting. The interpreting radiologist is fully responsible for the content of the report.
--- NOTE | 2020-09-21 16:28 | RAD REPORT ---
EXAM DESCRIPTION: US - Renal Ultrasound-Complete - 09/21/2020 4:04 pm CLINICAL HISTORY: . Acute and chronic renal insufficiency COMPARISON: 2018 FINDINGS: The right kidney measures 9 cm with a normal echotexture. The left kidney measures 10 cm with a normal echotexture. Hydronephrosis is not seen. Sifuentes catheter decompresses the bladder limiting evaluation IMPRESSION: Unremarkable renal ultrasound.
[2020-09-21 19:26] LABS: Uric Acid 4.8 mg/dL (2.6-6.0)
[2020-09-21] MEDS: DULERA 100/5 (MOMETASONE/FORMOTEROL) INHALER IH SCH ×2 (21:00→21:58)
[2020-09-22 05:16] LABS: Absolute Lymphocytes (CBC) 0.8 K/uL (0.7-4.9); Basophils % 0.1 % (0-1.3); Hematocrit 29.2 % (36.0-45.0); Lymphocytes % 7.1 % (15.3-44.8); MPV 7.9 fL (7.6-11.3); RBC Red Blood Cell Count 3.38 M/uL (3.86-4.86)
[2020-09-22 05:46] LABS: Ferritin 183.6 ng/mL (8-388); Magnesium 1.7 mg/dL (1.8-2.4); Potassium 3.7 mmol/L (3.5-5.1); Thyroid Stimulating Hormone 0.817 uIU/mL (0.360-3.740)
[2020-09-22] MEDS: Levofloxacin500mg IV 500 MG/100 ML BAG IV SCH (06:02)
[2020-09-22] MEDS: TRAMADOL HCL 50 MG TAB PO PRN ×2 (06:02→17:07)
[2020-09-22] MEDS: NA CHLORIDE 0.9% 1,000 ML IV SCH (06:02)
[2020-09-22] MEDS: INSULIN -REGULAR HUMAN 50 UNIT/0.5 ML ML SQ SCH ×4 (07:30→20:02)
[2020-09-22] MEDS ORDERED: MAGNESIUM SULFATE 1 gm IVPB 1 GM/100 ML BAG IV ONE ×2 (07:30→10:27)
[2020-09-22] MEDS ORDERED: POTASSIUM CL SA 10 MEQ TAB PO ONE (07:30)
[2020-09-22] MEDS: DULERA 100/5 (MOMETASONE/FORMOTEROL) INHALER IH SCH ×2 (09:00→20:02)
[2020-09-22] MEDS: NICOTINE 21 MG/PAT TD SCH (09:00)
[2020-09-22] MEDS: COLLAGENASE 30 GM OINTMENT TOP SCH (09:00)
--- NOTE | 2020-09-22 09:16 | P.PN ---
Subjective Date of Service: 09/22/20 Primary Care Provider: Dr. Hodges, wound healing-Dr. Sheffield Chief Complaint: Osteomyelitis Subjective: Improving, Doing well Physical Examination - Vital Signs Temperature: 96.9 F Blood Pressure: 108/56 Pulse: 84 Respirations: 16 Pulse Ox (%): 98 - Physical Exam General: Alert, In no apparent distress, Oriented x3, Cooperative HEENT: Atraumatic Neck: Supple Respiratory: Clear to auscultation bilaterally, Normal air movement Cardiovascular: Normal pulses, Regular rate/rhythm Gastrointestinal: Normal bowel sounds, No tenderness, No masses, No rebound, No guarding Integumentary: Other (Coccyx could not be visualized. No significant edema to the lower extremities.) Neurological: Normal speech, Normal strength at 5/5 x4 extr, Normal tone, Normal affect - Studies Microbiology Data (last 24 hrs): 09/21/20 00:25 Wound - Sacral Gram Stain - Final Medications List Reviewed: Yes Assessment & Plan Discharge Plan: LTAC Plan to discharge in: 48 Hours Physician Review Additional Text: Impression: Large unstageable sacral decubitus ulcer with osteomyelitis of the coccyx Stage III pressure ulcers of the lumbar spine and right heel in addition to multiple areas of skin breakdown to posterior lower extremity Acute on chronic renal disease stage III with hyponatremia, hypokalemia likely dehydration Diabetes mellitus type 2 Hypertension COPD Obesity BMI 37 Mild malnutrition Tobacco abuse Anemia of chronic disease with iron deficiency Plan Large unstageable sacral decubitus ulcer with osteomyelitis of the coccyx status post debridement of back, sacrum and posterior leg: Patient had debridement yesterday by surgery. Patient overall improved. Continue IV antibiotic therapy. PICC line was placed last night. Continue with current wound care. Case discussed with infectious disease. Infectious Disease recommends transfer to long-term acute care facility to continue aggressive wound care and long-term IV antibiotic therapy. Will discuss with social problems specialist. This was discussed in detail with the patient who agrees with plan of care. Will continue monitor closely. Patient stable for discharge to long-term acute care facility if approved. Stage III pressure ulcers of the lumbar spine and right heel in addition to multiple areas of skin breakdown to posterior lower extremity: Continue with infectious disease and wound care recommendations. Acute on chronic renal disease stage III with hyponatremia, hypokalemia likely dehydration: Patient better hydrated. Continue IV fluids. Will monitor closely. Will discuss further with nephrology. Continue with their recommendations. Diabetes mellitus type 2: A1c 5.3. diabetes well controlled. Accu-Cheks and sliding scale in place. Hypertension: Continue to hold blood pressure medication. COPD: Will provide medication. Maintain sats above 93%. Obesity BMI 37: Will address lifestyle modification education. Mild malnutrition: Address lifestyle modification education. Await recommendations by dietary Tobacco abuse: Patient may require nicotine patch. At this time she does not require it. Tobacco cessation addressed in detail. Anemia of chronic disease with iron deficiency: Will continue with iron supplementation. Will monitor this closely. Time Spent Managing Pts Care (In Minutes): 55
--- NOTE | 2020-09-22 10:34 | P.CNS ---
Date of Consult: 09/22/20 Reason for Consult: FINN , hyponatremia, hypocalcemia Primary Care Provider: Dr. Hodges, wound healing-Dr. Sheffield Chief Complaint: Osteomyelitis History of Present Illness: A 65-year-old woman with history of diabetes mellitus type 2, neuropathy,Morbid obesity, lymphedema, tobacco abuse, OA with knee replacement, have limited mobility Pt presneted with backpain found to have large sacral decubiti wound, Pt was hypotesnive and tachycardic , WBC 25K , Cr 1.4, NA 131 pt now S/P debridement denied nausea, vomiting, chest pain, palpitation, diarrhea or vomiting Physical exam general: AAOX3, NAD , obese Neck; Supple, No elevated JVD hear: RRR, normal S1,2 no murmur or rub Chest: CTAB, no rlaes or wheezes Abdomen: Soft , Nt Extremities chronic skin changes, no edema, B/L leg dressing A/P FINN due to dehydration , sepsis and ATN resolved US no hydro will dc IVF Hyponatremia resolved Hypocalcemia an hypomagnesemia will replace DM as per primary team HTN controlled will cont to hold BP meds Sepsis boyd to sacral decubiti wound S/P debridment Cont ABx monitor vanco level can be discharged from nephrology point of view Allergies Penicillins Allergy (Verified 01/16/19 01:48) Hives/Rash Home Medications: Gabapentin 600 mg PO TID 01/16/19 Metformin ER [Glucophage ER*] 250 mg PO DAILY 01/16/19 Tramadol HCl [Ultram] 50 mg PO TID 01/16/19 - Past Medical/Surgical History Diabetic: Yes -: Hypertension -: Diabetes mellitus type 2 -: COPD -: Neuropathy -: Sleep apnea -: PVD -: Atherosclerosis -: Osteoarthritis -: Tobacco abuse -: Left knee replacement -: Right knee surgery x2 -: Hysterectomy 2001 -: x2 -: Right breast lumpectomy - benign Psychosocial/ Personal History: Patient lives at home with her - Family History Mother Medical History: Diabetes Father Medical History: Heart disease Brother Medical History: Heart disease - Social History Smoking Status: Current every day smoker Alcohol use: No CD- Drugs: No Caffeine use: Yes Place of Residence: Home Physical Examination Temp Pulse Resp BP Pulse Ox 96.9 F 84 16 108/56 L 98 09/22/20 09:16 09/22/20 09:16 09/22/20 09:16 09/22/20 09:16 09/22/20 09:16
[2020-09-22] MEDS ORDERED: CALCIUM GLUC 10% INJ 9.3 MEQ in NA CHLORIDE 0.9% 100 ML IV ONE (11:00)
[2020-09-22] MEDS: FOLIC ACID 1 MG TABLET PO SCH (11:45)
[2020-09-22] MEDS: VANCOMYCIN 2 GM in NA CHLORIDE 0.9% 500 ML IVPB SCH (11:45)
--- NOTE | 2020-09-22 13:20 | PN ---
Date of Progress Note: 09/22/2020 Subjective: Patient is awake and alert, no new complaint. Objective: Vital Signs: Stable, afebrile. Laboratory Data: Reviewed. White count has normalized. Dressings are clean dry intact. Assessment: Status post debridement of sacral, back, and bilateral lower extremity wounds. Recommendation: Wound care is ordered. IV antibiotics. Check cultures. Adjust antibiotics accordi ngly and discharge planning either LTAC or SNF. /MODL Voice ID: [id number] Report ID: [id number]
[2020-09-22] MEDS: SILVER SULFADIAZINE 1% 50 GM TOP SCH (17:07)
[2020-09-22] MEDS: HYDROCODONE/APAP 7.5/325 MG TAB PO PRN (22:40)
[2020-09-22] MEDS: JUVEN PACKET PO SCH (22:41)
[2020-09-22] MEDS: FERROUS SULFATE 325 MG TAB PO SCH (22:41)
[2020-09-22] MEDS: MORPHINE 2 MG/ML SYR IV PRN (23:47)
[2020-09-23] MEDS: Levofloxacin500mg IV 500 MG/100 ML BAG IV SCH (06:18)
[2020-09-23 06:27] LABS: Absolute Lymphocytes (CBC) 1.5 K/uL (0.7-4.9); Basophils % 0.2 % (0-1.3); Lymphocytes % 16.4 % (15.3-44.8); MPV 7.6 fL (7.6-11.3); RBC Red Blood Cell Count 3.27 M/uL (3.86-4.86)
[2020-09-23 06:53] LABS: Magnesium 1.9 mg/dL (1.8-2.4); Potassium 3.7 mmol/L (3.5-5.1)
[2020-09-23] MEDS: INSULIN -REGULAR HUMAN 50 UNIT/0.5 ML ML SQ SCH ×4 (07:30→20:35)
[2020-09-23] MEDS ORDERED: POTASSIUM 25 MEQ EFFERV TAB PO ONE (07:59)
[2020-09-23] MEDS: COLLAGENASE 30 GM OINTMENT TOP SCH (09:00)
[2020-09-23] MEDS: NICOTINE 21 MG/PAT TD SCH (09:00)
[2020-09-23] MEDS: JUVEN PACKET PO SCH ×2 (09:00→20:35)
[2020-09-23] MEDS: VANCOMYCIN 2 GM in NA CHLORIDE 0.9% 500 ML IVPB SCH (09:00)
[2020-09-23] MEDS: DULERA 100/5 (MOMETASONE/FORMOTEROL) INHALER IH SCH ×2 (09:00→20:36)
[2020-09-23] MEDS: SILVER SULFADIAZINE 1% 50 GM TOP SCH (09:00)
[2020-09-23] MEDS: FOLIC ACID 1 MG TABLET PO SCH (09:11)
[2020-09-23] MEDS: FERROUS SULFATE 325 MG TAB PO SCH ×2 (09:11→20:35)
[2020-09-23] MEDS: CYANOCOBALAMIN 1,000 MCG TAB PO SCH (09:11)
[2020-09-23] MEDS ORDERED: VANCOMYCIN 2 GM in NA CHLORIDE 0.9% 500 ML IVPB SCH (10:00)
--- NOTE | 2020-09-23 10:00 | P.PN ---
Subjective Date of Service: 09/23/20 Primary Care Provider: Dr. Hodges, wound healing-Dr. Sheffield Chief Complaint: Osteomyelitis Subjective: Doing well Physical Examination - Vital Signs Temperature: 99.3 F Blood Pressure: 117/55 Pulse: 86 Respirations: 18 Pulse Ox (%): 95 - Physical Exam General: Alert, In no apparent distress, Oriented x3, Cooperative HEENT: Atraumatic Neck: Supple Respiratory: Clear to auscultation bilaterally, Normal air movement Cardiovascular: Normal pulses, Regular rate/rhythm Gastrointestinal: Normal bowel sounds, Soft and benign, Non-distended Integumentary: Other (No significant edema to the lower extremities. bandages in place) Neurological: Normal speech, Normal strength at 5/5 x4 extr, Normal tone, Normal affect - Studies Microbiology Data (last 24 hrs): 09/21/20 00:25 Wound - Sacral Gram Stain - Final Medications List Reviewed: Yes Assessment & Plan Discharge Plan: LTAC Plan to discharge in: 48 Hours Physician Review Additional Text: Impression: Large unstageable sacral decubitus ulcer with osteomyelitis of the coccyx Stage III pressure ulcers of the lumbar spine and right heel in addition to multiple areas of skin breakdown to posterior lower extremity Acute on chronic renal disease stage III with hyponatremia, hypokalemia likely dehydration Diabetes mellitus type 2 Hypertension COPD Obesity BMI 37 Mild malnutrition Tobacco abuse Anemia of chronic disease with iron deficiency Plan Large unstageable sacral decubitus ulcer with osteomyelitis of the coccyx status post debridement of back, sacrum and posterior leg: Patient had debridement the day before yesterday by surgery. Patient overall improved. Continue IV antibiotic therapy. Case discussed with surgery today. Patient requires long- term acute care facility placement for aggressive wound care and long-term IV antibiotic therapy. Infectious Disease agrees with plan of care. Patient also agrees with plan of care. Await approval and acceptance to long-term acute care facility. Stage III pressure ulcers of the lumbar spine and right heel in addition to multiple areas of skin breakdown to posterior lower extremity: Continue with infectious disease and wound care recommendations. Acute on chronic renal disease stage III with hyponatremia, hypokalemia likely dehydration: Continue with Nephrology recommendations. Diabetes mellitus type 2: A1c 5.3. diabetes well controlled. Accu-Cheks and sliding scale in place. Hypertension: Continue to hold blood pressure medication. COPD: Will provide medication. Maintain sats above 93%. Obesity BMI 37: Will address lifestyle modification education. Mild malnutrition: Address lifestyle modification education. Await recommendations by dietary Tobacco abuse: Patient may require nicotine patch. At this time she does not require it. Tobacco cessation addressed in detail. Anemia of chronic disease with iron deficiency: Will continue with iron supplementation. Will monitor this closely. Time Spent Managing Pts Care (In Minutes): 55
--- NOTE | 2020-09-23 17:38 | P.PN ---
Subjective Date of Service: 09/23/20 Primary Care Provider: Dr. Hodges, wound healing-Dr. Sheffield Chief Complaint: Osteomyelitis A 65-year-old woman with history of diabetes mellitus type 2, neuropathy,Morbid obesity, lymphedema, tobacco abuse, OA with knee replacement, have limited mobility Pt presneted with backpain found to have large sacral decubiti wound, Pt was hypotesnive and tachycardic , WBC 25K , Cr 1.4, NA 131 today FINN resolved pending placement cont current meds Review of Systems: Head and Neck: No red eye. No ear pain. GI: No nausea, no vomiting. : No polyuria, no dysuria, no hematuria. Respiratory: No shortness of breath. Cardiovascular: No chest pain. Endocrine: No polydipsia. Skin: No rash. Neuro: Has neuropathy. Musculoskeletal: back pain Physical exam general: AAOX3, NAD , obese Neck; Supple, No elevated JVD hear: RRR, normal S1,2 no murmur or rub Chest: CTAB, no rlaes or wheezes Abdomen: Soft , Nt Extremities chronic skin changes, no edema, B/L leg dressing A/P FINN due to dehydration , sepsis and ATN resolved US no hydro Hyponatremia resolved Hypocalcemia an hypomagnesemia will replace DM as per primary team HTN controlled will cont to hold BP meds Sepsis boyd to sacral decubiti wound S/P debridment Cont ABx monitor vanco level can be discharged from nephrology point of view Physical Examination - Vital Signs Temperature: 99.2 F Blood Pressure: 127/60 Pulse: 83 Respirations: 16 Pulse Ox (%): 97 - Studies Microbiology Data (last 24 hrs): 09/21/20 00:25 Wound - Sacral Gram Stain - Final Medications List Reviewed: Yes
[2020-09-23] MEDS: ONDANSETRON 4 MG/2 ML VIAL IV PRN (20:40)
[2020-09-24] MEDS: TRAMADOL HCL 50 MG TAB PO PRN ×2 (00:29→06:32)
[2020-09-24] MEDS: Levofloxacin500mg IV 500 MG/100 ML BAG IV SCH (06:10)
[2020-09-24 06:39] LABS: Magnesium 1.8 mg/dL (1.8-2.4); Potassium 3.6 mmol/L (3.5-5.1)
[2020-09-24 06:41] LABS: Absolute Lymphocytes (CBC) 1.4 K/uL (0.7-4.9); Basophils % 0.2 % (0-1.3); Hematocrit 28.2 % (36.0-45.0); Lymphocytes % 17.8 % (15.3-44.8); MPV 7.6 fL (7.6-11.3); RBC Red Blood Cell Count 3.29 M/uL (3.86-4.86)
[2020-09-24] MEDS: INSULIN -REGULAR HUMAN 50 UNIT/0.5 ML ML SQ SCH ×4 (07:30→20:58)
--- NOTE | 2020-09-24 07:52 | EKG ---
Test Date: 2020-09-21 Test Time: 00:29:29 Race Car Driver: DAVID MEASUREMENT RESULTS: Intervals: Rate: 109 NE: QRSD: 90 QT: 470 QTc: 632 [place]: P: NE: QRS: 35 T: -27 INTERPRETIVE STATEMENTS: Accelerated Junctional rhythm Cannot rule out Inferior infarct, age undetermined Cannot rule out Anterior infarct, age undetermined Abnormal ECG Compared to ECG 03/12/2020 09:09:06 Accelerated junctional rhythm now present Myocardial infarct finding now present Sinus rhythm no longer present Electronically Signed On 09-24-20 07:42:25 BUILD AND RELEASE MANAGER by Shailesh Westfall
[2020-09-24] MEDS ORDERED: MAGNESIUM SULFATE 1 gm IVPB 1 GM/100 ML BAG IV ONE (08:00)
[2020-09-24] MEDS: SILVER SULFADIAZINE 1% 50 GM TOP SCH (09:00)
[2020-09-24] MEDS: FERROUS SULFATE 325 MG TAB PO SCH ×2 (09:00→21:10)
[2020-09-24] MEDS: JUVEN PACKET PO SCH ×2 (09:00→21:00)
[2020-09-24] MEDS: DULERA 100/5 (MOMETASONE/FORMOTEROL) INHALER IH SCH ×2 (09:00→21:13)
[2020-09-24] MEDS: CYANOCOBALAMIN 1,000 MCG TAB PO SCH (09:00)
[2020-09-24] MEDS: FOLIC ACID 1 MG TABLET PO SCH (09:00)
[2020-09-24] MEDS ORDERED: POTASSIUM CL SA 10 MEQ TAB PO ONE (09:00)
[2020-09-24] MEDS: NICOTINE 21 MG/PAT TD SCH (09:00)
[2020-09-24] MEDS: VANCOMYCIN 2 GM in NA CHLORIDE 0.9% 500 ML IVPB SCH (09:00)
[2020-09-24] MEDS: COLLAGENASE 30 GM OINTMENT TOP SCH (09:00)
--- NOTE | 2020-09-24 10:12 | P.PN ---
Subjective Date of Service: 09/24/20 Primary Care Provider: Dr. Hodges, wound healing-Dr. Sheffield Chief Complaint: Osteomyelitis Subjective: Improving Physical Examination - Vital Signs Temperature: 98.3 F Blood Pressure: 132/65 Pulse: 126 Respirations: 18 Pulse Ox (%): 96 - Physical Exam General: Alert, In no apparent distress, Oriented x3, Cooperative HEENT: Atraumatic Neck: Supple Respiratory: Clear to auscultation bilaterally, Normal air movement Cardiovascular: Normal pulses, Regular rate/rhythm Gastrointestinal: Normal bowel sounds, No rebound, No guarding Integumentary: No tenderness/swelling Neurological: Normal speech, Normal strength at 5/5 x4 extr, Normal tone, Normal affect - Studies Microbiology Data (last 24 hrs): 09/21/20 00:25 Wound - Sacral Gram Stain - Final 09/21/20 00:25 Wound - Sacral Culture & Sensitivity - Final Enterobacter Hormaechei Medications List Reviewed: Yes Assessment & Plan Discharge Plan: LTAC Plan to discharge in: 24 Hours Physician Review Additional Text: Impression: Large unstageable sacral decubitus ulcer with osteomyelitis of the coccyx, wound culture positive for Enterbacter hormachi Stage III pressure ulcers of the lumbar spine and right heel in addition to multiple areas of skin breakdown to posterior lower extremity Acute on chronic renal disease stage III with hyponatremia, hypokalemia likely dehydration Diabetes mellitus type 2 Hypertension COPD Obesity BMI 37 Mild malnutrition Tobacco abuse Anemia of chronic disease with iron deficiency Plan Large unstageable sacral decubitus ulcer with osteomyelitis of the coccyx status post debridement of back, sacrum and posterior leg, wound culture positive for Enterbacter hormachi: Patient had debridement by surgery. Wound culture reviewed. Will discontinue Levaquin. Will change to meropenem. Pharmacy to monitor and adjust. PICC line in place. Continue with plan of care to discharge to long-term acute care facility for continued aggressive wound care and IV antibiotic therapy. Anticipate approval err over the next 24 hr. I will turn the service over to the hospitalist team tomorrow. I will go over the plan of care with him. Stage III pressure ulcers of the lumbar spine and right heel in addition to multiple areas of skin breakdown to posterior lower extremity: Continue with infectious disease and wound care recommendations. Acute on chronic renal disease stage III with hyponatremia, hypokalemia likely dehydration: Continue with Nephrology recommendations. Diabetes mellitus type 2: A1c 5.3. diabetes well controlled. Accu-Cheks and sliding scale in place. Hypertension: Continue to hold blood pressure medication. Will consider restarting medication if blood pressure elevates. COPD: Will provide medication. Maintain sats above 93%. Obesity BMI 37: Will address lifestyle modification education. Mild malnutrition: Address lifestyle modification education. Await recommendations by dietary Tobacco abuse: Patient may require nicotine patch. At this time she does not require it. Tobacco cessation addressed in detail. Anemia of chronic disease with iron deficiency: Will continue with iron supplementation. Will monitor this closely. Time Spent Managing Pts Care (In Minutes): 55
[2020-09-24] MEDS: HYDROCODONE/APAP 7.5/325 MG TAB PO PRN ×2 (11:07→16:52)
--- NOTE | 2020-09-24 11:10 | PN ---
Date of Progress Note: 09/24/2020 Subjective: The patient is awake, alert. No complaints. Objective: Vital Signs: Stable. Afebrile. Extremities: Examination of the dressing revealed it to be clean and dry and wound VAC is in place. Laboratory Data: White count is 8.1. Cultures were growing out Enterobacter cloacae. Sensitivity r eviewed, sensitive to meropenem and Zosyn. Assessment: Multiple wounds in the sacrum, lower extremity, and back. Recommendations: We will discuss with Dr. Castellon regarding changing the antibiotic to either meropen em or Zosyn, and continue wound care as ordered. Discharge planning. /MODL Voice ID: [id number] Report ID: [id number]
--- NOTE | 2020-09-24 11:48 | P.PN ---
Subjective Date of Service: 09/24/20 Primary Care Provider: Dr. Hodges, wound healing-Dr. Sheffield Chief Complaint: Osteomyelitis A 65-year-old woman with history of diabetes mellitus type 2, neuropathy,Morbid obesity, lymphedema, tobacco abuse, OA with knee replacement, have limited mobility Pt presneted with backpain found to have large sacral decubiti wound, Pt was hypotesnive and tachycardic , WBC 25K , Cr 1.4, NA 131 today have diarrhea today FINN resolved pending placement cont current meds Review of Systems: Head and Neck: No red eye. No ear pain. GI: No nausea, no vomiting. : No polyuria, no dysuria, no hematuria. Respiratory: No shortness of breath. Cardiovascular: No chest pain. Endocrine: No polydipsia. Skin: No rash. Neuro: Has neuropathy. Musculoskeletal: back pain Physical exam general: AAOX3, NAD , obese Neck; Supple, No elevated JVD hear: RRR, normal S1,2 no murmur or rub Chest: CTAB, no rlaes or wheezes Abdomen: Soft , Nt Extremities chronic skin changes, no edema, B/L leg dressing A/P FINN due to dehydration , sepsis and ATN resolved US no hydro Hyponatremia resolved Hypocalcemia an hypomagnesemia will replace DM as per primary team HTN controlled will cont to hold BP meds Sepsis boyd to sacral decubiti wound S/P debridment Cont ABx monitor vanco level can be discharged from nephrology point of view Physical Examination - Vital Signs Temperature: 98.3 F Blood Pressure: 132/65 Pulse: 126 Respirations: 18 Pulse Ox (%): 96 - Studies Microbiology Data (last 24 hrs): 09/21/20 00:25 Wound - Sacral Gram Stain - Final 09/21/20 00:25 Wound - Sacral Culture & Sensitivity - Final Enterobacter Hormaechei Medications List Reviewed: Yes
[2020-09-24] MEDS ORDERED: Meropenem 1000 MG/VIAL IV SCH (21:00)
[2020-09-24] MEDS: Meropenem 1,000 MG in NA CHLORIDE 0.9% 100 ML IV SCH (21:10)
[2020-09-25] MEDS: COLLAGENASE 30 GM OINTMENT TOP SCH (03:44)
[2020-09-25] MEDS: MORPHINE 2 MG/ML SYR IV PRN ×2 (03:44→12:04)
[2020-09-25 05:48] LABS: Magnesium 1.8 mg/dL (1.8-2.4); Potassium 3.4 mmol/L (3.5-5.1)
[2020-09-25] MEDS ORDERED: MAGNESIUM SULFATE 1 gm IVPB 1 GM/100 ML BAG IV ONE (06:14)
[2020-09-25] MEDS: INSULIN -REGULAR HUMAN 50 UNIT/0.5 ML ML SQ SCH ×4 (07:30→20:52)
[2020-09-25] MEDS: KCL 20 MEQ/100 mL IVPB 20 MEQ/100 ML BAG IV SCH ×2 (07:42→10:30)
[2020-09-25] MEDS: Meropenem 1,000 MG in NA CHLORIDE 0.9% 100 ML IV SCH ×2 (07:42→20:55)
[2020-09-25] MEDS: FERROUS SULFATE 325 MG TAB PO SCH ×2 (07:43→21:00)
[2020-09-25] MEDS: CYANOCOBALAMIN 1,000 MCG TAB PO SCH (07:43)
[2020-09-25] MEDS: FOLIC ACID 1 MG TABLET PO SCH (07:43)
[2020-09-25] MEDS: HYDROCODONE/APAP 7.5/325 MG TAB PO PRN (07:45)
[2020-09-25] MEDS: DULERA 100/5 (MOMETASONE/FORMOTEROL) INHALER IH SCH ×2 (07:46→20:54)
[2020-09-25] MEDS: JUVEN PACKET PO SCH ×2 (07:47→21:00)
[2020-09-25] MEDS: NICOTINE 21 MG/PAT TD SCH (07:48)
[2020-09-25] MEDS: SILVER SULFADIAZINE 1% 50 GM TOP SCH (07:49)
[2020-09-25] MEDS: ONDANSETRON 4 MG/2 ML VIAL IV PRN ×2 (08:45→17:44)
--- NOTE | 2020-09-25 11:49 | RAD REPORT ---
EXAM DESCRIPTION: RAD - Chest Single View - 09/24/2020 3:50 am CLINICAL HISTORY: Picc line placement COMPARISON: Report from 09/21/2020 FINDINGS: Single frontal view of the chest. Tubes and lines: Left arm PICC with tip in the SVC. Cardiomediastinal silhouette: Cardiomegaly. Leads overlie the chest. Lungs: No consolidation, pneumothorax, or pleural effusion. Bones: Degenerative change of the spine and shoulders. Upper abdomen: No acute abnormality identified. IMPRESSION: 1. Left arm PICC with tip in the SVC. 2. No acute pneumonic process. Electronically signed by: Jony Underwood 09/24/2020 4:01 AM INFORMATION STRATEGIST Due to temporary technical issues with the PACS/Fluency reporting system, reports are being signed by the in house radiologist without review as a courtesy to ensure prompt reporting. The interpreting r adiologist is fully responsible for the content of the report.
--- NOTE | 2020-09-25 11:51 | P.PN ---
Subjective Date of Service: 09/25/20 Patient is working with therapy. Patient getting range of motion testing. Review of Systems 10-point ROS is otherwise unremarkable Physical Examination - Vital Signs Temperature: 98.5 F Blood Pressure: 134/70 Pulse: 114 Respirations: 16 Pulse Ox (%): 95 - Physical Exam General: Alert, In no apparent distress, Oriented x3 Respiratory: Clear to auscultation bilaterally, Normal air movement Cardiovascular: Regular rate/rhythm, Normal S1 S2, Systolic murmur Gastrointestinal: Normal bowel sounds, Soft and benign, Non-distended - Studies Microbiology Data (last 24 hrs): 09/21/20 00:25 Wound - Sacral Gram Stain - Final 09/21/20 00:25 Wound - Sacral Culture & Sensitivity - Final Enterobacter Hormaechei Medications List Reviewed: Yes Assessment & Plan - Problems (Diagnosis) (1) Renal insufficiency Current Visit: No Status: Acute (2) COPD (chronic obstructive pulmonary disease) Current Visit: No Status: Chronic Qualifiers: COPD type: chronic bronchitis (3) Hypertension Current Visit: No Status: Chronic Qualifiers: Hypertension type: essential hypertension Qualified Code(s): I10 - Essential (primary) hypertension (4) Lymphedema Current Visit: No Status: Chronic (5) Morbid obesity Current Visit: No Status: Chronic (6) Osteoarthritis Current Visit: No Status: Chronic Qualifiers: Osteoarthritis location: multiple joints Osteoarthritis type: unspecified Qualified Code(s): M15.9 - Polyosteoarthritis, unspecified (7) PVD (peripheral vascular disease) Current Visit: No Status: Chronic (8) Osteomyelitis Current Visit: Yes Status: Acute - Plan 1. Continue with IV antibiotic 2. Continue with local wound care 3. Wound care consultation/surgical consultation/Infectious Disease consultation appreciated 4. Gentle IV hydration 5. Monitor CBC 6. Strict blood sugar monitoring 7. Pain control 8. Monitor respiratory status closely and strict blood pressure control 9. GI and DVT prophylaxis Discharge Plan: LTAC Plan to discharge in: Greater than 2 days - Advance Directives Does patient have a Living Will: Yes Does patient have a Durable POA for Healthcare: Yes - Code Status/Comfort Care Code Status Assessed: Yes Code Status: Full Code Critical Care: No Time Spent Managing PTS Care (In Minutes): 45
[2020-09-25 14:17] LABS: C.diff Antigen/Toxin Ag pos : Tox neg (NEG : NEG)
--- NOTE | 2020-09-25 18:49 | PN ---
Subjective: The patient is lying in bed. Has nausea and vomiting. No diarrhea. No constipation. No pain. Objective: Vital Signs: Temperature 97.8, pulse 77, respirations 16, blood pressure 128/62. Lungs: Basal crackles. Heart: S1, S2. Regular. Abdomen: Soft, nontender. Bowel sounds present. Extremities: Trace edema. Laboratory Data: Shows WBC 8.1, hemoglobin 9.4, platelets are 154. Chemistry shows sodium 139, pota ssium 3.4, chloride 106, bicarb 28, BUN 10, creatinine 0.7, glucose is 93, magnesium level 1.8. Woun d cultures are growing Enterobacter cloacae. The patient is currently being treated with wound VAC, collagenase, meropenem, and vancomycin. Assessment And Plan: Sacral stage IV wound with osteomyelitis. Continue antibiotic and supportive c are. Continue wound VAC. We will follow the patient as needed. NF/MODL Voice ID: [id number] Report ID: [id number]
[2020-09-25] MEDS ORDERED: VANCOMYCIN 1 GM/VIAL ONE (21:31)
[2020-09-25] MEDS ORDERED: NA CHLORIDE 0.9% 500 ML ONE (21:31)
[2020-09-25] MEDS: VANCOMYCIN 2 GM in NA CHLORIDE 0.9% 500 ML IVPB SCH (22:03)
--- NOTE | 2020-09-25 22:08 | PN ---
Date of Progress Note: 09/25/2020 Chief Complaint: Acute kidney injury. Subjective: The patient is a 65-year-old woman with history of diabetes mellitus type 2, neuropathy, morbid obesity, lymphedema, tobacco abuse, osteoarthritis with history of knee replacement, has limi nick mobility due to obesity and osteoarthritis. She was found to have large decubitus ulcer. White count is elevated up to 25,000, creatinine 1.4, sodium 131. The patient was found to have acute kidn ey injury. Renal function has improved in response to IV fluids. Prior to this admission, the patie nt had diarrhea and this resolved. Review of Systems: Denies fever or chills. Physical Examination: Lungs: Diminished breath sounds at bases. Heart: S1, S2. Abdomen: Soft, obese, benign. Extremities: Slight edema. Vital Signs: Blood pressure 132/65, temperature 98.3. Impression And Plan: 1.Acute kidney injury secondary to prerenal azotemia due to volume depletion, sepsis, and nonoliguri c acute tubular necrosis. Renal function has improved. Acute kidney injury resolved. Ultrasound di d not show hydronephrosis. 2.Hyponatremia, resolved. 3.Hypocalcemia and hypomagnesemia, replacement was ordered. Monitor magnesium and calcium levels. Recommend to check 25-hydroxy vitamin D level. 4.Diabetes mellitus. Continue insulin per primary recommendation. 5.Hypertension, controlled. Continue to hold blood pressure medication to prevent hypotensive episo de with renal hypoperfusion. 6.Sepsis due to sacral decubitus wound, status post debridement. Continue antibiotics and monitor v ancomycin level. EB/MODL Voice ID: [id number] Report ID: [id number]
[2020-09-26] MEDS ORDERED: KCL 20 MEQ/100 mL IVPB 20 MEQ/100 ML BAG IV SCH ×2 (01:00→09:00)
[2020-09-26] MEDS ORDERED: NA CHLORIDE 0.9% 250 ML ONE (01:24)
[2020-09-26] MEDS: ONDANSETRON 4 MG/2 ML VIAL IV PRN (04:48)
[2020-09-26] MEDS: HYDROCODONE/APAP 7.5/325 MG TAB PO PRN ×2 (04:53→16:26)
[2020-09-26 06:05] LABS: Magnesium 1.9 mg/dL (1.8-2.4); Potassium 3.7 mmol/L (3.5-5.1)
[2020-09-26] MEDS: INSULIN -REGULAR HUMAN 50 UNIT/0.5 ML ML SQ SCH ×4 (07:30→20:29)
[2020-09-26] MEDS: CYANOCOBALAMIN 1,000 MCG TAB PO SCH (08:36)
[2020-09-26] MEDS: FOLIC ACID 1 MG TABLET PO SCH (08:36)
[2020-09-26] MEDS: FERROUS SULFATE 325 MG TAB PO SCH ×2 (08:36→20:29)
[2020-09-26] MEDS: DULERA 100/5 (MOMETASONE/FORMOTEROL) INHALER IH SCH ×2 (08:38→20:27)
[2020-09-26] MEDS: Meropenem 1,000 MG in NA CHLORIDE 0.9% 100 ML IV SCH ×2 (08:38→20:27)
[2020-09-26] MEDS: JUVEN PACKET PO SCH ×2 (08:38→20:29)
[2020-09-26] MEDS: NICOTINE 21 MG/PAT TD SCH (08:39)
[2020-09-26] MEDS: COLLAGENASE 30 GM OINTMENT TOP SCH (08:39)
[2020-09-26] MEDS: SILVER SULFADIAZINE 1% 50 GM TOP SCH (08:40)
[2020-09-26] MEDS: MORPHINE 2 MG/ML SYR IV PRN ×2 (09:26→14:27)
--- NOTE | 2020-09-26 10:38 | P.PN ---
Subjective Date of Service: 09/26/20 Primary Care Provider: Dr. Hodges, wound healing-Dr. Sheffield Chief Complaint: Osteomyelitis A 65-year-old woman with history of diabetes mellitus type 2, neuropathy,Morbid obesity, lymphedema, tobacco abuse, OA with knee replacement, have limited mobility Pt presneted with backpain found to have large sacral decubiti wound, Pt was hypotesnive and tachycardic , WBC 25K , Cr 1.4, NA 131 today have diarrhea today FINN resolved pending approval for manuel SL cont current meds Review of Systems: Head and Neck: No red eye. No ear pain. GI: No nausea, no vomiting. : No polyuria, no dysuria, no hematuria. Respiratory: No shortness of breath. Cardiovascular: No chest pain. Endocrine: No polydipsia. Skin: No rash. Neuro: Has neuropathy. Musculoskeletal: back pain Physical exam general: AAOX3, NAD , obese Neck; Supple, No elevated JVD hear: RRR, normal S1,2 no murmur or rub Chest: CTAB, no rlaes or wheezes Abdomen: Soft , Nt Extremities chronic skin changes, no edema, B/L leg dressing A/P FINN due to dehydration , sepsis and ATN resolved US no hydro Hyponatremia resolved Hypocalcemia an hypomagnesemia will replace DM as per primary team HTN controlled will cont to hold BP meds Sepsis boyd to sacral decubiti wound S/P debridment Cont ABx monitor vanco level total time spent 20min can be discharged from nephrology point of view Physical Examination - Vital Signs Temperature: 98.7 F Blood Pressure: 111/57 Pulse: 77 Respirations: 18 Pulse Ox (%): 97 - Studies Microbiology Data (last 24 hrs): 09/21/20 00:50 Blood - Blood Aerobic Blood Culture - Final No growth in 5 days. 09/21/20 00:50 Blood - Blood Anaerobic Blood Culture - Final No growth in 5 days. 09/21/20 00:25 Blood - Blood Aerobic Blood Culture - Final No growth in 5 days. 09/21/20 00:25 Blood - Blood Anaerobic Blood Culture - Final No growth in 5 days. Medications List Reviewed: Yes
--- NOTE | 2020-09-26 12:48 | CON ---
History Of Present Illness: This is a 65-year-old female I was consulted for sacral coccyx stage IV ulceration which has been debrided prior to me coming into the hospital. The patient also has osteom yelitis on CT scan of coccyx region. The patient denies any headache, nausea, vomiting, chest pain, abdominal pain, constipation, or diarrhea. Currently, somnolent secondary to status post surgical de bridement. The patient also has significant history of diabetes mellitus type 2, COPD, neuropathy, s leep apnea, peripheral vascular disease, atherosclerosis, osteoarthritis, tobacco abuse, left knee re placement, hypertension, right knee surgery x3, hysterectomy in 2001 and right breast surgery with bong mpectomy. Social History: Tobacco positive for more than 10 cigarettes per day. No alcohol use. Family History: Diabetes mellitus, heart disease. Allergies: PENICILLIN ALLERGY CAUSING HIVES AND RASH. THE PATIENT IS CURRENTLY BEING TREATED WITH L EVAQUIN AND VANCOMYCIN. Review of Systems: A 10-point review was performed. Physical Examination: General: This is a 65-year-old female, lying in bed, not in any acute cardiopulmonary distress. Vital Signs: Temperature 98, pulse 70, respirations 16, blood pressure 109/66. Pain level of 10. Blood cultures are pending. Wound cultures are pending. Assessment/plan: Sacral coccyx stage IV wound with osteomyelitis of coccyx region in a patient with diabetes mellitus, chronic obstructive pulmonary disease, peripheral vascular disease, and daily toba junior accountant bookkeeper use and morbid obesity. We will recommend the patient to be transferred to long-term acute care for IV antibiotic and management of sacral coccyx wound and possible hyperbaric treatment. We will f ollow the patient closely. Thank you Dr. Castellon for consult. GOLD/DEE Voice ID: [id number] Report ID: [id number]
[2020-09-27] MEDS: MORPHINE 2 MG/ML SYR IV PRN ×3 (02:41→17:38)
[2020-09-27] MEDS: ONDANSETRON 4 MG/2 ML VIAL IV PRN ×2 (02:41→12:54)
[2020-09-27 04:58] LABS: BUN Blood Urea Nitrogen 9 mg/dL (7-18); Bicarbonate 28 mmol/L (21-32); Glucose Level 75 mg/dL (74-106); Magnesium 1.9 mg/dL (1.8-2.4); Potassium 3.6 mmol/L (3.5-5.1); Sodium Level 141 mmol/L (136-145)
[2020-09-27] MEDS ORDERED: KCL 20 MEQ/100 mL IVPB 20 MEQ/100 ML BAG IV SCH (06:00)
[2020-09-27] MEDS: INSULIN -REGULAR HUMAN 50 UNIT/0.5 ML ML SQ SCH ×4 (07:30→21:00)
[2020-09-27] MEDS: JUVEN PACKET PO SCH ×2 (09:00→21:31)
[2020-09-27] MEDS: VANCOMYCIN 2 GM in NA CHLORIDE 0.9% 500 ML IVPB SCH ×2 (09:00→09:38)
[2020-09-27] MEDS: NICOTINE 21 MG/PAT TD SCH ×2 (09:00→09:22)
[2020-09-27] MEDS: Meropenem 1,000 MG in NA CHLORIDE 0.9% 100 ML IV SCH ×2 (09:21→22:36)
[2020-09-27] MEDS: FOLIC ACID 1 MG TABLET PO SCH (09:22)
[2020-09-27] MEDS: FERROUS SULFATE 325 MG TAB PO SCH ×2 (09:22→21:31)
[2020-09-27] MEDS: CYANOCOBALAMIN 1,000 MCG TAB PO SCH (09:23)
[2020-09-27] MEDS: COLLAGENASE 30 GM OINTMENT TOP SCH (09:24)
[2020-09-27] MEDS: DULERA 100/5 (MOMETASONE/FORMOTEROL) INHALER IH SCH ×2 (09:25→21:31)
[2020-09-27] MEDS: SILVER SULFADIAZINE 1% 50 GM TOP SCH (09:25)
--- NOTE | 2020-09-27 11:37 | PN ---
Subjective: The patient is lying in bed. No new complaints, somnolent, family by the bedside. Objective: Vital Signs: Temperature 97.8, pulse 68, respiration 18, blood pressure 115/55. Lungs: Basal crackles. Heart: S1, S2. Regular. Abdomen: Soft, nontender. Bowel sounds present. Sacral wound noted with a 30% slough and necrotic tissue still present with undermining at 12 o'clock noted, some laceration also surrounding tissue noted. Laboratory Data: Shows WBC 8.1, hemoglobin 9.4, platelets are 154. Chemistry shows sodium 141, pota ssium 3.6, chloride 108, bicarb 28, BUN 9, creatinine 0.65, glucose 75. Microdata is showing enterob acter hormaechei. Assessment And Plan: Sacral stage IV wound, leukocytosis has resolved. Growing Enterobacter hormaech ei into the wound site. Currently being treated with meropenem and vancomycin, pending long-term acu te care transfer. The patient is continued on antibiotic and supportive care. We will follow and con tinue wound VAC. Recommend to apply Santyl instead of Silvadene. We will follow the patient closely . NF/MODL Voice ID: [id number] Report ID: [id number]
[2020-09-27] MEDS: HYDROCODONE/APAP 7.5/325 MG TAB PO PRN (12:54)
[2020-09-27] MEDS ORDERED: MAGNESIUM SULFATE 1 gm IVPB 1 GM/100 ML BAG IV ONE (20:34)
[2020-09-27] MEDS ORDERED: POTASSIUM CL SA 10 MEQ TAB PO ONE (20:35)
--- NOTE | 2020-09-28 01:44 | PN ---
Date of Progress Note: 09/27/2020 Subjective: The patient was admitted with acute kidney injury secondary to prerenal/toxic ATN. Afte r hydration, kidney function has been normalized. Patient waiting for placement to LTAC for setup IV antibiotic and wound care for decubitus ulcer. Physical Examination: Vital Signs: Blood pressure 111/56, pulse of 70, afebrile. Patient had good urine output of 2000. Chest: Clear to auscultation. Heart: S1, S2. Regular. Abdomen: Soft, nontender. Decubitus ulcer. Extremities: Trace edema. Neuro: Alert. No focality. Laboratory Data: WBC 8.1, H and H 9.4 and 28.2. Sodium 141, potassium 3.6, bicarb 28, BUN 9, creati nine 0.6, calcium 7.1, magnesium 1.9. Current Medications: 1.Meropenem. 2.Vancomycin. 3.Ferrous sulfate. 4.Jevity. 5.Folic acid. 6.Zofran. 7.Tramadol. 8.Hydrocodone. Assessment And Plan: 1.Acute kidney injury secondary to prerenal, recovered, resolved. 2.Hypomagnesemia. We will supplement. 3.Hypokalemia. We will supplement. 4.Hypertension, currently controlled, optimal of blood pressure medication. We will continue to mon itor. 5.Decubitus ulcer/osteomyelitis. We will follow up with ID. Continue current antibiotic dose appropriate for current kidney function. ELAINA/DEE Voice ID: [id number] Report ID: [id number]
[2020-09-28 02:26] VITALS: O2SAT 98
[2020-09-28 05:10] LABS: BUN Blood Urea Nitrogen 11 mg/dL (7-18); Bicarbonate 29 mmol/L (21-32); Glucose Level 73 mg/dL (74-106); Magnesium 2.1 mg/dL (1.8-2.4); Potassium 3.8 mmol/L (3.5-5.1); Sodium Level 139 mmol/L (136-145)
[2020-09-28] MEDS: INSULIN -REGULAR HUMAN 50 UNIT/0.5 ML ML SQ SCH ×3 (07:30→16:30)
[2020-09-28] MEDS ORDERED: POTASSIUM CL SA 10 MEQ TAB PO ONE (09:00)
[2020-09-28] MEDS: NICOTINE 21 MG/PAT TD SCH (09:00)
[2020-09-28] MEDS: JUVEN PACKET PO SCH (09:00)
[2020-09-28] MEDS: FOLIC ACID 1 MG TABLET PO SCH (09:48)
[2020-09-28] MEDS: CYANOCOBALAMIN 1,000 MCG TAB PO SCH (09:48)
[2020-09-28] MEDS: FERROUS SULFATE 325 MG TAB PO SCH (09:48)
[2020-09-28] MEDS: ONDANSETRON 4 MG/2 ML VIAL IV PRN (09:48)
[2020-09-28] MEDS: Meropenem 1,000 MG in NA CHLORIDE 0.9% 100 ML IV SCH (09:49)
[2020-09-28] MEDS: HYDROCODONE/APAP 7.5/325 MG TAB PO PRN (09:51)
[2020-09-28] MEDS: DULERA 100/5 (MOMETASONE/FORMOTEROL) INHALER IH SCH (09:55)
[2020-09-28] MEDS: COLLAGENASE 30 GM OINTMENT TOP SCH (09:55)
[2020-09-28] MEDS: SILVER SULFADIAZINE 1% 50 GM TOP SCH (09:55)
--- NOTE | 2020-09-28 10:06 | P.PN ---
Subjective Date of Service: 09/26/20 Patient continues to remain stable with no new complaints. Clinically patient is still seeing wound care in getting wound care therapy. Patient is needing aggressive treatment with IV antibiotics and pain control. Infectious Disease and surgery consultation is appreciated. Renal function is stable. Continue with current antibiotic therapy. Patient with generalized weakness and continues to do very poorly with physical therapy. Hopefully we can get patient transferred over the next 24-48 hr to LTAC facility. Review of Systems 10-point ROS is otherwise unremarkable Physical Examination - Vital Signs Temperature: 98.5 F Blood Pressure: 134/70 Pulse: 114 Respirations: 16 Pulse Ox (%): 95 - Physical Exam General: Alert, In no apparent distress, Oriented x3 Respiratory: Clear to auscultation bilaterally, Normal air movement Cardiovascular: Regular rate/rhythm, Normal S1 S2, No murmurs Gastrointestinal: Normal bowel sounds, Soft and benign, Non-distended, No tenderness Integumentary: Pressure ulcer Neurological: Sensation intact, Cranial nerves 3-12 intact, Abnormal gait, Abnormal strength - Studies Medications List Reviewed: Yes Assessment & Plan - Problems (Diagnosis) (1) Renal insufficiency Current Visit: No Status: Acute (2) COPD (chronic obstructive pulmonary disease) Current Visit: No Status: Chronic Qualifiers: COPD type: chronic bronchitis (3) Hypertension Current Visit: No Status: Chronic Qualifiers: Hypertension type: essential hypertension Qualified Code(s): I10 - Essential (primary) hypertension (4) Lymphedema Current Visit: No Status: Chronic (5) Morbid obesity Current Visit: No Status: Chronic (6) Osteoarthritis Current Visit: No Status: Chronic Qualifiers: Osteoarthritis location: multiple joints Osteoarthritis type: unspecified Qualified Code(s): M15.9 - Polyosteoarthritis, unspecified (7) PVD (peripheral vascular disease) Current Visit: No Status: Chronic (8) Osteomyelitis Current Visit: Yes Status: Acute - Plan Continue with plan of care as mentioned below 1. Continue with IV antibiotic; awaiting LTAC placement. White blood cell count has normalized. Wound being treated by wound care. Appreciate surgery and Infectious Disease consultation. 2. Pain control 3. Monitor respiratory status closely and strict blood pressure control 4. GI and DVT prophylaxis Discharge Plan: LTAC Plan to discharge in: 48 Hours - Advance Directives Does patient have a Living Will: Yes Does patient have a Durable POA for Healthcare: Yes - Code Status/Comfort Care Code Status: Full Code Critical Care: No Time Spent Managing PTS Care (In Minutes): 45
--- NOTE | 2020-09-28 10:08 | P.PN ---
Subjective Date of Service: 09/27/20 Patient with no new complaints. Spoke with Infectious Disease and they recommend collagenase to the wound. Still await LTAC placement at this time. Patient has IV antibiotic that is needed for sacral osteomyelitis. Patient is also needing physical therapy for her generalized weakness. If patient is not accepted and will need to try senior living facility placement. Review of Systems 10-point ROS is otherwise unremarkable Physical Examination - Vital Signs Temperature: 98.5 F Blood Pressure: 134/70 Pulse: 114 Respirations: 16 Pulse Ox (%): 95 - Physical Exam General: Alert, In no apparent distress, Oriented x3 Respiratory: Clear to auscultation bilaterally, Normal air movement Cardiovascular: Regular rate/rhythm, Normal S1 S2, No murmurs Gastrointestinal: Normal bowel sounds, Soft and benign, Non-distended, No tenderness Musculoskeletal: No clubbing, Swelling, Erythema, Tenderness Integumentary: Pressure ulcer Neurological: Normal speech, Sensation intact, Cranial nerves 3-12 intact, Abnormal gait, Abnormal strength - Studies Medications List Reviewed: Yes Assessment & Plan - Problems (Diagnosis) (1) Renal insufficiency Status: Acute (2) COPD (chronic obstructive pulmonary disease) Status: Chronic Qualifiers: COPD type: chronic bronchitis (3) Hypertension Status: Chronic Qualifiers: Hypertension type: essential hypertension Qualified Code(s): I10 - Essential (primary) hypertension (4) Lymphedema Status: Chronic (5) Morbid obesity Status: Chronic (6) Osteoarthritis Status: Chronic Qualifiers: Osteoarthritis location: multiple joints Osteoarthritis type: unspecified Qualified Code(s): M15.9 - Polyosteoarthritis, unspecified (7) PVD (peripheral vascular disease) Status: Chronic (8) Osteomyelitis Status: Acute - Plan Continue with plan of care as mentioned below 1. Continue with IV antibiotic; awaiting LTAC placement. Continue monitoring labs including white blood cell count. Continue wound care. She will be transferred to Dr. Mooney as of now to long-term acute care facility. 2. Pain control 3. Monitor respiratory status closely and strict blood pressure control 4. GI and DVT prophylaxis Discharge Plan: LTAC Plan to discharge in: 24 Hours - Advance Directives Does patient have a Living Will: Yes Does patient have a Durable POA for Healthcare: Yes - Code Status/Comfort Care Code Status: Full Code Critical Care: No Time Spent Managing PTS Care (In Minutes): 35
--- NOTE | 2020-09-28 13:55 | P.DS ---
Discharge Date: 09/28/20 Primary Care Provider: Dr. Hodges, wound healing-Dr. Sheffield Disposition: [facility] Discharge Condition: GOOD Reason for Admission: Osteomyelitis - Problems (1) Renal insufficiency Status: Acute (2) COPD (chronic obstructive pulmonary disease) Status: Chronic Qualifiers: COPD type: chronic bronchitis (3) Hypertension Status: Chronic Qualifiers: Hypertension type: essential hypertension Qualified Code(s): I10 - Essential (primary) hypertension (4) Lymphedema Status: Chronic (5) Morbid obesity Status: Chronic (6) Osteoarthritis Status: Chronic Qualifiers: Osteoarthritis location: multiple joints Osteoarthritis type: unspecified Qualified Code(s): M15.9 - Polyosteoarthritis, unspecified (7) PVD (peripheral vascular disease) Status: Chronic (8) Osteomyelitis Status: Acute Brief History of Present Illness: Patient is a 65-year-old female admitted to the hospital with Hospital Course: Patient had done well during hospitalization. Patient was continued on IV antibiotic therapy. Patient has multiple wounds including a large sacral decu bitus ulcer to the bone. Patient also had a right hip wound. Patient has a heal ulcer as well. Pt will be cared for at the [facility]. Patient will need to continue with broad-spectrum antibiotic coverage with vancomycin and meropenem. Patient will Wound care as well. Continue with close follow up at the [facility]. At this time, patient is stable for discharge. Vital Signs/Physical Exam: Temp Pulse Resp BP Pulse Ox 97.1 F 74 18 101/51 L 96 09/28/20 12:00 09/28/20 12:00 09/28/20 12:00 09/28/20 12:00 09/28/20 12:00 General: Alert, In no apparent distress, Cooperative, Disheveled, Demented Laboratory Data at Discharge: WBC 8.1 K/uL (4.3-10.9) 09/24/20 05:47 Hgb 9.4 g/dL (12.0-15.0) L 09/24/20 05:47 Hct 28.2 % (36.0-45.0) L 09/24/20 05:47 Plt Count 154 K/uL (152-406) 09/24/20 05:47 Sodium 139 mmol/L (136-145) 09/28/20 04:35 Potassium 3.8 mmol/L (3.5-5.1) 09/28/20 04:35 BUN 11 mg/dL (7-18) 09/28/20 04:35 Creatinine 0.61 mg/dL (0.55-1.3) 09/28/20 04:35 Glucose 73 mg/dL (74-106) L 09/28/20 04:35 Uric Acid 4.8 mg/dL (2.6-6.0) D 09/21/20 18:48 Magnesium 2.1 mg/dL (1.8-2.4) 09/28/20 04:35 Home Medications: Gabapentin 600 mg PO TID 01/16/19 Metformin ER [Glucophage ER*] 250 mg PO DAILY 01/16/19 Tramadol HCl [Ultram] 50 mg PO TID 01/16/19 Albuterol Inhaler [Ventolin Inhaler*] 2 puff IH Q6HP PRN hfa.aer.ad 09/28/20 Collagenase [Santyl Ointment*] 1 appl TOP DAILY tube 09/28/20 Cyanocobalamin [Vitamin B-12*] 1,000 mcg PO DAILY tab 09/28/20 Ferrous Sulfate [Ferrous Sulfate*] 325 mg PO BID tab 09/28/20 Hydrocodone 7.5/APAP 325 [Bath 7.5/325 mg*] 1 tab PO Q6H PRN tab 09/28/20 Ej [Ej*] 1 pkt PO BID powd.pack 09/28/20 Meropenem [Merrem 1 GM/100 ML NS IVPB] 1 gm IV Q12H #70 bag 09/28/20 Mometasone/Formoterol [Dulera 100 Mcg/5 Mcg Inhaler] 2 puff IH BID inhaler 09/28/20 Nicotine [Nicoderm*] 21 mg TD DAILY patch.td24 09/28/20 Ondansetron [Zofran*] 4 mg IV Q6HP PRN vial 09/28/20 Silver Sulfadiazine Crm [Silvadene*] 1 appl TOP DAILY jar 09/28/20 Vancomycin/Water For Inj (Peg) [Vancomycin 2 Gram/400 ml Bag] 2 gm IV Q36H #24 piggyback 09/28/20 New Medications: Meropenem [Merrem 1 GM/100 ML NS IVPB] 1 gm IV Q12H #70 bag Vancomycin/Water For Inj (Peg) [Vancomycin 2 Gram/400 ml Bag] 2 gm IV Q36H #24 piggyback Patient Discharge Instructions: OK TO DC TO LTAC FACILITY. FOLLOW-UP WITH LTAC PROVIDER IN 24 HR. FOLLOW-UP WITH INFECTIOUS DISEASE IN 48HRS WEEKS. PHYSICAL THERAPY CONSULTATION. WOUND CARE CONSULTATION. CALL or TEXT DR. PIERCE AT [phone] IF ANY QUESTIONS REGARDING HOSPITAL STAY. PLEASE CALL THE FLOOR AT [phone] IF ANY MEDICATION OR NURSING QUESTIONS. Diet: ADA Activity: Fall precautions Followup: NONE,NONE [Primary Care Provider] - Time spent managing pt's care (in minutes): 35
--- NOTE | 2020-09-28 18:19 | PN ---
Subjective: The patient is lying in bed. by the bedside. Denies any headache, nausea, vomi ting, chest pain, abdominal pain, constipation, or diarrhea. Objective: Vital Signs: Temperature 97.1, pulse 74, respirations 18, blood pressure 101/51. Lungs: Basal crackles. Heart: S1, S2. Regular. Abdomen: Soft, nontender. Bowel sounds present. Extremities: No edema. Laboratory Data: Labs reviewed. Assessment And Plan: Sacral stage IV wound with osteomyelitis. The [facility] for hyperbaric and IV antibiotic and wound VAC and wound care management for possib le serial debridement. NF/MODL Voice ID: [id number] Report ID: [id number]
--- NOTE | 2020-09-29 00:40 | PN ---
Date of Progress Note: 09/28/2020 Chief Complaint: Acute kidney injury. History Of Present Illness: Patient was admitted to the hospital because of acute kidney injury, prerenal azotemia, acute tubular necrosis. Patient received IV fluids for hydration to treat acute kidney injury. Patient is on IV antibiotics for decubitus ulcer and is undergoing wound care and wound debridement. Review of Systems: Denies PND, orthopnea. Physical Examination: Lungs: Diminished breath sounds at bases. Heart: S1, S2. Abdomen: Soft, benign. Extremities: Edema present. Laboratory Data: Sodium 141, potassium 3.6, bicarbonate 28, BUN 9, creatinine 0.6, calcium 7.1, magnesium 1.9. Impression And Plan: 1. Acute kidney injury secondary to prerenal azotemia, nonoliguric acute tubular necrosis. Renal function has improved to baseline. Avoid nephrotoxic medication. 2. Hypomagnesemia. Patient started on supplementation for potassium and magnesium. Monitor electrolytes and renal function. 3. Hypertension, blood pressure controlled. Continue current medication. 4. Decubitus ulcer/osteomyelitis. Continue antibiotics. ANDRZEJ/DEE Voice ID: [id number] Report ID: [id number] MAYRA
[2020-10-03 03:54] VITALS: BP 134/70; TEMP 98.5
== END 2020-09-28 19:05 | DRG 853 ==
LOC: ER 00:12 → ERHOLD 04:04 → 4TH 09:45 → 2ND 09-25 15:01
PROVIDERS: ADMIT Family Medicine; ATTEND Hospitalist
PROC: 0JB70ZZ Excision of Back Subcutaneous Tissue and Fascia, Open Approach (ICD-10-PCS; 2020-09-21)
PROC: 0JBP0ZZ Excision of Left Lower Leg Subcutaneous Tissue and Fascia, Open Approach (ICD-10-PCS; 2020-09-21)
PROC: 0JBN0ZZ Excision of Right Lower Leg Subcutaneous Tissue and Fascia, Open Approach (ICD-10-PCS; 2020-09-21)
PROC: 0QB10ZZ Excision of Sacrum, Open Approach (ICD-10-PCS; principal; 2020-09-21 10:15)
PROC: 02HV33Z Insertion of Infusion Device into Superior Vena Cava, Percutaneous Approach (ICD-10-PCS; 2020-09-24)
DX: A41.9 Sepsis, unspecified organism (principal); L89.154 Pressure ulcer of sacral region, stage 4; L89.893 Pressure ulcer of other site, stage 3; L89.613 Pressure ulcer of right heel, stage 3; N17.0 Acute kidney failure with tubular necrosis; E87.1 Hypo-osmolality and hyponatremia; M86.8X8 Other osteomyelitis, other site; E44.1 Mild protein-calorie malnutrition; I12.9 Hypertensive chronic kidney disease with stage 1 through stage 4 chronic kidney disease, or unspecified chronic kidney disease; N18.30 Chronic kidney disease, stage 3 unspecified; E11.22 Type 2 diabetes mellitus with diabetic chronic kidney disease; E11.51 Type 2 diabetes mellitus with diabetic peripheral angiopathy without gangrene; E11.40 Type 2 diabetes mellitus with diabetic neuropathy, unspecified; E86.0 Dehydration; E87.6 Hypokalemia; E83.42 Hypomagnesemia; D50.9 Iron deficiency anemia, unspecified; I89.0 Lymphedema, not elsewhere classified; M16.0 Bilateral primary osteoarthritis of hip; F17.210 Nicotine dependence, cigarettes, uncomplicated; J42 Unspecified chronic bronchitis; B96.89 Other specified bacterial agents as the cause of diseases classified elsewhere; E66.01 Morbid (severe) obesity due to excess calories; Z68.37 Body mass index [BMI] 37.0-37.9, adult; Z88.0 Allergy status to penicillin; Z79.84 Long term (current) use of oral hypoglycemic drugs; Z79.899 Other long term (current) drug therapy; Z88.5 Allergy status to narcotic agent; Z91.19 Patient's noncompliance with other medical treatment and regimen; Z96.652 Presence of left artificial knee joint; Z90.710 Acquired absence of both cervix and uterus; Z20.828 Contact with and (suspected) exposure to other viral communicable diseases
CPT/HCPCS: 36415; 36569; 51702; 71045; 72193; 76770; 80048; 80202; 82550; 82570; 82607; 82728; 82947; 83036; 83540; 83605; 83735; 84132; 84145; 84156; 84439; 84443; 84466; 84550; 85025; 85652; 86140; 87040; 87070; 87075; 87077; 87186; 87205; 87324; 87449; 87493; 88304; 93005; 96361; 96365; 96367; 96375; 97110; 97112; 97530; 99285; J0610; J1100; J1170; J2175; J2185; J2250; J2270; J2405; J2704; J3010; J3370; J3475; J3480; J3590; J7030; J7040; J7050; J7606; Q9967; U0002

== ENCOUNTER 2024-02-21 18:34 | Inpatient (IN) | payer OTHER ==
[2024-02-21] MEDS ORDERED: NA CHLORIDE 0.9% 1,000 ML ONE ×2 (19:40→20:44)
[2024-02-21 19:47] LABS: Absolute Basophils 0.1 K/uL (0-0.5); Absolute Lymphocytes (CBC) 1.9 K/uL (0.7-4.9); Absolute Monocytes 0.8 K/uL (0.1-1.3); Absolute Neutrophil 11.5 K/uL (1.8-8.0); Basophils % 0.4 % (0-1.3); Eosinophils % 0.2 % (0-4.4); Hematocrit 49.9 % (36.0-45.0); Hemoglobin 16.6 g/dL (12.0-15.0); Lymphocytes % 13.2 % (15.3-44.8); MCH 30.2 pg (27.0-35.0); MCHC 33.2 g/dL (32.0-36.0); MCV 91.1 fL (80-100); MPV 9.7 fL (7.6-11.3); Monocytes % 5.6 % (3.3-12.3); Neutrophils % 80.6 % (41.7-73.7); Nucleated Red Blood Cells % 0.1 % (0-0); Platelets 154 thou/uL (152-406); RBC Red Blood Cell Count 5.48 M/uL (3.86-4.86); Red Cell Distribution Width 15.7 % (12.1-15.2)
[2024-02-21 19:58] LABS: PTT, Activated Partial Thromb 29.3 SECONDS (24.3-36.9); Protime INR 1.19
[2024-02-21 19:59] LABS: SARS-CoV-2 Antigen CONTROL BLUE LINE VIS/BG OK; SARS-CoV-2 Antigen Rapid Res Negative (Negative)
[2024-02-21 20:29] LABS: Albumin 2.4 g/dL (3.4-5.0); Albumin/Globulin Ratio 0.6 (1.1-1.8); Anion Gap 12.6 mEq/L (5.0-15.0); Bilirubin Total 2.1 mg/dL (0.2-1.0); Protein, Total 6.4 g/dL (6.4-8.2); Troponin High Sensitivity 10.3 pg/mL (<58.9)
[2024-02-21 20:35] LABS: Potassium 2.6 mEq/L (3.5-5.1)
--- NOTE | 2024-02-21 20:38 | RAD REPORT ---
EXAM DESCRIPTION: Tana Single View02/21/2024 8:10 pm CLINICAL HISTORY: Malaise and weakness COMPARISON: 2022 FINDINGS: The lungs appear clear of acute infiltrate. The heart is normal size IMPRESSION: No acute abnormalities displayed
[2024-02-21] MEDS ORDERED: VANCOMYCIN 1 GM/VIAL ONE (20:43)
[2024-02-21] MEDS ORDERED: KCL 20 MEQ/100 mL IVPB 100 ML IV ONE (20:44)
[2024-02-21] MEDS ORDERED: NA CHLORIDE 0.9% 250 ML ONE (20:44)
--- NOTE | 2024-02-21 22:16 | RAD REPORT ---
EXAM DESCRIPTION: CT - Chest Abdomen Pelvis W Cont - 02/21/2024 9:37 pm CLINICAL HISTORY: Chest and abdominal pain COMPARISON: CT abdomen 2018 TECHNIQUE: Computed axial tomography of the chest, abdomen and pelvis was obtained. 100 cc Isovue-30 0 was administered intravenously. Oral contrast was not requested. This limits evaluation of bowel. All CT scans are performed using dose optimization technique as appropriate and may include automated exposure control or mA/KV adjustment according to patient size. FINDINGS: The lungs are essentially clear No mediastinal or hilar lymphadenopathy. Approximately 2.2 centimeter thyroid nodule not completely v isualized in the [id number] left lobe of thyroid gland. No pleural effusion. No pericardial effusion. Coronary arterial calcifications 5 centimeter fatty mass interatrial septum could represent lipomatosis hypertrophy or lipoma Fatty liver. Paragraphs spleen, pancreas, right adrenal and kidneys unremarkable. A 1.8 centimeter left adrenal mass. Unchanged from 2018 likely benign. No follow-up recommended No evidence of diverticulitis A Sifuentes catheter within the bladder. Normal appendix. Hysterectomy. No adnexal mass Spondylosis lumbar spine results in spinal stenosis Atherosclerosis Cholelithiasis. No gallbladder wall thickening Chronic inflammatory changes subcutaneous fat to the right of midline posterior to coccyx Marked osteoarthritis involves the hips IMPRESSION: Approximately 2.2 centimeter thyroid nodule not completely visualized in the field-of-vi ew left lobe of thyroid gland. Nonemergent thyroid ultrasound recommended 5 centimeter fatty mass interatrial septum could represent lipomatosis hypertrophy or lipoma Cholelithiasis without evidence cholecystitis Spondylosis lumbar spine results in spinal stenosis
--- NOTE | 2024-02-21 22:25 | RAD REPORT ---
EXAM DESCRIPTION: RAD - Tib Fib Right - 02/21/2024 9:49 pm CLINICAL HISTORY: Right leg pain and ulceration FINDINGS: Soft tissue ulceration mid lower leg. Edema within soft tissue The tibia and fibula have a mottled appearance. This may represent marked osteoporosis. Chronic osteo myelitis is another consideration. If clinically indicated further evaluation with CT or MRI could be obtained
--- NOTE | 2024-02-21 22:25 | RAD REPORT ---
EXAM DESCRIPTION: RADTib Fib Left02/21/2024 9:49 pm CLINICAL HISTORY: Left leg pain FINDINGS: No fracture is seen Bones have a mottled appearance. This could be secondary to chronic osteomyelitis or marked osteoporo sis. If clinically indicated further evaluation with CT or MRI could be obtained
--- NOTE | 2024-02-21 23:26 | ER ---
Nurse's Notes [facility] Name: Carrie Webb Age: 68 yrs Sex: Female : 1955 Arrival Date: 02/21/2024 Time: 18:34 Bed 16 Private MD: Diagnosis: Sepsis, unspecified organism;Hypokalemia Presentation: 02/20 18:38 Chief complaint: Chief complaint: EMS states: generalized weakness and not eating well aa5 x 10 days as reported by pt's /caregiver. 18:38 Onset of symptoms was February 2024. aa5 18:38 Acuity: YOSSI 2 aa5 18:38 Method Of Arrival: EMS: [facility] aa5 18:38 Coronavirus screen: At this time, the client does not indicate any symptoms associated aa5 with coronavirus-19. Ebola Screen: Patient denies travel to an Ebola-affected area in the 21 days before illness onset. Initial Sepsis Screen: Does the patient meet any 2 criteria? HR > 90 bpm. Does the patient have a suspected source of infection? No. Patient's initial sepsis screen is negative. Risk Assessment: Do you want to hurt yourself or someone else? Patient reports no desire to harm self or others. Historical: - Allergies: 18:46 PENICILLINS; aa5 - PMHx: 18:46 Cellulitis; chronic back pain (Lymphadema); Diabetes - NIDDM; Hypertension; Lymphadema; aa5 18:46 Wounds to legs; Keating catheter; aa5 - Immunization history:: Adult Immunizations unknown. - Infectious Disease History:: Denies. - Social history:: Smoking status: Patient reports the use of cigarette tobacco products, smokes one pack cigarettes per day. Screenin:46 [facility] ED Fall Risk Assessment (Adult) History of falling in the last 3 months, me1 including since admission No falls in past 3 months (0 pts) Confusion or Disorientation No (0 pts) Intoxicated or Sedated No (0 pts) Impaired Gait Yes (1 pt) Mobility Assist Device Used Yes (1 pt) Altered Elimination Yes (1 pt) Score/Fall Risk Level 0 - 2 = Low Risk Maintained a safe environment, Hourly rounding (assess needs \T\ fall precautionary measures) done, Used ambulatory aids as needed (educated on \T\ assisted with). Abuse screen: Denies threats or abuse. Nutritional screening: No deficits noted. Tuberculosis screening: No symptoms or risk factors identified. Assessment: 19:46 General: Appears uncomfortable, ill, unkempt, Behavior is calm, cooperative, me1 appropriate for age, Reports fatigue for generalized weakness and not eating well x 10 days per . Pain: Complains of pain in right leg and left leg Pain does not radiate. Pain currently is 7 out of 10 on a pain scale. Quality of pain is described as stinging, Pain began gradually, years ago. Is continuous. Neuro: Level of Consciousness is awake, alert, obeys commands, Oriented to person, place, time, situation, Appropriate for age. Cardiovascular: Capillary refill < 3 seconds Patient's skin is warm and dry. Respiratory: Airway is patent Respiratory effort is even, unlabored, Respiratory pattern is regular, symmetrical. GI: Reports nausea, vomiting, since n/v for past few days with decreased appetite for last 10 days. : Keating in place changed yesterday per . Derm: Wound noted right calf Wound is wounds with purulent drainage and redness to periwound area. skin is dry and flaky. Musculoskeletal: Reports weakness in generalized. 23:32 General: Stat lock applied to right leg/keating catheter.. Derm: Wound noted right calf me1 and left calf Wound is wounds with purulent drainage noted to posterior bilateral lower legs. Cleaned with NS, petroleum gauze, 4x4s and kerlex applied bilaterally, secured with tape. Redness to sacrum. 02/21 00:45 Reassessment: Assumed care of patient at this time. Pt A\T\Ox4, respirations even and cm10 unlabored on RA. Pt updated on plan of care and made aware that she would be going to a new room soon. Pt noted to have a keating catheter in place, dressings to bilateral lower legs. Pt also noted to have had a BM and patient's brief changed. Vital Signs: 02/20 18:38 BP 118 / 78; Pulse 107; Resp 14 S; Temp 98.6(O); Pulse Ox 98% on R/A; aa5 19:00 BP 114 / 91; Pulse 144; Resp 19; Pulse Ox 99% on 2 lpm NC; me1 19:45 BP 116 / 79; Pulse 113; Resp 16; Pulse Ox 98% on 2 lpm NC; me1 20:30 BP 122 / 90; Pulse 120; Resp 21; Pulse Ox 98% on 2 lpm NC; me1 21:00 BP 100 / 70; Pulse 101; Resp 18; Pulse Ox 94% on 2 lpm NC; me1 22:00 BP 127 / 58; Pulse 97; Resp 20; Pulse Ox 100% ; me1 23:00 BP 96 / 77; Pulse 96; Resp 17; Pulse Ox 100% on R/A; me1 23:45 BP 103 / 73; Pulse 114; Resp 20; Pulse Ox 100% on R/A; me1 02/21 00:00 BP 107 / 74; Pulse 116; Resp 18; Pulse Ox 100% on R/A; cm10 00:30 BP 101 / 77; Pulse 116; Resp 18; Pulse Ox 100% on R/A; cm10 00:45 BP 105 / 67; Pulse 103; Resp 16; Pulse Ox 100% on R/A; cm10 ED Course: 02/20 18:37 Second set of blood cultures drawn by ED staff. me1 18:38 Patient arrived in ED. mc5 18:38 Arm band placed on Patient placed in an exam room, on a stretcher. aa5 18:45 Client placed on continuous cardiac and pulse oximetry monitoring. NIBP monitoring il1 applied. night monitor on. Pulse ox on. NIBP on. 18:47 Juanito Luu PA is PHCP. cp 18:47 Ayaan Coombs MD is Attending Physician. cp 18:47 Triage completed. aa5 18:58 Ama Perez, BERNADETTE is Primary Nurse. me1 19:25 Initial lab(s) drawn, by il, sent to lab. First set of blood cultures drawn by il, [facility] COVID swab sent to lab. Wound culture swab sent to lab. 19:36 Inserted saline lock: 22 gauge in left antecubital area, using aseptic technique. me1 19:37 Wound Culture Sent. me1 19:37 SARS RAPID Sent. me1 19:37 Troponin High Sensitivity Sent. me1 19:37 Blood Culture Adult (2) Sent. me1 19:37 CMP Sent. me1 19:37 Lactate w/ 2H reflex if indic. Sent. me1 19:37 Protime (+inr) Sent. me1 19:37 Ptt, Activated Sent. me1 19:46 Patient has correct armband on for positive identification. Bed in low position. Call me1 light in reach. Side rails up X2. Provided Education on: POC. Verbalized understanding. . 19:46 No provider procedures requiring assistance completed. me1 20:12 Chest Single View XRAY In Process Unspecified. EDMS 20:27 EKG done, by ED staff, reviewed by Juanito LILLY. me1 20:31 Inserted saline lock: 20 gauge in right hand, using aseptic technique. rv 20:32 Notified Nurse Practitioner and/or Physician Cement Tester Assistant of a critical lab result(s), me1 lactic acid 2.6. 20:37 Notified Nurse Practitioner and/or Physician Cement Tester Assistant of a critical lab result(s), K+ me1 2.6. 21:06 Inserted MIDLINE [id number] LEFT UPPER ARM. rv 21:39 CT Chest, Abdomen, Pelvis - W/Contrast In Process Unspecified. EDMS 21:51 XRAY Tib Fib LEFT In Process Unspecified. EDMS 21:51 XRAY Tib Fib RIGHT In Process Unspecified. EDMS 23:20 EKG done, by ED staff, reviewed by Juanito LILLY. me1 23:25 Kevin Owusu MD is Hospitalizing Provider. cp 02/21 00:45 Report received from Ama Coker RN. cm10 00:45 Cleaned of incontinence. cm10 00:51 Patient transferred, IV remains in place. me1 Administered Medications: 02/20 19:44 Drug: NS 0.9% IV 1000 ml IV at 999 ml/hr Per protocol Route: IV; Rate: 999 ml/hr; Site: [facility] left antecubital; 21:38 Follow up: Response: No adverse reaction; IV Status: Completed infusion; IV Intake: me1 1000ml 21:06 Drug: vancoMYCIN IVPB 1 grams IVPB once over 2 hrs Route: IVPB; Infused Over: 2 hrs; rv Site: left upper arm; 23:06 Follow up: Response: No adverse reaction; IV Status: Completed infusion me1 21:06 Drug: NS 0.9% IV 1000 ml IV at 9999 ml/hr Per protocol; 1000 mL bolus Route: IV; Rate: rv 9999 ml/hr; Site: right hand; 02/21 00:04 Follow up: Response: No adverse reaction; IV Status: Completed infusion; IV Intake: me1 1000ml 02/20 22:10 Drug: Potassium Chloride IV 20 mEq IV at calculated rate once; administer over 1-2 pf1 hours Route: IV; Rate: calculated rate; Site: left upper arm; 02/21 00:04 Follow up: Response: No adverse reaction; IV Status: Completed infusion me1 00:04 Drug: Potassium PO Effervescent Tablet 50 mEq PO once; dissolve in 4 ounces of water or me1 juice Route: PO; 00:04 Drug: Cefepime IVPB 1 grams IVPB at 200 ml/hr once over 30 mins; (mix in NS 100 mL) me1 Route: IVPB; Rate: 200 ml/hr; Infused Over: 30 mins; Site: left upper arm; 00:32 Follow up: Response: No adverse reaction; IV Status: Completed infusion me1 00:04 Drug: Ondansetron IVP 4 mg IVP once; over 2 minutes Route: IVP; Site: left upper arm; me1 00:33 Follow up: Response: No adverse reaction [facility] Medication: 02/20 19:46 VIS not applicable for this client. me1 Intake: 21:38 IV: 1000ml; Total: 1000ml. me1 02/21 00:04 IV: 1000ml; Total: 2000ml. il1 Outcome: 02/20 23:25 Decision to Hospitalize by Provider. 02/21 00:51 Admitted to ICU accompanied by nurse, room -4, with chart, Report called to stormy Ferrell RN Condition: stable Instructed on the need for admit, 01:10 Patient left the ED. cm10 Signatures: [facility] Yashira Flynn, RN RN aa5 Juanito Luu PA PA Patrick Greene RN RN Joleen Mix RN RN pf1 Amara Bustamante RN RN cm10 Ama Perez RN RN me1 Meghana Guajardo 5 Corrections: (The following items were deleted from the chart) 02/20 18:47 18:38 Chief complaint: aa5 aa5 19:37 19:37 CBC+H.LAB.BRZ drawn and sent. [facility] EDNE 02/21 00:27 02/20 19:45 BP 116 / 79; Pulse 13bpm; Resp 16bpm; Pulse Ox 98% 2 lpm Nasal Cannula; me1 me1
--- NOTE | 2024-02-21 23:26 | EDPHYS ---
Physician Documentation [facility] Name: Carrie Webb Age: 68 yrs Sex: Female : 1955 Arrival Date: 02/21/2024 Time: 18:34 Bed 16 Private MD: ED Physician Ayaan Coombs HPI: 02/20 19:00 This 68 yrs old Female presents to ER via EMS with complaints of General Weakness. cp 19:00 The patient's problem is reported as weakness, that is generalized. cp 19:00 Onset: The symptoms/episode began/occurred at an unknown time. Duration: The episode is cp continuous. Associated signs and symptoms: Pertinent negatives: abdominal pain, chest pain, diarrhea, vomiting. Severity of symptoms: in the emergency department the symptoms are unchanged despite home interventions. Patient's baseline: Neuro: alert and fully oriented, Motor: bed bound, no use of lower extremities, Ambulation: unable to walk, is bedridden, Speech: normal. Historical: - Allergies: 18:46 PENICILLINS; aa5 - PMHx: 18:46 Cellulitis; chronic back pain (Lymphadema); Diabetes - NIDDM; Hypertension; Lymphadema; aa5 18:46 Wounds to legs; Sifuentes catheter; aa5 - Immunization history:: Adult Immunizations unknown. - Infectious Disease History:: Denies. - Social history:: Smoking status: Patient reports the use of cigarette tobacco products, smokes one pack cigarettes per day. ROS: 19:05 Constitutional: Positive for poor PO intake, Negative for body aches, chills, fever, cp 19:05 Eyes: Negative for injury, pain, redness, and discharge, cp 19:05 ENT: Negative for drainage from ear(s), ear pain, sore throat, difficulty swallowing, difficulty handling secretions, 19:05 Cardiovascular: Negative for chest pain, edema, 19:05 Respiratory: Negative for cough, wheezing, 19:05 Abdomen/GI: Negative for abdominal pain, vomiting, diarrhea, constipation, 19:05 Skin: Positive for open wounds to lower legs, 19:05 Neuro: Positive for weakness, Negative for altered mental status, headache, 19:05 All other systems are negative, Exam: 19:10 Constitutional: The patient appears in no acute distress, alert, awake, cp non-diaphoretic, non-toxic, well developed, well nourished, 19:10 Head/Face: Normocephalic, atraumatic. cp 19:10 Eyes: Periorbital structures: appear normal, Pupils: equal, round, and reactive to light and accomodation, Extraocular movements: intact throughout, Conjunctiva: normal, no exudate, no injection, Sclera: no appreciated abnormality, Lids and lashes: appear normal, bilaterally, 19:10 ENT: External ear(s): are unremarkable, Nose: is normal, Mouth: Lips: dry, Oral mucosa: pink and intact, moist, Posterior pharynx: Airway: no evidence of obstruction, patent, 19:10 Neck: ROM/movement: pain, is not appreciated, Meningeal signs: are not present, nuchal rigidity, is not appreciated, 19:10 Chest/axilla: Inspection: normal, Palpation: is normal, no crepitus, no tenderness, 19:10 Cardiovascular: Rate: tachycardic, Rhythm: regular, Edema: is not appreciated, JVD: is not appreciated, 19:10 Respiratory: the patient does not display signs of respiratory distress, Respirations: labored breathing, is not present, shallow respirations, that is mild, Breath sounds: are clear throughout, no decreased breath sounds, no stridor, no wheezing, 19:10 Abdomen/GI: Inspection: abdomen appears normal, Bowel sounds: active, all quadrants, Palpation: abdomen is soft and non-tender, in all quadrants, 19:10 Skin: open wounds noted to lower legs with purulent drainage. 19:10 Neuro: Orientation: to person, place, situation, Mentation: able to follow commands, Motor: moves upper extremities without restriction, no movement of lower extremities, 19:10 CT study not indicated or reported. Reason for not performing CT: ct head not indicated cp 20:30 ECG was reviewed by the Attending Physician. cp 23:23 ECG was reviewed by the Attending Physician. cp Vital Signs: 18:38 BP 118 / 78; Pulse 107; Resp 14 S; Temp 98.6(O); Pulse Ox 98% on R/A; aa5 19:00 BP 114 / 91; Pulse 144; Resp 19; Pulse Ox 99% on 2 lpm NC; me1 19:45 BP 116 / 79; Pulse 113; Resp 16; Pulse Ox 98% on 2 lpm NC; me1 20:30 BP 122 / 90; Pulse 120; Resp 21; Pulse Ox 98% on 2 lpm NC; me1 21:00 BP 100 / 70; Pulse 101; Resp 18; Pulse Ox 94% on 2 lpm NC; me1 22:00 BP 127 / 58; Pulse 97; Resp 20; Pulse Ox 100% ; me1 23:00 BP 96 / 77; Pulse 96; Resp 17; Pulse Ox 100% on R/A; me1 23:45 BP 103 / 73; Pulse 114; Resp 20; Pulse Ox 100% on R/A; me1 0414 00:00 BP 107 / 74; Pulse 116; Resp 18; Pulse Ox 100% on R/A; cm10 00:30 BP 101 / 77; Pulse 116; Resp 18; Pulse Ox 100% on R/A; cm10 00:45 BP 105 / 67; Pulse 103; Resp 16; Pulse Ox 100% on R/A; cm10 MDM: 02/20 18:47 Patient medically screened. cp 19:00 Differential diagnosis: metabolic disorder, sepsis, pneumonia, osteomyelitis. cp 23:30 Data reviewed: vital signs, nurses notes, lab test result(s), EKG, radiologic studies, cp CT scan, plain films. 23:30 Consideration of Admission/Observation Patient was admitted/placed on observation. cp Management of patient was discussed with the following: Hospitalist: DR Owusu will admit after discussion. I considered the following discharge prescriptions or medication management in the emergency department Medications were administered in the Emergency Department. See MAR. Independent interpretation of the following test(s) in the Emergency Department EKG: See my EKG interpretation above. Care significantly affected by the following chronic conditions: Diabetes, Hypertension. Counseling: I had a detailed discussion with the patient and/or guardian regarding the historical points, exam findings, and any diagnostic results supporting the discharge/admit diagnosis, lab results, radiology results, the need for further work-up and treatment in the hospital. 02/20 18:58 Order name: Blood Culture Adult (2) cp 02/20 18:58 Order name: CBC with Diff; Complete Time: 20:24 cp 02/20 20:24 Interpretation: Normal except: WBC 14.30; RBC 5.48; HGB 16.6; HCT 49.9; RDW 15.7; KATHERYN% cp 80.6; NEUT A 11.5; LYM% 13.2. 02/20 18:58 Order name: CMP; Complete Time: 20:36 cp 02/20 20:37 Interpretation: Normal except: NA 129; K 2.6; CL 87; GLUC 157; BUN 20; GFR 73; AST 72; cp ALK 129; BILIT 2.1; CA 8.3; ALB 2.4; GLOB 4.0; A/G 0.6. 02/20 18:58 Order name: Lactate w/ 2H reflex if indic.; Complete Time: 20:36 cp 02/20 20:37 Interpretation: Abnormal: LAC 2.6. cp 02/20 18:58 Order name: Protime (+inr); Complete Time: 20:24 cp 02/20 18:58 Order name: Ptt, Activated; Complete Time: 20:24 cp 02/20 18:58 Order name: Troponin High Sensitivity; Complete Time: 20:36 cp 02/20 18:58 Order name: SARS RAPID; Complete Time: 20:24 cp 02/20 18:58 Order name: Wound Culture cp 02/21 00:09 Order name: Thyroid Stimulating Hormone EDMS 02/21 00:09 Order name: C-Reactive Protein EDMS 02/21 00:09 Order name: C-Reactive Protein EDMS 02/21 00:09 Order name: CBC with Automated Diff EDMS 02/21 00:09 Order name: CBC with Automated Diff EDMS 02/21 00:09 Order name: CBC with Automated Diff EDMS 02/21 00:09 Order name: CBC with Automated Diff EDMS 02/21 00:09 Order name: Comprehensive Metabolic Panel EDMS 02/21 00:09 Order name: Comprehensive Metabolic Panel EDMS 02/21 00:09 Order name: Comprehensive Metabolic Panel EDMS 02/21 00:09 Order name: Comprehensive Metabolic Panel EDMS 02/21 00:09 Order name: Comprehensive Metabolic Panel EDMS 02/21 00:09 Order name: Magnesium EDMS 02/21 00:09 Order name: Magnesium EDMS 02/21 00:09 Order name: Magnesium EDMS 02/21 00:09 Order name: Magnesium EDMS 02/21 00:09 Order name: Vancomycin Level Trough EDMS 02/21 00:09 Order name: Vancomycin Level Trough EDMS 02/21 00:39 Order name: Lactate Sepsis 2 HR Follow-up EDMS 02/20 18:58 Order name: Chest Single View XRAY; Complete Time: 22:56 cp 02/20 20:41 Order name: XRAY Tib Fib LEFT; Complete Time: 22:56 cp 02/20 20:41 Order name: XRAY Tib Fib RIGHT; Complete Time: 22:56 cp 02/20 20:41 Order name: CT Chest, Abdomen, Pelvis - W/Contrast; Complete Time: 22:56 cp 02/21 00:10 Order name: Lower Extremity Wo EDPA 02/21 00:10 Order name: Thyroid Para Parotid Gland EDPA 02/20 18:58 Order name: EKG; Complete Time: 18:59 cp 02/20 23:59 Order name: Social Service Consult [facility] 02/21 00:09 Order name: Physical Therapy Consult [facility] 02/21 00:10 Order name: Occupational Therapy Consult [facility] 02/20 18:58 Order name: Accucheck; Complete Time: 20:38 cp 02/20 18:58 Order name: Cardiac monitoring; Complete Time: 20:21 cp 02/20 18:58 Order name: EKG - Nurse/Tech; Complete Time: 20:38 cp 02/20 18:58 Order name: IV Saline Lock - Large Bore; Complete Time: 19:37 cp 02/20 18:58 Order name: Labs collected and sent; Complete Time: 19:37 cp 02/20 18:58 Order name: O2 Per Protocol; Complete Time: 19:37 cp 02/20 18:58 Order name: O2 Sat Monitoring; Complete Time: 19:37 cp 02/20 18:58 Order name: Vital Signs; Complete Time: 19:37 cp 02/20 23:01 Order name: EKG - Nurse/Tech; Complete Time: 23:20 cp EC:30 Rate is 137 beats/min. Rhythm is regular. MN interval is normal. QRS interval is cp normal. QT interval is normal. T waves are Inverted in leads II, III, aVF. Interpreted by me. Reviewed by me. 23:23 Rate is 97 beats/min. Rhythm is irregular. MN interval is normal. QRS interval is cp normal. QT interval is normal. T waves are Inverted in leads I, II, aVL. Interpreted by me. Reviewed by me. Administered Medications: 19:44 Drug: NS 0.9% IV 1000 ml IV at 999 ml/hr Per protocol Route: IV; Rate: 999 ml/hr; Site: [facility] left antecubital; 21:38 Follow up: Response: No adverse reaction; IV Status: Completed infusion; IV Intake: me1 1000ml 21:06 Drug: vancoMYCIN IVPB 1 grams IVPB once over 2 hrs Route: IVPB; Infused Over: 2 hrs; rv Site: left upper arm; 23:06 Follow up: Response: No adverse reaction; IV Status: Completed infusion me1 21:06 Drug: NS 0.9% IV 1000 ml IV at 9999 ml/hr Per protocol; 1000 mL bolus Route: IV; Rate: rv 9999 ml/hr; Site: right hand; 02/21 00:04 Follow up: Response: No adverse reaction; IV Status: Completed infusion; IV Intake: me1 1000ml 02/20 22:10 Drug: Potassium Chloride IV 20 mEq IV at calculated rate once; administer over 1-2 pf1 hours Route: IV; Rate: calculated rate; Site: left upper arm; 02/21 00:04 Follow up: Response: No adverse reaction; IV Status: Completed infusion me1 00:04 Drug: Potassium PO Effervescent Tablet 50 mEq PO once; dissolve in 4 ounces of water or me1 juice Route: PO; 00:04 Drug: Cefepime IVPB 1 grams IVPB at 200 ml/hr once over 30 mins; (mix in NS 100 mL) me1 Route: IVPB; Rate: 200 ml/hr; Infused Over: 30 mins; Site: left upper arm; 00:32 Follow up: Response: No adverse reaction; IV Status: Completed infusion me1 00:04 Drug: Ondansetron IVP 4 mg IVP once; over 2 minutes Route: IVP; Site: left upper arm; sd1 00:33 Follow up: Response: No adverse reaction me1 Disposition: 07:34 Co-signature as Attending Physician, Ayaan Coombs MD I reviewed the patient's care rt provided by the Advanced Practice Provider and agree with the diagnosis and treatment plan. Disposition Summary: 02/21/24 23:25 Hospitalization Ordered Notes: Hospitalization Status: Inpatient Admission cp Provider: Kevin Owusu cp Condition: Stable cp Problem: new cp Symptoms: have improved cp Bed/Room Type: Standard cp Location: Intensive Care Unit(02/22/24 00:20) [facility] Room Assignment: 4-(02/22/24 00:20) mc5 Diagnosis - Sepsis, unspecified organism cp - Hypokalemia cp Forms: - Medication Reconciliation Form cp - SBAR form cp - Leadership Thank You Letter cp Signatures: Dispatcher [employer] EDYashira Mascorro, RN RN aa5 Juanito Luu PA PA cp Vicente, Ronaldo RN RN Ayaan West MD MD rt Joleen Foreman RN RN pf1 Ama Perez RN RN me1 Meghana Guajardo mc5 Corrections: (The following items were deleted from the chart) 02/20 18:59 18:59 BLOOD CULTURE*+BA.LAB.BRZ ordered. EDMS EDMS 18:59 18:59 COMPREHENSIVE METABOLIC PANEL+C.LAB.BRZ ordered. EDMS EDMS 18:59 18:59 LACTATE+C.LAB.BRZ ordered. EDMS EDMS 18:59 18:59 PROTIME (+INR)+COAG.LAB.BRZ ordered. EDMS EDMS 18:59 18:59 PTT, ACTIVATED+COAG.LAB.BRZ ordered. EDMS EDMS 18:59 18:59 Troponin High Sensitivity+C.LAB.BRZ ordered. EDMS EDMS 18:59 18:59 SARS-COV-2 Antigen Rapid+I.LAB.BRZ ordered. EDMS EDMS 18:59 18:59 Wound Culture+BA.LAB.BRZ ordered. EDMS EDMS 19:37 18:59 CBC+H.LAB.BRZ ordered. EDMS EDMS 20:41 20:41 Tib Fib Right+RAD.RAD.BRZ ordered. EDMS EDMS 20:41 20:41 Chest Abdomen Pelvis W Con+CT.RAD.BRZ ordered. EDMS EDMS 02/21 00:20 02/20 23:25 Telemetry/MedSurg (Inpatient) cp 5 02/21 00:20 02/20 23:25 cp 5
[2024-02-21] MEDS ORDERED: NA CHLORIDE 0.9% 100 ML ONE (23:44)
[2024-02-21] MEDS ORDERED: CEFEPIME 1 GM/VIAL ONE (23:44)
[2024-02-21] MEDS ORDERED: POTASSIUM 25 MEQ EFFERV TAB ONE (23:44)
--- NOTE | 2024-02-21 23:45 | P.HP ---
Certification for Inpatient With expected LOS: >2 Midnights Patient will require the following post-hospital care: Home Health Services Practitioner: I am a practitioner with admitting privileges, knowledge of patient current condition, hospital course, and medical plan of care. Services: Services provided to patient in accordance with Admission requirements found in Title 42 Section 412.3 of the Code of Federal Regulations Patient History Date of Service: 02/22/24 Reason for admission: weakness History of Present Illness: 68-year-old female with HTN/DM/obesity/COPD/chronic lower extremity lymphedema/chronic back pain with spinal stenosis/bedbound status due to chronic back pain and bilateral lower extremity lymphedema, was brought in by the spouse today because of increasing weakness, lethargy as well as decreased p.o. intake since the last 10 days. No reported fever or chills. Spouse stated patient weakness became more concerning because it has been progressive. On arrival in the ED vital signs were stable, afebrile, laboratory workup shows WBC of 14,000 with left shift, hemoglobin elevated at 16.6, BMP shows normal creatinine with elevated BUN of 20, alkaline phosphatase and AST mildly elevated but normal ALT, lactic acid of 2.6 chest x-ray shows no acute pulmonary infiltrate, history of bilateral tibia-fibula show mottled appearance of the bones worrisome for osteoporosis versus chronic osteomyelitis. CT of the abdomen and pelvics shows chronic indwelling Sifuentes, cholelithiasis without evidence of cholecystitis, spondylosis of the lumbar spine with spinal stenosis, 2.2 cm thyroid nodule and recommend nonemergent thyroid ultrasound. There is also a 5 cm fatty mass intact atrial septum suspect possible lipomatous hypertrophy approximately 2.2 centimeter thyroid nodule not completely visualized in the yqkvx-ru-cupe Allergies Penicillins Allergy (Verified 01/16/19 01:48) Hives/Rash Home Medications: Gabapentin 600 mg PO TID 01/16/19 Metformin ER [Glucophage ER*] 250 mg PO DAILY 01/16/19 Tramadol HCl [Ultram] 100 mg PO TID 01/16/19 Ciprofloxacin HCl [Cipro] 500 mg PO BID 10 Days #20 tab 11/01/23 - Past Medical/Surgical History Diabetic: Yes -: Diabetes -: HTN -: Diabetic Neuropathy -: Neuropathy -: Sleep apnea -: PVD -: Atherosclerosis -: Osteoarthritis -: Tobacco abuse -: Left knee replacement -: Right knee surgery x2 -: Hysterectomy 2001 -: x2 -: Right breast lumpectomy - benign Psychosocial/ Personal History: Patient lives at home with her - Family History Mother -: Diabetes Father -: Heart disease Brother -: Heart disease - Social History Smoking Status: Current every day smoker Counseled patient to stop smoking for: less than 10 minutes Smoking therapy provided: Yes Alcohol use: No CD- Drugs: No Caffeine use: Yes Place of Residence: Home Review of Systems General: Weakness, Malaise Integumentary: Rash Neurological: Weakness Physical Examination - Physical Exam General: In no apparent distress, Oriented x3, Cooperative HEENT: Atraumatic, Normocephalic, PERRLA Neck: Supple, 2+ carotid pulse no bruit, JVD not distended Respiratory: Clear to auscultation bilaterally, Normal air movement Cardiovascular: No edema, Regular rate/rhythm, Normal S1 S2 Gastrointestinal: Normal bowel sounds, Soft and benign, Non-distended, No ascites, No tenderness Musculoskeletal: No tenderness, Erythema (lymphedema b/l LE with open wounds and ulcers), Other (b/l gutiérrez ulcers with dsg over , desquamnted skins over LE ) Neurological: Normal strength at 5/5 x4 extr, Sensation intact, Cranial nerves 3-12 intact Urinary: Sifuentes catheter - Studies Laboratory Data (last 24 hrs) 02/21/24 02/21/24 02/21/24 19:25 19:25 19:25 WBC 14.30 H Hgb 16.6 H Hct 49.9 H Plt Count 154 PT 13.0 H INR 1.19 APTT 29.3 Sodium 129 L Potassium 2.6 L* BUN 20 H Creatinine 0.87 Glucose 157 H Total Bilirubin 2.1 H AST 72 H ALT 36 Alkaline Phosphatase 129 H Assessment and Plan - Problems (Diagnosis) (1) Cellulitis of both lower extremities Onset Date: 12/03/16 Current Visit: No Status: Acute (2) Chronic acquired lymphedema Current Visit: No Status: Acute (3) DM type 2 (diabetes mellitus, type 2) Current Visit: No Status: Acute Qualifiers: Diabetes mellitus skilled nursing insulin use: without skilled nursing use Diabetes mellitus complication status: with diabetic arthropathy (4) Sepsis Current Visit: No Status: Acute (5) COPD (chronic obstructive pulmonary disease) Current Visit: No Status: Chronic Qualifiers: COPD type: chronic bronchitis (6) Diabetes Current Visit: No Status: Chronic Qualifiers: Diabetes mellitus type: type 2 Diabetes mellitus skilled nursing insulin use: without skilled nursing use Diabetes mellitus complication status: with neurologic complications Diabetes mellitus complication detail: with unspecified neuropathy Qualified Code(s): E11.40 - Type 2 diabetes mellitus with diabetic neuropathy, unspecified (7) Hypertension Current Visit: No Status: Chronic Qualifiers: Hypertension type: essential hypertension (8) Tobacco abuse Current Visit: No Status: Chronic - Plan Impression Acute sepsis Bilateral lower extremity wounds with cellulitis Bilateral tibia-fibula osteomyelitispresumed Hypertension Diabetes mellitus Neurogenic bladder with chronic Sifuentes Lumbar spinal stenosiswith bilateral lower extremity weakness Bedbound status Diabetic neuropathy Acute on chronic hyponatremia Hypokalemia Acute kidney injury with dehydration Chronic tobacco use/COPDstable Plan Will admit to inpatient and Managed for the following 1 Acute sepsis with chronic bilateral lymphedema and cellulitisobtain MRI to rule out chronic osteomyelitis Start empirical antibiotics with Vanco and cefepime Follow blood cultures Obtain CRP as well as ESR 2 Acute kidney injury/hyponatremia/hyperkalemiastart IV fluids NS plus KCl Replace potassium Follow magnesium Monitor BUN and creatinine trend 3 lumbar spinal stenosis with bedbound statuscontinue frequent turning PT and OT eval 4 Diabetes mellitusinsulin sliding scale with Accu-Chek, resume home meds 5 Hypertensioncontrolled 6 Thyroid noduleobtain thyroid ultrasound as outpatient 7 Neurogenic bladdercontinue Sifuentes, s/p changed by spouse last week , will ask team to exchange while inpatient 8 DVT prophylaxissubcutaneous lipid 9 advance directivefull code 10 interatrial lipomatosis hypertrophycontinue to monitor 11 chronic tobacco usecessation advised, add nicotine patch Plan to discharge in: Greater than 2 days - Advance Directives Does patient have a Living Will: Yes Does patient have a Durable POA for Healthcare: Yes Physician Review: Patient Assessed, Agree with Above Assessment and Plan
[2024-02-21] MEDS ORDERED: ONDANSETRON 4 MG/2 ML VIAL ONE (23:47)
[2024-02-22] MEDS ORDERED: ALBUTEROL 2.5 MG/3 ML NEB SOL NEB PRN ×2 (00:01→07:22)
[2024-02-22] MEDS ORDERED: HYDRALAZINE HCL 20 MG/ML VIAL IV PRN (00:01)
[2024-02-22] MEDS ORDERED: LORAZEPAM 0.5 MG TABLET PO PRN (00:01)
[2024-02-22] MEDS ORDERED: IPRATROPIUM BROM 0.5MG/2.5ML NEB PRN (00:01)
[2024-02-22] MEDS ORDERED: ACETAMINOPHEN 500 MG TAB PO PRN (00:01)
[2024-02-22] MEDS ORDERED: D50W 25 GM/50 ML SYRINGE IV PRN (00:02)
[2024-02-22] MEDS ORDERED: GLUCAGON 1 MG/VIAL IM PRN (00:02)
[2024-02-22] MEDS ORDERED: VANCOMYCIN 1 GM in NA CHLORIDE 0.9% 250 ML IVPB SCH (00:03)
[2024-02-22] MEDS ORDERED: D10W 125 ML IV PRN (00:21)
[2024-02-22] MEDS ORDERED: NA CHLORIDE 0.9% 100 ML ONE ×2 (01:59→17:04)
[2024-02-22] MEDS ORDERED: VANCOMYCIN 500 MG/VIAL ONE (01:59)
[2024-02-22] MEDS: VANCOMYCIN 500 MG in NA CHLORIDE 0.9% 100 ML IVPB ONE (02:00)
[2024-02-22] MEDS: NS KCL 20MEQ 20 MEQ/1,000 ML BAG IV SCH (02:01)
[2024-02-22] MEDS ORDERED: TRAMADOL HCL 50 MG TAB PO PRN (07:03)
[2024-02-22] MEDS: INSULIN REGULAR (HUMAN) 100 UNIT/ML SQ SCH (07:30)
[2024-02-22 07:36] LABS: Albumin 2.1 g/dL (3.4-5.0); Albumin/Globulin Ratio 0.6 (1.1-1.8); Anion Gap 14.6 mEq/L (5.0-15.0); Bilirubin Total 1.9 mg/dL (0.2-1.0); C-Reactive Protein 14.7 mg/L (<3.00); Globulin 3.4 g/dL (2.3-3.5); Protein, Total 5.5 g/dL (6.4-8.2)
[2024-02-22 07:37] LABS: Potassium 3.6 mEq/L (3.5-5.1)
[2024-02-22] MEDS ORDERED: NICOTINE 21 MG/PAT TD ONE (07:58)
[2024-02-22] MEDS ORDERED: ASPIRIN EC 81 MG TAB PO ONE (07:58)
[2024-02-22] MEDS: CEFEPIME 1 GM in NA CHLORIDE 0.9% 100 ML IV SCH (08:02)
[2024-02-22] MEDS: NICOTINE 21 MG/PAT TD SCH (08:03)
[2024-02-22] MEDS: ENOXAPARIN 40 MG/0.4 ML SQ SCH (08:03)
[2024-02-22] MEDS: ASPIRIN EC 81 MG TAB PO SCH (08:03)
[2024-02-22 08:10] LABS: STOOL CONSISTENCY Liquid/Semi-Solid
[2024-02-22 08:11] LABS: C.diff Antigen/Toxin Ag neg : Tox neg (NEG : NEG); CDIFF INTERNAL NEG CONTROL White Background (WHITE BKGD)
[2024-02-22] MEDS: CEFEPIME 2 GM in NA CHLORIDE 0.9% 100 ML IV SCH (09:00)
--- NOTE | 2024-02-22 09:25 | RAD REPORT ---
EXAM DESCRIPTION: US Thyroid Para Parotid Gland CLINICAL HISTORY: Thyroid nodule COMPARISON: [id number] dated 12/20/2015; Chest Abdomen Pelvis W Cont dated 02/21/2024 TECHNIQUE: Sonographic grayscale and color flow images of the thyroid gland were obtained. FINDINGS: Thyroid parenchyma is somewhat heterogeneous. The isthmus measures 5 mm scratch in thickne ss. Right thyroid lobe measures 3.7 x 2.4 x 2.2 cm. Left thyroid lobe measures 4.7 x 2.7 x 2.4 cm. Nodules: Isthmus: None Right lobe: 1 right mid thyroid lobe 2.6 x 2.2 x 2.3 cm spongiform wider than tall nodule with no fauzia cifications, TR 1. Left lobe: 2 adjacent solid, heterogeneous but predominantly isoechoic to hyperechoic mid to lower po le nodules, 1 measuring 2.3 x 1.8 x 1.8 cm, and the other measuring 2.6 x 1.7 x 2.0 cm. No calcificat ions. Both are TR 3 category. IMPRESSION: Bilateral thyroid nodules, up to TR 3 category on the left, deserving sonographic follow -up in 12 months.
[2024-02-22 09:36] LABS: Thyroid Stimulating Hormone 1.51 uIU/mL (0.358-3.740)
[2024-02-22 09:37] LABS: Magnesium 1.6 mg/dL (1.6-2.4)
--- NOTE | 2024-02-22 10:42 | P.PN ---
Date of Service: 02/22/24 Subjective: C/O low back pain worsening of lower extremity wounds for months reports bedbound at home for around 5 years ROS: 10 point ROS as noted above, otherwise negative Physical exam GEN: Alert, oriented, NAD HEENT: Normal conjunctiva, sclera anicteric CV: Regular rate and rhythm, no edema Pulm: Nonlabored respirations on room air ABD: Soft, nontender, nondistended MSK: No joint tenderness Integumentary: No rashes, wounds to ISABEL lower extremities with dressings in place Neuro: Normal speech, normal affect Vitals reviewed Problem List Severe sepsis secondary to cellulitis of bilateral lower extremities complicated with chronic lymphedema Frequent paroxysmal SVT 5 cm fatty mass interatrial septum Hypokalemia, hyponatremia Diabetes mellitus type [id number] History of COPD Hypertension Chronic back pain-bedbound at baseline with spondylosis/spinal stenosis Bilateral thyroid nodules Plan Severe sepsis secondary to cellulitis of bilateral lower extremities complicated with chronic lymphedema Continue broad-spectrum antibiotics, follow-up blood cultures Tib-fib x-rays of bilateral lower extremities concerning for possible severe osteoporosis versus osteomyelitis MRI lower extremities ordered ID consultation in place Frequent paroxysmal SVT 5 cm fatty mass interatrial septum Could represent lipomatosis hypertrophy or lipoma Echocardiogram, cardiology consult in place Continue to monitor on telemetry, replace electrolytes according to protocol Attempt to obtain EKG during bout of SVT, happening a few times per hour lasting only for couple minutes Appears to be SVT, also considering possibility of atrial fibrillation/atrial flutter Blood pressure soft, consider initiating beta-toro when blood pressure can tolerate Hypokalemia, hyponatremia Improving with IV fluids, electrolyte replacement Monitor chemistry daily along with magnesium/phosphorus Diabetes mellitus type [id number] ACHS Accu-Chek, sign scale insulin, A1c for tomorrow morning History of COPD As needed nebulizer treatments Hypertension Blood pressure soft at this time, hold oral antihypertensives Chronic back pain-bedbound at baseline with spondylosis/spinal stenosis Per patient/family patient is been bedbound for the last approximately 5 years Continue as needed pain medication for back pain PT consultation Bilateral thyroid nodules Bilateral thyroid nodules, up to TR 3 category on the left, deserving sonographic follow-up in 12 months. VTE: Lovenox Code: Full Dispo: 2+ days Time Spent Managing Pts Care (In Minutes): 35
[2024-02-22 10:50] LABS: Absolute Basophils 0.1 K/uL (0-0.5); Absolute Lymphocytes (CBC) 2.4 K/uL (0.7-4.9); Absolute Monocytes 1.1 K/uL (0.1-1.3); Absolute Neutrophil 13.9 K/uL (1.8-8.0); Basophils % 0.8 % (0-1.3); Eosinophils % 0.2 % (0-4.4); Hematocrit 43.6 % (36.0-45.0); Hemoglobin 14.3 g/dL (12.0-15.0); Lymphocytes % 13.9 % (15.3-44.8); MCH 29.5 pg (27.0-35.0); MCHC 32.8 g/dL (32.0-36.0); MPV 9.9 fL (7.6-11.3); Neutrophils % 79.1 % (41.7-73.7); Nucleated Red Blood Cells % 0.1 % (0-0); Platelets 70 thou/uL (152-406); RBC Red Blood Cell Count 4.84 M/uL (3.86-4.86); Red Cell Distribution Width 15.6 % (12.1-15.2)
[2024-02-22] MEDS: VANCOMYCIN 750 MG in NA CHLORIDE 0.9% 150 ML IVPB ONE (11:06)
[2024-02-22 11:10] LABS: Blood Morphology Comment NOT SEEN (NOT SEEN); Platelet Estimate DECR; White Blood Cell Scan OK (OK)
[2024-02-22] MEDS: TRAMADOL HCL 50 MG TAB PO PRN (12:45)
[2024-02-22] MEDS: POTASSIUM 25 MEQ EFFERV TAB PO ONE (12:46)
[2024-02-22] MEDS: MAGNESIUM SULFATE 1 gm IVPB 1 GM/100 ML BAG IV ONE (12:46)
[2024-02-22] MEDS: ONDANSETRON 4 MG/2 ML VIAL IV PRN (14:42)
[2024-02-22] MEDS ORDERED: CEFEPIME 2 GM VIAL ONE (17:04)
--- NOTE | 2024-02-22 18:05 | CON ---
Date of Consultation: 02/22/2024 Reason For Consultation: Questionable intra-atrial mass. History Of Present Illness: 68-year-old female, history of diabetes, hypertension, COPD, obesity, ch ronic back pain, brought in because of increasing weakness, lethargy, and generalized fatigue. No sh ortness of breath, chest pain or cough or fever. CT scan of the chest commented on the questionable intra-atrial mass that is about 5 cm in size. The patient denies having any cardiac history before. Past Medical History: As outlined above in the HPI. Medications: Refer to reconciliation sheet for detailed list. Allergies: PENICILLIN. Family History: No premature coronary artery disease or cancer. Social History: She is an active smoker. Does not drink, or use any drugs. Review of Systems: All systems reviewed and they were negative except as mentioned in the HPI. Physical Examination: Vital Signs: Reviewed. Head and Neck: Pupils are equal, reactive to light. Intact eye movements. No JVD. No cervical lym phadenopathy. Neck is supple. Thyroid is not enlarged. Lungs: Decreased breathing sounds. No accessory muscle use or muscle retraction. Heart: Regular rate and rhythm. No extra sounds. Abdomen: Soft, nontender. Bowel sounds positive. No organomegaly. No mass or hernia. No rigidity or rebound. Extremities: No edema, clubbing, or cyanosis. Intact pulses. Skin: No rash. No nodule. Neurologic: Alert, awake. No acute focal deficits appreciated. Lymph Nodes: No cervical or axillary lymphadenopathy. Investigations: BUN 20, creatinine 0.6. Troponin is negative and white blood cell count 17,000, hem oglobin 14.3. Assessment And Recommendations: 1.Questionable intra-atrial mass on CT scan. Obtain an echocardiogram. Differential diagnosis woul d include myxoma. Further recommendation will be made after the echocardiogram. 2.Elevated white count, generalized fatigue, probably an infection and probably source is cellulitis of lower extremities, on wide-spectrum antibiotics. Recommend to obtain an arterial Doppler of lowe r extremities to evaluate for peripheral vascular disease as the patient is a diabetic. 3.Hypokalemia. This is replaced. Thank you for the consult. /DEE Voice ID: [id number] Report ID: [id number]
[2024-02-22 19:07] LABS: Specific Gravity > 1.030 (1.005-1.030); Sqamous Epithelial <5 /HPF (None Seen); Transitional Epithelial <5 /HPF (None Seen); Urine Bacteria None Seen /HPF (<20); Urine Bilirubin 1+ (Negative); Urine Blood 1+ (Negative); Urine Clarity Turbid (Clear); Urine Color Yellow (Yellow); Urine Culture Reflex Order REFLEXED; Urine Glucose NEGATIVE (Negative); Urine Ketones TRACE (Negative); Urine Micro Reflex YN NO BILL MICROSCOPIC; Urine Mucus Slight /HPF (None Seen); Urine Nitrite NEGATIVE (Negative); Urine Protein 1+ (Negative); Urine RBC 21-50 /HPF (None Seen); Urine Urobilinogen 2+ (Normal); Urine WBC >50 /HPF (<5); Urine WBC Clump Occasional /HPF (None Seen); Urine pH 6.5 (5.0-7.0)
[2024-02-22] MEDS: VANCOMYCIN 1.5 GM in NA CHLORIDE 0.9% 500 ML IVPB SCH (19:29)
[2024-02-23] MEDS ORDERED: NA CHLORIDE 0.9% 100 ML ONE ×3 (00:01→16:14)
[2024-02-23] MEDS: MORPHINE 2 MG/ML SYR IV PRN (00:18)
[2024-02-23] MEDS ORDERED: VANCOMYCIN 1.5 GM in NA CHLORIDE 0.9% 500 ML IVPB SCH (02:00)
[2024-02-23 04:51] LABS: Absolute Basophils 0.1 K/uL (0-0.5); Absolute Eosinophils 0.1 K/uL (0-0.5); Absolute Lymphocytes (CBC) 1.6 K/uL (0.7-4.9); Absolute Monocytes 0.6 K/uL (0.1-1.3); Basophils % 0.8 % (0-1.3); Hematocrit 40.6 % (36.0-45.0); Hemoglobin 13.6 g/dL (12.0-15.0); Lymphocytes % 15.2 % (15.3-44.8); MCH 30.5 pg (27.0-35.0); MCHC 33.4 g/dL (32.0-36.0); MCV 91.5 fL (80-100); Monocytes % 5.7 % (3.3-12.3); Neutrophils % 77.3 % (41.7-73.7); Nucleated Red Blood Cells % 0.2 % (0-0); Platelets 100 thou/uL (152-406); RBC Red Blood Cell Count 4.44 M/uL (3.86-4.86); Red Cell Distribution Width 15.7 % (12.1-15.2)
[2024-02-23 05:06] LABS: Anion Gap 10.8 mEq/L (5.0-15.0); Bilirubin Total 1.5 mg/dL (0.2-1.0); Potassium 3.8 mEq/L (3.5-5.1)
[2024-02-23 05:07] LABS: Albumin/Globulin Ratio 0.6 (1.1-1.8); Globulin 3.2 g/dL (2.3-3.5); Magnesium 1.8 mg/dL (1.6-2.4); Protein, Total 5.2 g/dL (6.4-8.2)
--- NOTE | 2024-02-23 09:37 | P.CNS ---
Date of Consult: 02/23/24 Reason for Consult: osteomyelitis Chief Complaint: weakness History of Present Illness: "68-year-old female with HTN/DM/obesity/COPD/chronic lower extremity lymphedema/chronic back pain with spinal stenosis/bedbound status due to chronic back pain and bilateral lower extremity lymphedema, was brought in by the spouse today because of increasing weakness, lethargy as well as decreased p.o. intake since the last 10 days" Infectious disease consulted for osteomyelitis. Allergies Penicillins Allergy (Verified 01/16/19 01:48) Hives/Rash Home medications list reviewed: Yes Home Medications: Gabapentin 600 mg PO TID 01/16/19 Metformin ER [Glucophage ER*] 250 mg PO DAILY 01/16/19 Tramadol HCl [Ultram] 100 mg PO TID 01/16/19 Ciprofloxacin HCl [Cipro] 500 mg PO BID 10 Days #20 tab 11/01/23 - Past Medical/Surgical History Diabetic: Yes -: Diabetes -: HTN -: Diabetic Neuropathy -: Neuropathy -: Sleep apnea -: PVD -: Atherosclerosis -: Osteoarthritis -: Tobacco abuse -: Left knee replacement -: Right knee surgery x2 -: Hysterectomy 2001 -: x2 -: Right breast lumpectomy - benign Psychosocial/ Personal History: Patient lives at home with her - Family History Mother Medical History: Diabetes Father Medical History: Heart disease Brother Medical History: Heart disease - Social History Smoking Status: Current every day smoker Alcohol use: No CD- Drugs: No Caffeine use: Yes Place of Residence: Home Review of Systems General: Weakness Integumentary: Other (BLE venous stasis ulcers) Physical Examination Temp Pulse Resp BP Pulse Ox 97.5 F 82 12 94/62 100 02/23/24 07:57 02/23/24 07:57 02/23/24 07:57 02/23/24 07:57 02/23/24 07:57 General: In no apparent distress, Oriented x3 HEENT: Atraumatic, Normocephalic Respiratory: Clear to auscultation bilaterally, Normal air movement, Other (unlabored respirations on room air) Cardiovascular: Regular rate/rhythm, Edema (BLE) Gastrointestinal: Normal bowel sounds, Soft and benign, No tenderness Integumentary: Venous stasis ulcer (BLE. ), Other (Lymphedema ) Urinary: Sifuentes catheter (chronic ) Laboratory data -Reviewed Microbiology data -Reviewed Imagings Data: -Reviewed Conclusions/Impression: Problem list Severe sepsis secondary to cellulitis of bilateral lower extremities Chronic Lymphedema Frequent paroxysmal SVT Diabetes mellitus type II COPD Hypertension Chronic back pain Bedbound Severe sepsis secondary to cellulitis of bilateral lower extremities -Currently on cefepime and vancomycin (started 02/21) -Leukocytosis resolved. Afebrile -Blood cultures 02/20: No growth to date -Wound culture 02/20: 3+ gram-negative rods -Urine culture 02/21: Pending - CT chest abdomen pelvis w contrast 02/19: "Approximately 2.2 centimeter thyroid nodule not completely visualized in the [id number] left lobe of thyroid gland. Nonemergent thyroid ultrasound recommended. 5 centimeter fatty mass interatrial septum could represent lipomatosis hypertrophy or lipoma. Cholelithiasis without evidence cholecystitis. Spondylosis lumbar spine results in spinal stenosis" - XR right leg 02/20: ": Soft tissue ulceration mid lower leg. Edema within soft tissue. The tibia and fibula have a mottled appearance. This may represent marked osteoporosis. Chronic osteomyelitis is another consideration. If clinically indicated further evaluation with CT or MRI could be obtained" - XR left le/13: "No fracture is seen. Bones have a mottled appearance. This could be secondary to chronic osteomyelitis or marked osteoporosis" -MRI tibia-fibula 02/22: no evidence of osteomyelitis Recommendations - Continue Cefepime and Vancomycin for now - Will follow up with final culture results and adjsut antibiotics as a ppropraite. - Monitor CBC, BMP, vanco troughs - Pressure offloading measures. - Wound care per wound care team Case discussed with Kishan Dash
[2024-02-23] MEDS ORDERED: CEFEPIME 2 GM VIAL ONE ×3 (10:27→16:14)
[2024-02-23] MEDS ORDERED: ONDANSETRON 4 MG/2 ML VIAL ONE (10:47)
--- NOTE | 2024-02-23 10:54 | RAD REPORT ---
EXAM DESCRIPTION: MRI - Tib Fib Right Wo Cont - 02/23/2024 9:09 am CLINICAL HISTORY: Leg swelling and pain. Abnormal x-ray COMPARISON: X-ray February 21, 2024 TECHNIQUE: Axial, sagittal and coronal magnetic resonance imaging right tibia/fibula obtained FINDINGS: Diffuse edema is present within the subcutaneous tissues. No soft tissue abscess. No significant abnormal signal within the bones. IMPRESSION: Diffuse edema within the subcutaneous tissues may indicate a cellulitis No evidence of osteomyelitis
--- NOTE | 2024-02-23 10:54 | RAD REPORT ---
EXAM DESCRIPTION: MRI - Tib Fib Left Wo Cont - 02/23/2024 10:03 am CLINICAL HISTORY: Leg pain and swelling. Abnormal x-ray COMPARISON: February 21, 2024 x-ray TECHNIQUE: Axial, sagittal magnetic resonance imaging left tibia/fibula obtained FINDINGS: Left knee prosthesis present. Diffuse edema is present within the subcutaneous tissues. No soft tissue abscess seen. No significant abnormal signal within the bones IMPRESSION: Diffuse edema within the subcutaneous tissues may indicate a cellulitis. No evidence of osteomyelitis
--- NOTE | 2024-02-23 12:22 | P.PN ---
Date of Service: 02/23/24 Subjective: No new complaints Less palpitations/ectopy ROS: 10 point ROS as noted above, otherwise negative Physical exam GEN: Alert, oriented, NAD HEENT: Normal conjunctiva, sclera anicteric CV: Regular rate and rhythm, no edema Pulm: Nonlabored respirations on room air ABD: Soft, nontender, nondistended MSK: No joint tenderness Integumentary: No rashes, wounds to ISABEL lower extremities with dressings in place Neuro: Normal speech, normal affect Vitals reviewed Problem List Severe sepsis secondary to cellulitis of bilateral lower extremities complicated with chronic lymphedema Frequent paroxysmal SVT 5 cm fatty mass interatrial septum Hypokalemia, hyponatremia Diabetes mellitus type [id number] History of COPD Hypertension Chronic back pain-bedbound at baseline with spondylosis/spinal stenosis Bilateral thyroid nodules Plan Severe sepsis secondary to cellulitis of bilateral lower extremities complicated with chronic lymphedema Continue broad-spectrum antibiotics, follow-up blood cultures ID consultation in place MRI negative for osteomyelitis ISABEL LE Continue IV abx per ID Frequent paroxysmal SVT 5 cm fatty mass interatrial septum Could represent lipomatosis hypertrophy or lipoma Echocardiogram, cardiology consult in place Continue to monitor on telemetry, replace electrolytes according to protocol Attempt to obtain EKG during bout of SVT, happening a few times per hour lasting only for couple minutes Appears to be SVT, also considering possibility of atrial fibrillation/atrial flutter Much less frequent episodes for ectopy today, likely partially related to electrolyte disturbances Hypokalemia, hyponatremia Improving with IV fluids, electrolyte replacement Monitor chemistry daily along with magnesium/phosphorus Diabetes mellitus type [id number] ACHS Accu-Chek, sign scale insulin History of COPD As needed nebulizer treatments Hypertension Blood pressure soft at this time, hold oral antihypertensives Chronic back pain-bedbound at baseline with spondylosis/spinal stenosis Per patient/family patient is been bedbound for the last approximately 5 years Continue as needed pain medication for back pain PT consultation Bilateral thyroid nodules Bilateral thyroid nodules, up to TR 3 category on the left, deserving sonogr aphic follow-up in 12 months. VTE: Lovenox Code: Full Dispo: 2+ days Time Spent Managing Pts Care (In Minutes): 35
[2024-02-23] MEDS ORDERED: MUPIROCIN 2% OINT 22GM TUBE TOP ONE (19:26)
[2024-02-24] MEDS ORDERED: NA CHLORIDE 0.9% 100 ML ONE ×3 (01:58→15:59)
[2024-02-24] MEDS ORDERED: CEFEPIME 2 GM VIAL ONE ×3 (01:58→15:59)
[2024-02-24] MEDS ORDERED: ONDANSETRON 4 MG/2 ML VIAL ONE ×2 (04:31→16:03)
[2024-02-24] MEDS ORDERED: TRAMADOL HCL 50 MG TAB ONE (04:31)
[2024-02-24 04:54] LABS: Absolute Eosinophils 0.1 K/uL (0-0.5); Absolute Monocytes 0.4 K/uL (0.1-1.3); Absolute Neutrophil 6.8 K/uL (1.8-8.0); Basophils % 0.5 % (0-1.3); Eosinophils % 1.1 % (0-4.4); Hematocrit 40.1 % (36.0-45.0); Hemoglobin 13.1 g/dL (12.0-15.0); Lymphocytes % 12.3 % (15.3-44.8); MCHC 32.6 g/dL (32.0-36.0); MCV 91.9 fL (80-100); MPV 9.3 fL (7.6-11.3); Neutrophils % 81.1 % (41.7-73.7); Nucleated Red Blood Cells % 0.1 % (0-0); Platelets 103 thou/uL (152-406); RBC Red Blood Cell Count 4.36 M/uL (3.86-4.86); Red Cell Distribution Width 15.9 % (12.1-15.2)
[2024-02-24 05:01] LABS: Albumin 1.8 g/dL (3.4-5.0); Albumin/Globulin Ratio 0.5 (1.1-1.8); Anion Gap 11.7 mEq/L (5.0-15.0); Bilirubin Total 1.3 mg/dL (0.2-1.0); Globulin 3.3 g/dL (2.3-3.5); Phosphorus 1.7 mg/dL (2.5-4.9); Potassium 3.7 mEq/L (3.5-5.1); Protein, Total 5.1 g/dL (6.4-8.2)
--- NOTE | 2024-02-24 07:09 | ECHO ---
HEIGHT: 5 ft 6 in WEIGHT: 202 lb 14.4 oz DATE OF STUDY: 02/23/[address]: Harry Olivares NP 2-DIMENSIONAL: YES M.MODE: YES DOPPLER: YES COLOR FLOW: YES TDS: YES PORTABLE: YES DEFINITY: BUBBLE STUDY: DIAGNOSIS: ABNORMAL CT, FREQUENT SUPRAVENTRICULAR TACHYCARDIA CARDIAC HISTORY: CATHERIZATION: NO SURGERY: NO PROSTHETIC VALVE: NO PACEMAKER: NO MEASUREMENTS (cm) DIASTOLIC (NORMALS) SYSTOLIC (NORMALS) IVSd 1.0 (0.6-1.2) LA Diam 2.2 (1.9-4.0) LVEF 58% LVIDd 4.4 (3.5-5.7) LVIDs 3.1 (2.0-3.5) %FS 30% LVPWd 1.1 (0.6-1.2) Ao Diam 2.8 (2.0-3.7) 2 DIMENSIONAL ASSESSMENT: RIGHT ATRIUM: POOR WINDOWS LEFT ATRIUM: POOR WINDOWS RIGHT VENTRICLE: POOR WINDOWS LEFT VENTRICLE: POOR WINDOWS TRICUSPID VALVE: POOR WINDOWS MITRAL VALVE: POOR WINDOWS PULMONIC VALVE: POOR WINDOWS AORTIC VALVE: POOR WINDOWS PERICARDIAL EFFUSION: POOR WINDOWS AORTIC ROOT: POOR WINDOWS LEFT VENTRICULAR WALL MOTION: DOPPLER/COLOR FLOW: COMMENTS: 1. EXTREMELY LIMITED ECHOCARDIOGRAM DUE TO POOR WINDOWS 2. OVERALL LEFT VENTRICULAR EJECTION FRACTION APPEARS NORMAL 3. QUESTIONABLE RIGHT ATRIAL MASS (BUT WINDOWS ARE POOR), RECOMMEND TRANSESOPHAGEAL ECHOCARDIOGRAM TECHNOLOGIST: SATURNINO TAVARES
[2024-02-24] MEDS ORDERED: MIDAZOLAM HCL 2 MG/2 ML INJ ONE (07:56)
[2024-02-24] MEDS ORDERED: FENTANYL CITR 100 MCG/2 ML ONE (07:56)
[2024-02-24] MEDS ORDERED: FLUMAZENIL 0.1 MG/ML (5 mL VIAL) IV ONE (07:57)
[2024-02-24] MEDS ORDERED: MIDAZOLAM HCL 5 ML ONE (07:57)
[2024-02-24] MEDS ORDERED: Phenylephrine HCl 10 MG/ML 1 ML VIAL ONE (07:57)
[2024-02-24] MEDS ORDERED: LIDOCAINE VISCOUS 2% 10ML ORAL SOLN ONE (08:20)
--- NOTE | 2024-02-24 08:20 | PN ---
Date of Progress Note: 02/24/2024 Subjective: Seen by bedside. Doing well. No new complaints. Review of Systems: No chest pain, shortness of breath, orthopnea, cough, nausea, vomiting, diarrhea. All other systems reviewed, they are negative. Objective: Vital Signs: Reviewed. Head and Neck: Pupils are equal, reactive to light. Intact eye movements. No JVD. No cervical lym phadenopathy. Neck is supple. Thyroid is not enlarged. Lungs: Clear to auscultation bilaterally. No rhonchi, wheezing, or crackles. No accessory muscle u se. Heart: Irregular. No extra sounds. Abdomen: Soft, nontender. Bowel sounds positive. No organomegaly. No masses or hernia. No rigidi ty or rebound. Extremities: No clubbing, cyanosis. Intact pulses. Skin: No rash or nodule. Neurologic: Alert, awake, oriented x3. No acute focal deficits appreciated. Investigations: Labs reviewed. Assessment/recommendation: 1.Intra-atrial mass by CT scan. Echo was reviewed. Very poor quality and there is likely a mass, p robably myxoma, however, could not identify it very well or even see it very well on the transthoraci c echo due to body habitus and poor windows. Plan would be to do a transesophageal echocardiogram to day. 2.Cellulitis, lower extremities, on antibiotics. 3.Hypokalemia, resolved. SR/MODL Voice ID: [id number] Report ID: [id number]
[2024-02-24] MEDS: VANCOMYCIN 1.5 GM in NA CHLORIDE 0.9% 500 ML IVPB SCH (09:00)
--- NOTE | 2024-02-24 09:29 | P.PN ---
Infectious Disease Progress Note Chief Complaint: weakness Subjective: In no apparent distress. No acute events overnight. s/p DOLORES today. Plan of care discussed with patient and at bedside. Physical Examination Temp Pulse Resp BP Pulse Ox 97.5 F 91 H 22 H 112/97 H 100 02/24/24 04:00 02/24/24 04:00 02/24/24 04:00 02/24/24 04:00 02/23/24 20:00 General: In no apparent distress, Oriented x3 HEENT: Atraumatic, Normocephalic Respiratory: Clear to auscultation bilaterally, Normal air movement. nonlabored respirations. Cardiovascular: Regular rate/rhythm. Gastrointestinal: Normal bowel sounds, Soft and benign, No tenderness Integumentary: Venous stasis ulcer BLE. BLE lymphedema. Urinary: Sifuentes catheter. Laboratory data -Reviewed Microbiology data -Reviewed Imagings Data: -Reviewed Assessment and Plan Problem list Severe sepsis secondary to cellulitis of bilateral lower extremities Chronic Lymphedema Frequent paroxysmal SVT Diabetes mellitus type II COPD Hypertension Chronic back pain Bedbound Severe sepsis secondary to cellulitis of bilateral lower extremities -Currently on cefepime and vancomycin (started 02/21) -Leukocytosis resolved. Afebrile -Blood cultures 02/20: No growth to date -Wound culture 02/20: 3+ gram-negative rods -Urine culture 02/21: gram negative rods - CT chest abdomen pelvis w contrast 02/19: "Approximately 2.2 centimeter thyroid nodule not completely visualized in the [id number] left lobe of thyroid gland. Nonemergent thyroid ultrasound recommended. 5 centimeter fatty mass interatrial septum could represent lipomatosis hypertrophy or lipoma. Cholelithiasis without evidence cholecystitis. Spondylosis lumbar spine results in spinal stenosis" - XR right leg 02/20: ": Soft tissue ulceration mid lower leg. Edema within soft tissue. The tibia and fibula have a mottled appearance. This may represent marked osteoporosis. Chronic osteomyelitis is another consideration. If clinically indicated further evaluation with CT or MRI could be obtained" - XR left le/13: "No fracture is seen. Bones have a mottled appearance. This could be secondary to chronic osteomyelitis or marked osteoporosis" -MRI tibia-fibula 02/22: no evidence of osteomyelitis Recommendations - Continue Cefepime for now. Discontinue vancomycin. - Will follow up with final culture results and adjust antibiotics as appropriate. - Monitor CBC, BMP, vanco troughs - BLE stasis ulcers: cleanse with mild soap/water or NS, pat dry, apply xeroform to open areas, then wrap with kerlix. - Pressure offloading measures. Case discussed with Kishan Dash
[2024-02-24] MEDS ORDERED: ASPIRIN EC 81 MG TAB PO ONE (09:40)
[2024-02-24] MEDS: POTASSIUM PHOS IN 0.9 % NACL 15 MMOL/250 ML BAG IV ONE (13:40)
--- NOTE | 2024-02-24 13:46 | P.PN ---
Subjective Date of Service: 02/24/24 Chief Complaint: weakness Subjective: No new changes Patient has no new complaints today. She denies any shortness of breath. Physical Examination - Vital Signs Temperature: 97.5 F Blood Pressure: 112/97 Pulse: 91 Respirations: 22 Pulse Ox (%): 100 - Studies Microbiology Data (last 24 hrs): 02/21/24 19:38 Wound - L Leg (Lower) Gram Stain - Final Assessment And Plan - Plan Physical exam GEN: Alert, oriented, NAD HEENT: Normal conjunctiva, sclera anicteric CV: Regular rate and rhythm, no edema Pulm: Nonlabored, clear to auscultation bilaterally. ABD: Soft, nontender, nondistended MSK: No joint tenderness Integumentary: No rashes, macerated skin with ulcers bilateral shins. Neuro: Normal speech, normal affect Vitals reviewed Problem List Severe sepsis secondary to cellulitis of bilateral lower extremities complicated with chronic lymphedema Frequent paroxysmal SVT 5 cm fatty mass interatrial septum Hypokalemia, hyponatremia Diabetes mellitus type [id number] History of COPD Hypertension Chronic back pain-bedbound at baseline with spondylosis/spinal stenosis Bilateral thyroid nodules Plan Severe sepsis secondary to cellulitis of bilateral lower extremities complicated with chronic lymphedema Infectious diseases following. Continue IV cefepime and vancomycin MRI negative for osteomyelitis ISABEL LE Local wound care. Wound care team are following. Frequent paroxysmal SVT 5 cm fatty mass interatrial septum Could represent lipomatosis hypertrophy or lipoma Cardiology input appreciated Patient is scheduled for DOLORES today. Continue to monitor on telemetry, replace electrolytes according to protocol Monitor and optimize electrolytes. Hypokalemia, hyponatremia, hypophosphatemia Hypokalemia resolved. Monitor and replace electrolytes as needed. Diabetes mellitus type [id number] ACHS Accu-Chek, insulin sliding scale. History of COPD As needed nebulizer treatments Hypertension Patient is currently normotensive without antihypertensives. Continue to hold home antihypertensives. Chronic back pain-bedbound at baseline with spondylosis/spinal stenosis Per patient/family patient is been bedbound for the last approximately 5 years Continue analgesics as needed PT. Bilateral thyroid nodules Bilateral thyroid nodules, up to TR 3 category on the left, deserving sonographic follow-up in 12 months. VTE: Lovenox Code: Full Dispo: 2+ days Time Spent Managing Pts Care (In Minutes): 28
[2024-02-25] MEDS ORDERED: CEFEPIME 2 GM VIAL ONE ×2 (01:16→08:59)
[2024-02-25] MEDS ORDERED: NA CHLORIDE 0.9% 100 ML ONE ×2 (01:18→08:59)
[2024-02-25 03:20] VITALS: O2SAT 99
[2024-02-25 08:05] VITALS: BMI 33.5
[2024-02-25] MEDS: MEDIHONEY 44 ML TOPICAL TUBE TOP SCH (09:03)
--- NOTE | 2024-02-25 09:28 | P.PN ---
Infectious Disease Progress Note Chief Complaint: weakness Subjective: No acute events overnight. In no apparent distress. No new or worsening complaints at this time. Physical Examination Temp Pulse Resp BP Pulse Ox 98.4 F 95 H 14 113/76 99 02/25/24 08:00 02/25/24 08:00 02/25/24 08:00 02/25/24 08:00 02/25/24 08:00 General: In no apparent distress, Oriented x3 HEENT: Atraumatic, Normocephalic Respiratory: Clear to auscultation bilaterally, Normal air movement. nonlabored respirations. Cardiovascular: Regular rate/rhythm. Gastrointestinal: Normal bowel sounds, Soft and benign, No tenderness Integumentary: Venous stasis ulcer BLE. BLE lymphedema. Urinary: Sifuentes catheter. Laboratory data -Reviewed Microbiology data -Reviewed Imagings Data: -Reviewed Assessment and Plan Problem list Severe sepsis secondary to cellulitis of bilateral lower extremities Chronic Lymphedema Frequent paroxysmal SVT Diabetes mellitus type II COPD Hypertension Chronic back pain Bedbound Severe sepsis secondary to cellulitis of bilateral lower extremities -Currently on cefepime and vancomycin (started 02/21) -Leukocytosis resolved. Afebrile -Blood cultures 02/20: No growth to date -Wound culture 02/20: 3+ gram-negative rods -Urine culture 02/21: gram negative rods - CT chest abdomen pelvis w contrast 02/19: "Approximately 2.2 centimeter thyroid nodule not completely visualized in the [id number]-rz-[id number] left lobe of thyroid gland. Nonemergent thyroid ultrasound recommended. 5 centimeter fatty mass interatrial septum could represent lipomatosis hypertrophy or lipoma. Cholelithiasis without evidence cholecystitis. Spondylosis lumbar spine results in spinal stenosis" - XR right leg 02/20: ": Soft tissue ulceration mid lower leg. Edema within soft tissue. The tibia and fibula have a mottled appearance. This may represent marked osteoporosis. Chronic osteomyelitis is another consideration. If clinically indicated further evaluation with CT or MRI could be obtained" - XR left le/13: "No fracture is seen. Bones have a mottled appearance. This could be secondary to chronic osteomyelitis or marked osteoporosis" -MRI tibia-fibula 02/22: no evidence of osteomyelitis Recommendations - Continue Cefepime for now. - Discontinue Vancomycin, consider switch to Doxycycline PO. - Awaiting final wound and urine culture results. Will adjust antibiotics as appropriate. - BLE stasis ulcers: cleanse with mild soap/water or NS, pat dry, apply xeroform to open areas, then wrap with kerlix. - Pressure offloading measures. - Continue supportive care Case discussed with Kishan Dash
--- NOTE | 2024-02-25 10:11 | TEE ---
TRANSESOPHAGEAL ECHOCARDIOGRAM REPORT CARDIOLOGY DEPARTMENT DATE OF STUDY: 02/24/2024 HEIGHT: 5'6" WEIGHT: 202 lbs DIAGNOSIS: RIGHT ATRIAL MASS BRANCH CREDIT COUNSELOR COMMENTS: DOLORES CARDIAC HISTORY: CATHERIZATION: SURGERY: PROSTHETIC VALVE: PACEMAKER: 2 DIMENSIONAL ASSESSMENT: RIGHT ATRIUM: LEFT ATRIUM: RIGHT VENTRICLE: LEFT VENTRICLE: TRICUSPID VALVE: MITRAL VALVE: PULMONIC VALVE: AORTIC VALVE: PERICARDIAL EFFUSION: AORTIC ROOT: EJECTION FRACTION: LEFT VENTRICULAR WALL MOTION: DOPPLER/COLOR FLOW: COMMENTS: 1. TRANSESOPHAGEAL ECHOCARDIOGRAM WAS INSERTED, NO DIFFICULTY 2. SEVERELY THICKENED INTRA ATRIAL SEPTUM (LIPOMA SEPTUM). TECHNOLOGIST: MAYDA LEA
[2024-02-25] MEDS ORDERED: MORPHINE 2 MG/ML SYR ONE (10:19)
[2024-02-25] MEDS ORDERED: ONDANSETRON 4 MG/2 ML VIAL ONE (10:26)
[2024-02-25] MEDS ORDERED: DIPHENHYDRAMINE 25 MG TAB/CAP ONE (11:15)
[2024-02-25] MEDS: DIPHENHYDRAMINE 25 MG TAB/CAP PO SCH (11:16)
[2024-02-25] MEDS ORDERED: DIPHENHYDRAMINE 25 MG TAB/CAP PO PRN (12:38)
[2024-02-25 12:57] LABS: Albumin 1.6 g/dL (3.4-5.0); Albumin/Globulin Ratio 0.5 (1.1-1.8); Anion Gap 10.7 mEq/L (5.0-15.0); Bilirubin Total 1.2 mg/dL (0.2-1.0); Globulin 3.2 g/dL (2.3-3.5); Phosphorus 1.8 mg/dL (2.5-4.9); Protein, Total 4.8 g/dL (6.4-8.2)
[2024-02-25 13:01] LABS: Potassium 4.7 mEq/L (3.5-5.1)
--- NOTE | 2024-02-25 13:11 | P.DS ---
Admission Date: 02/22/24 Discharge Date: 02/25/24 Disposition: ROUTINE DISCHARGE Discharge Condition: FAIR Reason for Admission: weakness Brief History of Present Illness: 68-year-old female with HTN/DM/obesity/COPD/chronic lower extremity lymphedema/chronic back pain with spinal stenosis/bedbound status due to chronic back pain and bilateral lower extremity lymphedema, was brought to the emergency department today because of increasing weakness, lethargy as well as decreased p.o. intake of 10 days duration. No reported fever or chills. On arrival in the ED vital signs were stable, afebrile, laboratory workup shows WBC of 14,000 with left shift, hemoglobin elevated at 16.6, BMP shows normal creatinine with elevated BUN of 20, alkaline phosphatase and AST mildly elevated but normal ALT, lactic acid of 2.6 chest x-ray showed no acute pulmonary infiltrate, x-ray of bilateral tibia-fibula show mottled appearance of the bones worrisome for osteoporosis versus chronic osteomyelitis. CT of the abdomen and pelvics shows chronic indwelling Sifuentes, cholelithiasis without evidence of cholecystitis, spondylosis of the lumbar spine with spinal stenosis, 2.2 cm thyroid nodule and recommend nonemergent thyroid ultrasound. 5 cm fatty mass in the atrial septum suspect possible lipomatous hypertrophy approximately 2.2 centimeter. Patient was admitted for further management. Hospital Course: Diagnosis Severe sepsis secondary to cellulitis of bilateral lower extremities complicated with chronic lymphedema Frequent paroxysmal SVT 5 cm fatty mass interatrial septum Hypokalemia, hyponatremia Diabetes mellitus type [id number] History of COPD Hypertension Chronic back pain-bedbound at baseline with spondylosis/spinal stenosis Bilateral thyroid nodules Functional quadriplegia Plan Severe sepsis secondary to cellulitis of bilateral lower extremities complicated with chronic lymphedema Infectious disease evaluated patient and assisted with management Patient was treated with IV cefepime and vancomycin MRI of the lower extremity negative for osteomyelitis. Local wound care. Wound care team assisted with wound care. Home health was offered for wound care but patient and spouse declined and stated they have been doing wound care themselves for several years and do not need any help. Patient prescribed Medihoney. Frequent paroxysmal SVT 5 cm fatty mass interatrial septum Could represent lipomatosis hypertrophy or lipoma Cardiology Dr. Epps input appreciated DOLORES done, patient noted to have lipoma on septum. No further intervention per Dr. Epps Hypokalemia, hyponatremia, hypophosphatemia Hypokalemia resolved. Monitor and replace electrolytes as needed. Diabetes mellitus type [id number] Blood sugar readings were within normal range during the hospital stay. Managed with ACHS Accu-Chek, insulin sliding scale. Metformin resumed on discharge. History of COPD As needed nebulizer treatments Chronic back pain-bedbound at baseline with spondylosis/spinal stenosis Per patient/family patient is been bedbound for the last approximately 5 years Continue analgesics as needed Bilateral thyroid nodules Bilateral thyroid nodules, up to TR 3 category on the left, deserving sonographic follow-up in 12 months. Vital Signs/Physical Exam: Temp Pulse Resp BP Pulse Ox 97.3 F 95 H 14 127/79 100 02/25/24 12:00 02/25/24 12:00 02/25/24 12:00 02/25/24 12:00 02/25/24 12:00 General: Alert, In no apparent distress, Oriented x3 HEENT: Mucous membr. moist/pink Neck: Supple, JVD not distended Respiratory: Clear to auscultation bilaterally, Normal air movement Cardiovascular: Regular rate/rhythm, Normal S1 S2, Edema (Bilateral lower extremities) Gastrointestinal: Normal bowel sounds, Soft and benign, Non-distended, No tenderness Musculoskeletal: Swelling (Bilateral leg) Integumentary: Venous stasis ulcer (Bilateral legs) Neurological: Other (No focal motor deficit) Laboratory Data at Discharge: WBC 8.40 thou/uL (4.3-10.9) 02/24/24 04:33 Hgb 13.1 g/dL (12.0-15.0) 02/24/24 04:33 Hct 40.1 % (36.0-45.0) 02/24/24 04:33 Plt Count 103 thou/uL (152-406) L 02/24/24 04:33 PT 13.0 SECONDS (9.5-12.5) H 02/21/24 19:25 INR 1.19 02/21/24 19:25 APTT 29.3 SECONDS (24.3-36.9) 02/21/24 19:25 Sodium 134 mEq/L (136-145) L 02/25/24 12:18 Potassium 4.7 mEq/L (3.5-5.1) 02/25/24 12:18 BUN 15 mg/dL (7-18) 02/25/24 12:18 Creatinine 0.62 mg/dL (0.55-1.02) 02/25/24 12:18 Glucose 120 mg/dL (74-106) H 02/25/24 12:18 Phosphorus 1.8 mg/dL (2.5-4.9) L 02/25/24 12:18 Magnesium 1.7 mg/dL (1.6-2.4) 02/24/24 00:10 Total Bilirubin 1.2 mg/dL (0.2-1.0) H 02/25/24 12:18 AST 77 U/L (15-37) H 02/25/24 12:18 ALT 40 U/L (13-56) 02/25/24 12:18 Alkaline Phosphatase 104 U/L (45-117) 02/25/24 12:18 Home Medications: Gabapentin 600 mg PO TID 01/16/19 Metformin ER [Glucophage ER*] 250 mg PO DAILY 01/16/19 Tramadol HCl [Ultram] 100 mg PO TID 01/16/19 Cefdinir [Omnicef] 300 mg PO BID #14 cap 02/25/24 Diphenhydramine [Benadryl*] 25 mg PO QID PRN #20 tab 02/25/24 Doxycycline Hyclate 100 mg PO BID #14 cap 02/25/24 Medihoney [Medihoney Woundcare Gel*] 1 appl TOP DAILY #1 tube 02/25/24 traMADol HCL [Ultram*] 50 mg PO TID PRN #20 tab 02/25/24 New Medications: Diphenhydramine [Benadryl*] 25 mg PO QID PRN #20 tab PRN Reason: Itching Doxycycline Hyclate 100 mg PO BID #14 cap Medihoney [Medihoney Woundcare Gel*] 1 appl TOP DAILY #1 tube Cefdinir [Omnicef] 300 mg PO BID #14 cap traMADol HCL [Ultram*] 50 mg PO TID PRN #20 tab PRN Reason: Pain Scale 5-7 (Moderate) Physician Discharge Instructions: You have thyroid nodules and you will need a repeat ultrasound of your thyroid gland within 12 months. Diet: ADA Activity: Fall precautions Time spent managing pt's care (in minutes): 36
[2024-02-25 16:05] VITALS: BP 113/76; TEMP 96.9
--- NOTE | 2024-02-25 20:16 | OP ---
Date of Procedure: 02/24/2024 Surgeon: CHERRIE LAYNE Procedure Performed: Transesophageal electrocardiogram. Indication: Mass on CT in the right atrium. Description Of Procedure: After risks, benefits, alternatives were explained, patient agreed to proc edure and signed informed consent. I gave moderate sedation with the Versed and then inserted a DOLORES probe without any difficulty. DOLORES was performed without any difficulties and probe was removed and t he patient was sent to recovery in stable condition. Conclusion: Successful transesophageal echocardiogram. /DEE Voice ID: [id number] Report ID: [id number]
--- NOTE | 2024-02-25 23:14 | PN ---
Date of Progress Note: 02/25/2024 Subjective: Seen by bedside, doing clinically well. No chest pain, shortness of breath, orthopnea, cough, status post DOLORES, and she has lipomatous interatrial septum. Review of Systems: No chest pain, shortness of breath, orthopnea, cough. No nausea, vomiting, diarrhea. All other syst ems reviewed, they were negative. Physical Examination: Vital Signs: Reviewed. Head and Neck: Pupils are equal, reactive to light. Intact eye movements. No JVD. No cervical lym phadenopathy. Neck is supple. Thyroid is not enlarged. Lungs: Clear to auscultation bilaterally. No rhonchi, wheezing, or crackles. No accessory muscle u se. Heart: Regular rate and rhythm. No extra sounds. Abdomen: Soft, nontender. Bowel sounds positive. No organomegaly. No masses or hernia. No rigidi ty or rebound. Extremities: No edema, clubbing, cyanosis. Intact pulses. Skin: No rash or nodule. Neurologic: Alert, awake, oriented x3. No acute focal deficits appreciated. Investigation: Labs reviewed. Assessment/recommendation: 1.Intra-atrial mass like by CT scan. On echo, it is thickened atrial septum, it is lipomatous septu m. No further cardiac workup is needed on this matter. Monitor clinically. 2.Cellulitis, lower extremity, on antibiotics. 3.Hypokalemia, resolved. The patient can be released from Cardiology standpoint. Follow up with me as an outpatient. /DEE Voice ID: [id number] Report ID: [id number]
== END 2024-02-25 17:30 | disposition home or self-care (01) | DRG 871 ==
LOC: ER 18:34 → ERHOLD 02-22 00:04 → 3RD-ICU 02-22 01:04 → 2ND 02-25 12:42
PROVIDERS: ADMIT Internal Medicine; ATTEND Internal Medicine
PROC: B24BZZ4 Ultrasonography of Heart with Aorta, Transesophageal (ICD-10-PCS; principal; 2024-02-24)
DX: A41.9 Sepsis, unspecified organism (principal); L89.323 Pressure ulcer of left buttock, stage 3; R53.2 Functional quadriplegia; L03.116 Cellulitis of left lower limb; L03.115 Cellulitis of right lower limb; E87.1 Hypo-osmolality and hyponatremia; N17.9 Acute kidney failure, unspecified; I47.10 Supraventricular tachycardia, unspecified; L97.819 Non-pressure chronic ulcer of other part of right lower leg with unspecified severity; L97.829 Non-pressure chronic ulcer of other part of left lower leg with unspecified severity; R65.20 Severe sepsis without septic shock; L89.100 Pressure ulcer of unspecified part of back, unstageable; L89.892 Pressure ulcer of other site, stage 2; E87.6 Hypokalemia; I10 Essential (primary) hypertension; E11.40 Type 2 diabetes mellitus with diabetic neuropathy, unspecified; E11.618 Type 2 diabetes mellitus with other diabetic arthropathy; E11.51 Type 2 diabetes mellitus with diabetic peripheral angiopathy without gangrene; J42 Unspecified chronic bronchitis; E04.1 Nontoxic single thyroid nodule; E87.5 Hyperkalemia; N31.9 Neuromuscular dysfunction of bladder, unspecified; E83.39 Other disorders of phosphorus metabolism; E86.0 Dehydration; I83.028 Varicose veins of left lower extremity with ulcer other part of lower leg; I83.018 Varicose veins of right lower extremity with ulcer other part of lower leg; M47.819 Spondylosis without myelopathy or radiculopathy, site unspecified; M48.00 Spinal stenosis, site unspecified; G89.29 Other chronic pain; M54.9 Dorsalgia, unspecified; M48.061 Spinal stenosis, lumbar region without neurogenic claudication; F17.210 Nicotine dependence, cigarettes, uncomplicated; Z88.0 Allergy status to penicillin; Z74.01 Bed confinement status; Z79.84 Long term (current) use of oral hypoglycemic drugs; Z79.899 Other long term (current) drug therapy; Z96.652 Presence of left artificial knee joint; Z90.710 Acquired absence of both cervix and uterus
CPT/HCPCS: 36415; 71045; 71260; 74177; 76536; 76937; 80053; 80202; 81001; 82947; 83605; 83735; 84100; 84443; 84484; 85025; 85610; 85730; 86140; 87040; 87070; 87077; 87086; 87088; 87186; 87205; 87324; 87811; 93005; 93306; 93312; 93458; 96361; 96365; 96367; 96375; 99152; 99285; C1893; J0692; J1650; J2250; J2270; J2371; J2405; J3010; J3475; J3480; J7030; J7040; J7050; Q9966; Q9967

== ENCOUNTER 2024-03-05 11:31 | Inpatient (IN) | payer OTHER ==
[2024-03-05] MEDS ORDERED: NA CHLORIDE 0.9% 1,000 ML ONE ×3 (12:08→16:18)
[2024-03-05] MEDS ORDERED: ACETAMINOPHEN 650MG/RECT SUPP PR ONE (12:14)
[2024-03-05] MEDS ORDERED: VANCOMYCIN 1 GM/VIAL ONE (12:14)
[2024-03-05] MEDS ORDERED: NA CHLORIDE 0.9% 250 ML ONE (12:15)
[2024-03-05] MEDS ORDERED: CEFEPIME 2 GM VIAL ONE (12:15)
[2024-03-05] MEDS ORDERED: NA CHLORIDE 0.9% 100 ML ONE (12:15)
--- NOTE | 2024-03-05 12:37 | RAD REPORT ---
EXAM DESCRIPTION: RAD - Chest Single View - 03/05/2024 12:32 pm CLINICAL HISTORY: sepsis Chest pain. COMPARISON: Chest Single View dated 02/21/2024; Chest Single View dated 09/24/2020; Chest Single View dated 09/21/2020; Chest Single View dated 03/12/2020 FINDINGS: Portable technique limits examination quality. The lungs are grossly clear. The heart is normal in size. No displaced fractures.Left-sided venous ca theter has been placed with its tip in the SVC. No evidence of pneumothorax. IMPRESSION: No acute intrathoracic process suspected.
[2024-03-05 12:51] LABS: Absolute Lymphocytes (CBC) 2.3 K/uL (0.7-4.9); Absolute Monocytes 0.4 K/uL (0.1-1.3); Absolute Neutrophil 9.8 K/uL (1.8-8.0); Basophils % 0.3 % (0-1.3); Eosinophils % 0.1 % (0-4.4); Hematocrit 40.2 % (36.0-45.0); Hemoglobin 13.2 g/dL (12.0-15.0); Lymphocytes % 18.2 % (15.3-44.8); MCH 29.1 pg (27.0-35.0); MCHC 32.8 g/dL (32.0-36.0); MCV 88.8 fL (80-100); MPV 9.4 fL (7.6-11.3); Monocytes % 3.1 % (3.3-12.3); Neutrophils % 78.3 % (41.7-73.7); Nucleated RBC Absolute Count 0.1 (0-0); Nucleated Red Blood Cells % 0.5 % (0-0); Platelets 57 thou/uL (152-406); RBC Red Blood Cell Count 4.52 M/uL (3.86-4.86); Red Cell Distribution Width 16.3 % (12.1-15.2)
[2024-03-05 13:09] LABS: PT Prothrombin Time 17.1 SECONDS (9.5-12.5); PTT, Activated Partial Thromb 28.2 SECONDS (24.3-36.9); Protime INR 1.58
[2024-03-05 13:10] LABS: Albumin 1.6 g/dL (3.4-5.0); Albumin/Globulin Ratio 0.5 (1.1-1.8); Anion Gap 14.4 mEq/L (5.0-15.0); Bilirubin Total 0.9 mg/dL (0.2-1.0); Globulin 3.3 g/dL (2.3-3.5); Potassium 4.4 mEq/L (3.5-5.1); Protein, Total 4.9 g/dL (6.4-8.2); Troponin High Sensitivity 29.9 pg/mL (<58.9)
--- NOTE | 2024-03-05 13:16 | RAD REPORT ---
EXAM DESCRIPTION: CT - Chest Abd Pelvis Wo Con - 03/05/2024 12:57 pm CLINICAL HISTORY: Sepsis, chest and abdominal pain COMPARISON: February 21, 2024 TECHNIQUE: Computed axial tomography of the chest, abdomen and pelvis was obtained. Oral contrast wa s given. IV contrast was not requested. All CT scans are performed using dose optimization technique as appropriate and may include automated exposure control or mA/KV adjustment according to patient size. FINDINGS: The evaluation of mediastinum, jay, vessels and solid organs is limited secondary to the lack of IV contrast administration The lungs are clear No mediastinal or hilar lymphadenopathy is seen. Thyroid nodules described on February 22, 2024 ultrasound 5 centimeter fatty mass interatrial septum could represent lipomatosis hypertrophy or lipoma Small left pleural effusion. A pericardial effusion is not seen. Fatty liver. Spleen, pancreas, right adrenal and kidneys unremarkable. A 1.8 centimeter left adrenal mass. Unchanged from 2018 likely benign. No follow-up recommended No evidence of diverticulitis A Sifuentes catheter within the bladder. Normal appendix. Hysterectomy. No adnexal mass Spondylosis lumbar spine results in spinal stenosis Atherosclerosis Cholelithiasis. No gallbladder wall thickening Chronic inflammatory changes subcutaneous fat to the right of midline posterior to coccyx. Cortical i rregularity coccyx Marked osteoarthritis involves the hips Prominent stranding within lateral subcutaneous tissues abdomen and pelvis. Stranding within the righ t lateral subcutaneous tissues abdomen pelvis to a lesser degree. IMPRESSION: Small left pleural effusion Fatty liver Cholelithiasis without evidence cholecystitis Prominent stranding within lateral subcutaneous tissues abdomen and pelvis. Stranding within the righ t lateral subcutaneous tissues abdomen pelvis to a lesser degree. This could represent a cellulitis a nd should be correlated clinically Cortical irregularity coccyx probably chronic osteomyelitis
[2024-03-05 14:16] LABS: Band Neutrophils 3 % (0-1); Differential Total Cells Count 100; Lymphocytes 17 % (15-42); Monocytes 5 % (0-10); Nucleated Red Blood Cells 1 /100WBC; Segmented Neutrophils 75 % (40-80)
[2024-03-05 14:17] LABS: Blood Morphology Comment NOTED (NOT SEEN); Hypochromasia 2+; Platelet Estimate DECR; Polychromasia 1+
--- NOTE | 2024-03-05 14:57 | EDPHYS ---
Physician Documentation [facility] Name: Carrie Webb Age: 68 yrs Sex: Female : 1955 Arrival Date: 03/05/2024 Time: 11:31 Bed 3 Private MD: ED Physician Ayaan Coombs HPI: 03/05 16:03 This 68 yrs old Female presents to ER via EMS with complaints of Altered Mental Status. rt 16:03 Patient presents to the ED with altered mental status. Patient had a recent mission for rt sepsis. No further history could be obtained due to altered mental status. Symptoms are severe in severity, no other aggravating or alleviating factors.. Historical: - Allergies: 12:29 PENICILLINS; ld1 - Immunization history:: Adult Immunizations up to date. - Infectious Disease History:: Denies. - Social history:: Smoking status: Patient denies any tobacco usage or history of. ROS: 16:03 Unable to obtain ROS due to altered mental status, rt Exam: 16:08 ENT: Dry mucous membranes. rt 16:08 ECG was reviewed by the Attending Physician. 16:08 Skin: Macerated skin with erythema to the majority of the back, there is a stage II-III decubitus sacral ulcer. 16:08 Neuro: Confused, moves all 4 extremities equally, Vital Signs: 11:33 BP 84 / 56; Pulse 139; Resp 15; Temp 100.3(R); Pulse Ox 96% on R/A; Height 5 ft. 4 in. ;ld1 12:28 BP 83 / 60; Pulse 149; Resp 23; Pulse Ox 95% on R/A; ld1 12:34 Weight 93.89 kg; ld1 13:12 BP 94 / 82; Pulse 147; Resp 17; Pulse Ox 98% on R/A; ld1 13:25 BP 94 / 82; Pulse 144; Resp 17; Pulse Ox 96% on R/A; ld1 14:50 BP 89 / 68; Pulse 145; Resp 18; Pulse Ox 95% on R/A; ld1 16:11 BP 92 / 55; Pulse 148; Resp 17; Pulse Ox 98% ; MAP 62 mmHg; ld1 18:05 BP 99 / 70; ld1 Procedures: 16:10 Central Line: the site was prepped with Chlorhexidine, a triple lumen catheter was rt inserted, in the left internal jugular vein, in 1 attempts. placement was verified, by CXR, by blood return, the site was dressed with Chlorhexidine impregnated Tegaderm, the patient tolerated the procedure, well. MDM: 11:37 Patient medically screened. rt 15:28 Post IV fluid administration reassessment for Sepsis: Sepsis focused reassessment rt complete. Lungs: noted to be clear bilaterally. Current patient vital signs reviewed: Yes. Neuro: Patient's neurological exam has improved from previous exam. 16:10 Differential Diagnosis: Sepsis, intravascular volume depletion, dysrhythmia. Data rt reviewed: vital signs, nurses notes, lab test result(s), EKG, radiologic studies. Consideration of Admission/Observation Patient was admitted/placed on observation. Management of patient was discussed with the following: Hospitalist: Agrees to admit. I considered the following discharge prescriptions or medication management in the emergency department Medications were administered in the Emergency Department. See MAR. Independent interpretation of the following test(s) in the Emergency Department X-Ray: My interpretation is No pneumonia seen on interpretation of x-ray images. Counseling: I had a detailed discussion with the patient and/or guardian regarding the historical points, exam findings, and any diagnostic results supporting the discharge/admit diagnosis, lab results, radiology results, the need for further work-up and treatment in the hospital. 03/05 11:42 Order name: Blood Culture Adult (2) rt 03/05 11:42 Order name: CBC with Diff; Complete Time: 14:30 rt 03/05 11:42 Order name: CMP; Complete Time: 13:17 rt 03/05 11:42 Order name: Lactate w/ 2H reflex if indic.; Complete Time: 13:17 rt 03/05 11:42 Order name: Protime (+inr); Complete Time: 13:17 rt 03/05 11:42 Order name: Ptt, Activated; Complete Time: 13:17 rt 03/05 11:42 Order name: Urinalysis w/ reflexes rt 03/05 11:42 Order name: Troponin High Sensitivity; Complete Time: 13:17 rt 03/05 11:42 Order name: BNP; Complete Time: 13:17 rt 03/05 11:42 Order name: CPK; Complete Time: 13:17 rt 03/05 14:08 Order name: Manual Differential; Complete Time: 14:30 EDMS 03/05 16:55 Order name: Basic Metabolic Panel EDMS 03/05 16:55 Order name: Magnesium EDMS 03/05 16:55 Order name: CBC with Automated Diff EDMS 03/05 16:55 Order name: CBC with Automated Diff EDMS 03/05 16:55 Order name: CBC with Automated Diff EDMS 03/05 16:55 Order name: CBC with Automated Diff EDMS 03/05 16:55 Order name: Comprehensive Metabolic Panel EDMS 03/05 16:55 Order name: Comprehensive Metabolic Panel EDMS 03/05 16:55 Order name: Comprehensive Metabolic Panel EDMS 03/05 16:55 Order name: Lipid Profile EDMS 03/05 16:55 Order name: Lipid Profile EDAR 03/05 11:42 Order name: Chest Single View XRAY; Complete Time: 13:17 rt 03/05 11:42 Order name: CT Chest Abdomen Pelvis W/O Contrast; Complete Time: 13:17 rt 03/05 11:42 Order name: EKG; Complete Time: 11:42 rt 03/05 11:42 Order name: Accucheck; Complete Time: 12:34 rt 03/05 11:42 Order name: Cardiac monitoring; Complete Time: 12:34 rt 03/05 11:42 Order name: EKG - Nurse/Tech; Complete Time: 12:34 rt 03/05 11:42 Order name: IV Saline Lock - Large Bore; Complete Time: 12:34 rt 03/05 11:42 Order name: Labs collected and sent; Complete Time: 12:47 rt 03/05 11:42 Order name: O2 Per Protocol; Complete Time: 12:34 rt 03/05 11:42 Order name: O2 Sat Monitoring; Complete Time: 12:34 rt 03/05 11:42 Order name: Vital Signs; Complete Time: 12:34 rt EC:08 Rate is 150 beats/min. Rhythm is regular, Sinus tachycardia with No ectopy, Rate rt related ST and T wave changes. QRS [place] is Normal. [place] interval is normal. QRS interval is normal. QT interval is normal. Administered Medications: 13:11 Drug: vancoMYCIN IVPB 1 grams IVPB once over 2 hrs Route: IVPB; Infused Over: 2 hrs; ld1 Site: left jugular; 13:11 Drug: Acetaminophen PO 1000 mg PO once Route: PO; ld1 13:12 Drug: NS 0.9% IV 1000 ml IV at 1 bolus Per protocol; 1000 mL bolus Route: IV; Rate: 1 ld1 bolus; Site: left jugular; 13:12 Drug: Cefepime IVPB 2 grams IVPB at 200 ml/hr once over 30 mins; (mix in NS 100 mL) ld1 Route: IVPB; Rate: 200 ml/hr; Infused Over: 30 mins; Site: left jugular; 14:49 Drug: NS 0.9% IV 1000 ml IV at 1 bolus Per protocol; 1000 mL bolus Route: IV; Rate: 1 ld1 bolus; Site: left jugular; 16:00 Follow up: IV Status: Completed infusion; IV Intake: 1000ml nj1 16:22 Drug: NS 0.9% IV 1000 ml IV at 1 bolus Per protocol; 1000 mL bolus Route: IV; Rate: 1 nj1 bolus; Site: Other; Disposition Summary: 03/05/24 14:56 Hospitalization Ordered Notes: Hospitalization Status: Inpatient Admission rt Provider: Sandro Spencer rt Location: Intensive Care Unit rt Condition: Critical rt Problem: new rt Symptoms: have improved rt Bed/Room Type: Standard rt Room Assignment: 3-(03/05/24 17:15) eb Diagnosis - Severe sepsis without septic shock rt - Cellulitis of back rt Forms: - Medication Reconciliation Form rt - SBAR form rt - Leadership Thank You Letter rt Signatures: Dispatcher [employer] EDMS Cuca Shen eb Minerva Maloney, RN RN ld1 Ayaan Coombs MD MD rt Anita Higgins RN RN nj1 Corrections: (The following items were deleted from the chart) 11:42 BLOOD CULTURE*+BA.LAB.BRZ ordered. EDMS EDMS 11:42 CBC+H.LAB.BRZ ordered. EDMS EDMS 11:42 COMPREHENSIVE METABOLIC PANEL+C.LAB.BRZ ordered. EDMS EDMS 11:42 LACTATE+C.LAB.BRZ ordered. EDMS EDMS 11:42 PROTIME (+INR)+COAG.LAB.BRZ ordered. EDMS EDMS 11:42 PTT, ACTIVATED+COAG.LAB.BRZ ordered. EDMS EDMS 11:42 Urinalysis+U.LAB.BRZ ordered. EDMS EDMS :43 11:42 Troponin High Sensitivity+C.LAB.BRZ ordered. EDMS EDMS 11:43 11:42 PROBNP+C.LAB.BRZ ordered. EDMS EDMS :43 11:42 CREATINE PHOSPHOKINASE+C.LAB.BRZ ordered. EDMS EDMS 12:30 12:29 PMHx: Cellulitis; ld1 ld1 12:30 12:29 PMHx: Hypertension; ld1 ld1 12:30 12:29 PMHx: Diabetes - NIDDM; ld1 ld1 12:30 12:29 PMHx: Lymphadema; ld1 ld1 12:30 12:29 PMHx: chronic back pain (Lymphadema); ld1 ld1 12:30 12:29 PMHx: Wounds to legs; ld1 ld1 12:30 12:29 PMHx: Sifuentes catheter; ld1 ld1 14:08 13:06 CBC Smear Scan ordered. EDMS EDMS 17:15 14:56 rt eb
--- NOTE | 2024-03-05 14:57 | ER ---
Nurse's Notes [facility] Name: Carrie Webb Age: 68 yrs Sex: Female : 1955 Arrival Date: 03/05/2024 Time: 11:31 Bed 3 Private MD: Diagnosis: Severe sepsis without septic shock;Cellulitis of back Presentation: 03/05 11:30 Chief complaint: EMS states: toned out to patient home for fever and high heart rate. ld1 11:30 Coronavirus screen: At this time, the client does not indicate any symptoms associated ld1 with coronavirus-19. Ebola Screen: No symptoms or risks identified at this time. 11:30 Method Of Arrival: EMS: [facility] ld1 12:28 Initial Sepsis Screen: Does the patient meet any 2 criteria? Systolic BP < 90 mmHg. ld1 Altered Mental Status. HR > 90 bpm. Yes Does the patient have a suspected source of infection? No. Patient's initial sepsis screen is negative. Risk Assessment: Do you want to hurt yourself or someone else? Patient reports no desire to harm self or others. Onset of symptoms was March 05, 2024 at 12:29. 12:28 Acuity: YOSSI 2 ld1 Triage Assessment: 11:33 General: Appears in no apparent distress. obese, unkempt, Behavior is cooperative, ld1 anxious, fussy. Pain: Complains of pain in buttocks Pain does not radiate. Pain currently is 8 out of 10 on a pain scale. Quality of pain is described as throbbing, Pain began suddenly, Is continuous. EENT: No signs and/or symptoms were reported regarding the EENT system. Neuro: Level of Consciousness is awake, alert, obeys commands, Oriented to person, place, time, situation. Cardiovascular: Capillary refill < 3 seconds Patient's skin is warm and dry. Rhythm is sinus tachycardia. Respiratory: Airway is patent Respiratory effort is even, unlabored. GI: Abdomen is round non-distended. : Keating in place Pt arrived to ER with catheter in place - do not know how long it has been in place. D/C catheter, provided perineal care \T\ inserted new keating catheter at this time. Urine is dark tea color. Derm: Rash noted that is rash to breast and groin area, ISABEL arms and legs. Musculoskeletal: No signs and/or symptoms reported regarding the musculoskeletal system. 11:33 Derm: Wound noted coccyx. ld1 Historical: - Allergies: 12:29 PENICILLINS; ld1 - Immunization history:: Adult Immunizations up to date. - Infectious Disease History:: Denies. - Social history:: Smoking status: Patient denies any tobacco usage or history of. Screenin:28 [facility] ED Fall Risk Assessment (Adult) History of falling in the last 3 months, ld1 including since admission No falls in past 3 months (0 pts). Abuse screen: Denies threats or abuse. Denies injuries from another. Nutritional screening: No deficits noted. Tuberculosis screening: No symptoms or risk factors identified. Assessment: 11:35 Reassessment: Received patient from EMS soiled in feces and urine. Feet discolored and ld1 bleeding. Pt c/o pain to buttocks, brief was stuck to patient bottom due to urine and feces being in brief for several days. Pt HR elevated and Low BP. ERP at bedside assessing patient. Pt reports pain all over and denies being changed in many days. 11:40 Reassessment: Pt cleaned with soap and water. New brief applied. D/C keating and inserted ld1 new keating catheter. Urine brown in color upon arrival from EMS. 12:23 Reassessment: ERP at bedside providing care. Inserting central line at this time. ld1 12:28 Reassessment: XRAY at bedside. hb 12:32 Reassessment: OK to use CVC per Dr. Mohamud. hb 12:44 Reassessment: Case number APS - [id number] - Jac ID NUMBER [id number]. ld1 13:12 Reassessment: No changes from previously documented assessment. Patient and/or family ld1 updated on plan of care and expected duration. Pain level reassessed. 13:24 Reassessment: APS called to get more info about patient - Agent spoke with daughter jasmnie about previous and current case. [phone] - agent wants to be updated on patient and if patient is transferred. Vital Signs: 11:33 BP 84 / 56; Pulse 139; Resp 15; Temp 100.3(R); Pulse Ox 96% on R/A; Height 5 ft. 4 in. ;ld1 12:28 BP 83 / 60; Pulse 149; Resp 23; Pulse Ox 95% on R/A; ld1 12:34 Weight 93.89 kg; ld1 13:12 BP 94 / 82; Pulse 147; Resp 17; Pulse Ox 98% on R/A; ld1 13:25 BP 94 / 82; Pulse 144; Resp 17; Pulse Ox 96% on R/A; ld1 14:50 BP 89 / 68; Pulse 145; Resp 18; Pulse Ox 95% on R/A; ld1 16:11 BP 92 / 55; Pulse 148; Resp 17; Pulse Ox 98% ; MAP 62 mmHg; ld1 18:05 BP 99 / 70; ld1 ED Course: 11:30 Client placed on continuous cardiac and pulse oximetry monitoring. NIBP monitoring hb applied. surveillance monitor on. Pulse ox on. NIBP on. 11:33 Arm band placed on right wrist. EKG completed in triage. Results shown to MD. ld1 11:[address] via stretcher. ld1 11:35 Bath given. Cleaned of incontinence. Linen changed. ld1 11:36 Patient arrived in ED. eb 11:37 Ayaan Coombs MD is Attending Physician. rt 11:45 Missed attempt(s): 22 gauge in left forearm. ld1 11:45 Assisted provider with central line placement. Set up central line tray. Triple lumen ld1 line placed in left internal jugular. Line placed by Ayaan Coombs MD Placement verified by CXR, blood return, Dressed with Tegaderm, Blood was collected. Patient tolerated well. Before procedure, did Practitioner(s) obtain informed consent? Yes. Patient \T\ family education about procedure, CLABSI prevention and S/S of infection? Yes. Was handwashing/sanitizing done immediately prior to procedure? Yes. Was patient positioned to in a way to prevent air embolism? Yes. Was procedure site sterilized? Yes, with Was the site allowed to dry? Yes. Was local anesthetic and/or sedation utilized? Yes. During the procedure, did the Practitioner(s) maintain a sterile field? Yes. Was blood aspirated from each lumen? Yes. After the procedure, did the Practitioner(s) clean the site and apply a sterile dressing? Yes. 12:00 Keating cath inserted, using sterile technique, 16 Fr., by professional architect, balloon inflated, ld1 Patient tolerated well. 12:03 Anita Higgins, RN is Primary Nurse. nj1 12:12 Minerva Maloney, BERNADETTE is Primary Nurse. ld1 12:29 Triage completed. ld1 12:29 EKG done, by ED staff. [email or web address] 12:33 Chest Single View XRAY In Process Unspecified. EDMS 12:35 Warm blanket given. Bath given. Cleaned of incontinence. Linen changed. jg11 12:43 CPK Sent. bc6 12:44 BNP Sent. bc6 12:44 Troponin High Sensitivity Sent. bc6 12:44 Blood Culture Adult (2) Sent. bc6 12:44 CBC with Diff Sent. bc6 12:44 CMP Sent. bc6 12:44 Lactate w/ 2H reflex if indic. Sent. bc6 12:44 Protime (+inr) Sent. bc6 12:44 Ptt, Activated Sent. bc6 12:46 Patient has correct armband on for positive identification. Placed in gown. Bed in low ld1 position. Call light in reach. Side rails up X2. 12:56 CT Chest Abdomen Pelvis W/O Contrast In Process Unspecified. EDMS 14:56 Sandro Spencer MD is Hospitalizing Provider. rt 16:15 Notified ED physician of vital signs. nj1 18:28 Patient admitted, IV remains in place. ld1 Administered Medications: 13:11 Drug: vancoMYCIN IVPB 1 grams IVPB once over 2 hrs Route: IVPB; Infused Over: 2 hrs; ld1 Site: left jugular; 13:11 Drug: Acetaminophen PO 1000 mg PO once Route: PO; ld1 13:12 Drug: NS 0.9% IV 1000 ml IV at 1 bolus Per protocol; 1000 mL bolus Route: IV; Rate: 1 ld1 bolus; Site: left jugular; 13:12 Drug: Cefepime IVPB 2 grams IVPB at 200 ml/hr once over 30 mins; (mix in NS 100 mL) ld1 Route: IVPB; Rate: 200 ml/hr; Infused Over: 30 mins; Site: left jugular; 14:49 Drug: NS 0.9% IV 1000 ml IV at 1 bolus Per protocol; 1000 mL bolus Route: IV; Rate: 1 ld1 bolus; Site: left jugular; 16:00 Follow up: IV Status: Completed infusion; IV Intake: 1000ml nj1 16:22 Drug: NS 0.9% IV 1000 ml IV at 1 bolus Per protocol; 1000 mL bolus Route: IV; Rate: 1 nj1 bolus; Site: Other; Medication: 18:28 VIS not applicable for this client. ld1 Intake: 16:00 IV: 1000ml; Total: 1000ml. nj1 Outcome: 14:56 Decision to Hospitalize by Provider. rt 18:28 Admitted to ICU accompanied by nurse, accompanied by tech, via stretcher, room 3, ld1 Report called to Nicolasa 18:28 Condition: unchanged 18:28 Instructed on the need for admit, 18:28 Patient left the ED. ld1 Signatures: Dispatcher [employer] EDMS Avis Villagran RN RN Cuca Shen Lauren, RN RN ld1 Ayaan Coombs MD MD rt Malia Bray6 Anita Higgins RN RN nj1 Tim Mccain [email or web address] Corrections: (The following items were deleted from the chart) 12:28 12:25 Chief complaint: EMS states: toned out to patient home for fever and high heart ld1 rate. ld1 12:30 11:33 BP 84 / 56; Pulse 139bpm; Resp 15bpm; Pulse Ox 96% RA; ld1 ld1 12:30 12:29 PMHx: Cellulitis; ld1 ld1 : 12:29 PMHx: Hypertension; ld1 ld1 : 12:29 PMHx: Diabetes - NIDDM; ld1 ld1 : 12:29 PMHx: Lymphadema; ld1 ld1 : 12:29 PMHx: chronic back pain (Lymphadema); ld1 ld1 : 12:29 PMHx: Wounds to legs; ld1 ld1 : 12:29 PMHx: Keating catheter; ld1 ld1
[2024-03-05] MEDS ORDERED: NOREPINEPHRINE BITARTRATE/D5W 4 MG/250 ML BAG IV ONE (18:00)
[2024-03-05] MEDS: NOREPINEPHRINE 4 MG in D5W 250 ML IV SCH (18:06)
--- NOTE | 2024-03-05 18:54 | P.HP ---
Certification for Inpatient Patient admitted to: Inpatient With expected LOS: >2 Midnights Practitioner: I am a practitioner with admitting privileges, knowledge of patient current condition, hospital course, and medical plan of care. Services: Services provided to patient in accordance with Admission requirements found in Title 42 Section 412.3 of the Code of Federal Regulations Patient History Date of Service: 03/05/24 Reason for admission: Septic shock History of Present Illness: Patient is a 68-year-old female with a past medical history of hypertension, prediabetes, obesity, COPD, lymphedema, spinal stenosis who is bedbound who presented to the ED with complaints of altered mental status. Found to be hypotensive, tachycardic temp 100.3. Lactic acid 2.4. admitted for septic shock. Blood cultures obtained, given 3 L of fluid without improvement in blood pressure, started on empiric antibiotics. Transferred to ICU and started on Levophed drip. Of note patient was recently admitted (02/21-02/24) for similar symptoms and treated for septic shock secondary to cellulitis of bilateral lower extremities/UTI. Allergies Penicillins Allergy (Verified 01/16/19 01:48) Hives/Rash Home medications list reviewed: Yes Home Medications: Gabapentin 600 mg PO TID 01/16/19 Metformin ER [Glucophage ER*] 250 mg PO DAILY 01/16/19 Tramadol HCl [Ultram] 100 mg PO TID 01/16/19 Diphenhydramine [Benadryl*] 25 mg PO QID PRN #20 tab 02/25/24 Doxycycline Hyclate 100 mg PO BID #14 cap 02/25/24 Medihoney [Medihoney Woundcare Gel*] 1 appl TOP DAILY #1 tube 02/25/24 - Past Medical/Surgical History Diabetic: Yes -: Diabetes -: HTN -: Diabetic Neuropathy -: Neuropathy -: Sleep apnea -: PVD -: Atherosclerosis -: Osteoarthritis -: Tobacco abuse -: Left knee replacement -: Right knee surgery x2 -: Hysterectomy 2002 -: x2 -: Right breast lumpectomy - benign Psychosocial/ Personal History: Patient lives at home with her - Family History Mother -: Diabetes Father -: Heart disease Brother -: Heart disease - Social History Smoking Status: Former smoker Alcohol use: No CD- Drugs: No Caffeine use: Yes Review of Systems 10-point ROS is otherwise unremarkable General: Weakness Integumentary: Rash Physical Examination - Vital Signs Temperature: 100.3 F Blood Pressure: 99/70 Pulse: 148 Respirations: 17 - Physical Exam General: In no apparent distress, Oriented x1 HEENT: Atraumatic, Other (Dry oral mucosa) Respiratory: Normal air movement (Unlabored respirations on room air), Diminished (At bases) Cardiovascular: Other (Pedal pulses nonpalpable. Hands and feet cool to touch.), Edema (Right hand), Irregular heart rate/rhythm (Tachycardic) Gastrointestinal: Normal bowel sounds, Soft and benign Integumentary: Skin lesion (Groin, and lateral chest, under breasts), Pressure ulcer (Buttocks), Venous stasis ulcer (BLE) Urinary: Sifuentes catheter - Studies Laboratory Data (last 24 hrs) 03/05/24 03/05/24 03/05/24 12:40 12:40 12:40 WBC 12.60 H Hgb 13.2 Hct 40.2 Plt Count 57 L PT 17.1 H INR 1.58 APTT 28.2 Sodium 129 L Potassium 4.4 BUN 38 H Creatinine 1.47 H Glucose 130 H Total Bilirubin 0.9 AST 54 H ALT 26 Alkaline Phosphatase 155 H Imagings Data: - Reviewed Assessment and Plan - Plan Problem list Septic shock secondary to cellulitis sacrum vs UTI Fungal dermatitis Thrombocytopenia Sacral Pressure Ulcer, Unstageable Lymphedema COPD 5 cm fatty mass interatrial septum Septic shock secondary to cellulitis sacral ulcer vs UTI Sacral Pressure Ulcer, Unstageable - Blood cultures 03/05: Pending - Urine culture pending -Lactic acid 2.4 -Leukocytosis. Tmax 100.3 F -Given 3 L fluid bolus in ED. Started on Levophed 03/05 -Started on empiric meropenem and vancomycin given history of multidrug resistant infections - Wound care consultation. Infectious Disease consultation in AM. - CT chest abdomen pelvis 03/05: "Small left pleural effusion. Fatty liver. Cholelithiasis without evidence cholecystitis. Prominent stranding within lateral subcutaneous tissues abdomen and pelvis. Stranding within the right lateral subcutaneous tissues abdomen pelvis to a lesser degree. This could represent a cellulitis and should be correlated clinically. Cortical irregularity coccyx probably chronic osteomyelitis" - pressure ulcers: pressure offloading measures SVT 5 centimeter fatty mass interatrial septum PAD -Consult cardiology in a.m. -Patient had DOLORES on 02/23 with findings of "severely thickened intra-atrial septum (lipoma septum)". CT 03/05 with unchanged findings of 5cm fatty mass interatrial septum. -Telemetry monitoring Fungal dermatitis -Clotrimazole topical Hypertension, currently hypotensive -Hold oral antihypertensives at this time, currently on Levophed Chronic back pain -spondylosis/spinal stenosis Bedbound at baseline -Continue as needed pain medication Thrombocytopenia -Plt 57 - holding lovenox for now. Code: Full VTE: Hold lovenox given thrombocytopenia; unable to use SCDs due to bilateral venous stasis ulcers Dispo: admitted to ICU - Advance Directives Does patient have a Living Will: No Does patient have a Durable POA for Healthcare: Yes - Code Status/Comfort Care Code Status Assessed: Yes Code Status: Full Code Time Spent Managing Pts Care (In Minutes): 65
[2024-03-05] MEDS: Meropenem 1,000 MG in NA CHLORIDE 0.9% 100 ML IV SCH (20:05)
[2024-03-05 20:08] LABS: Anion Gap 14.2 mEq/L (5.0-15.0); Magnesium 1.5 mg/dL (1.6-2.4); Potassium 4.2 mEq/L (3.5-5.1)
[2024-03-05] MEDS: VANCOMYCIN 1.5 GM in NA CHLORIDE 0.9% 500 ML IVPB ONE (20:39)
[2024-03-05] MEDS: CLOTRIMAZOLE 1% CREAM 15 GM TOP SCH (20:41)
[2024-03-05] MEDS: ENOXAPARIN 40 MG/0.4 ML SQ SCH (20:41)
[2024-03-05] MEDS: Magnesium Sulfate 2gm IVPB 2 G/50 ML BAG IV ONE (21:14)
[2024-03-05] MEDS: NA CHLORIDE 0.9% 50 ML ONE (21:14)
[2024-03-05] MEDS: CALCIUM GLUCONATE 1 GM IVPB 2 GM/100 ML BAG IV ONE (21:26)
[2024-03-05] MEDS: CALCIUM GLUC 10% INJ 9.3 MEQ in NA CHLORIDE 0.9% 100 ML IV ONE (21:28)
[2024-03-05 23:08] LABS: Specific Gravity 1.022 (1.005-1.030); Sqamous Epithelial <5 /HPF (None Seen); Urine Bacteria <20 /HPF (<20); Urine Bilirubin 1+ (Negative); Urine Blood 3+ (Negative); Urine Clarity Extremely Turbid (Clear); Urine Color Yellow (Yellow); Urine Crystals Unidentified Few /HPF (None Seen); Urine Culture Reflex Order REFLEXED; Urine Glucose TRACE (Negative); Urine Ketones 1+ (Negative); Urine Microscopic Reflex YN ORDER UMIC; Urine Mucus Slight /HPF (None Seen); Urine Nitrite NEGATIVE (Negative); Urine Protein 2+ (Negative); Urine RBC >50 /HPF (None Seen); Urine Urobilinogen 1+ (Normal); Urine WBC >50 /HPF (<5); Urine WBC Clump Many /HPF (None Seen); Urine Yeast (Budding) Many /HPF (None Seen)
[2024-03-05 23:33] VITALS: BMI 35.5
[2024-03-06] MEDS: NOREPINEPHRINE BITARTRATE/D5W 0 MG/0 ML BAG IV ONE (02:39)
[2024-03-06] MEDS: NOREPINEPHRINE BITARTRATE/D5W 4 MG/250 ML BAG IV ONE ×3 (04:22→07:42)
[2024-03-06] MEDS: NA CHLORIDE 0.9% 1,000 ML IV ONE (04:30)
--- NOTE | 2024-03-06 04:36 | P.PN ---
Date of Service: 03/06/24 Patient with still persistent hypotension despite Levophed, has been having escalating doses of Levophed over the last 12 hours. Review of record with chest x-ray showing is no pulmonary edema, despite elevated proBNP of greater than 8000. Since patient is clinically volume depleted in setting of sepsis, will bolus patient with 1 L IV fluid normal saline now and follow repeat. Elevated proBNP may be due to intra-atrial mass noted on CT findings. Will follow echocardiogram.
[2024-03-06] MEDS: MAGNESIUM SULFATE 1 gm IVPB 1 GM/100 ML BAG IV ONE (04:40)
[2024-03-06] MEDS: CALCIUM GLUC 10% INJ 4.65 MEQ in NA CHLORIDE 0.9% 100 ML IV ONE (04:40)
[2024-03-06] MEDS: CALCIUM GLUCONATE 1 GM IVPB 1 GM/50 ML BAG IV ONE (04:42)
[2024-03-06] MEDS: SODIUM BICARB 50 MEQ/50ML VIAL ONE (05:39)
[2024-03-06 05:57] LABS: Arterial Blood Carboxyhemoglob 1.2 % (0-1.5); Blood Gas Oxyhemoglobin 86.9 % (94-97); Blood O2 Saturation 89.8 % (92-98.5)
[2024-03-06 06:04] LABS: Absolute Basophils 0.1 K/uL (0-0.5); Absolute Eosinophils 0.1 K/uL (0-0.5); Absolute Lymphocytes (CBC) 4.1 K/uL (0.7-4.9); Absolute Monocytes 0.9 K/uL (0.1-1.3); Absolute Neutrophil 25.5 K/uL (1.8-8.0); Basophils % 0.2 % (0-1.3); Eosinophils % 0.2 % (0-4.4); Hematocrit 30.7 % (36.0-45.0); Hemoglobin 9.3 g/dL (12.0-15.0); Lymphocytes % 13.4 % (15.3-44.8); MCH 29.2 pg (27.0-35.0); MCHC 30.3 g/dL (32.0-36.0); MCV 96.4 fL (80-100); MPV 9.2 fL (7.6-11.3); Monocytes % 2.8 % (3.3-12.3); Neutrophils % 83.4 % (41.7-73.7); Nucleated RBC Absolute Count 0.6 (0-0); Nucleated Red Blood Cells % 2.1 % (0-0); Platelets 65 thou/uL (152-406); RBC Red Blood Cell Count 3.18 M/uL (3.86-4.86); Red Cell Distribution Width 17.1 % (12.1-15.2)
[2024-03-06 06:15] LABS: ALT/SGPT 29 U/L (13-56); AST/SGOT 107 U/L (15-37); Albumin 1.1 g/dL (3.4-5.0); Albumin/Globulin Ratio 0.5 (1.1-1.8); Alkaline Phosphatase 135 U/L (45-117); Anion Gap 22.7 mEq/L (5.0-15.0); BUN Blood Urea Nitrogen 38 mg/dL (7-18); Globulin 2.4 g/dL (2.3-3.5); Glomerular Filtration Rate 29 ml/min (=/>90); Glucose Level 333 mg/dL (74-106); HDL Cholesterol 21 mg/dL (40-60); LDL Cholesterol, Calculated 71 mg/dL (<130); LDL Cholesterol,Calc NonReport 71; Magnesium 2.8 mg/dL (1.6-2.4); Potassium 4.7 mEq/L (3.5-5.1); Protein, Total 3.5 g/dL (6.4-8.2); Sodium Level 129 mEq/L (136-145)
[2024-03-06 06:18] LABS: Bicarbonate < 8 mEq/L (21-32)
[2024-03-06] MEDS ORDERED: GLUCAGON 1 MG/VIAL IM PRN (06:48)
[2024-03-06] MEDS ORDERED: D50W 25 GM/50 ML SYRINGE IV PRN (06:48)
--- NOTE | 2024-03-06 06:54 | P.PN ---
Date of Service: 03/06/24 Subjective: overnight pt with persistent hypotension, given additional 1L fluid bolus. ABG showing severe metabolic acidosis, given IV bicarb bolus and started on drip. Calcium gluconate and mag sulfate also given overnight. Physical Exam General: Not oriented. Lethargic. HEENT: Atraumatic. Dry oral mucosa. Missing teeth. Respiratory: diminished. unlabored respirations. 5L nasal cannula. Cardiovascular: Irregular heart rate/rhythm. Pedal pulses nonpalpable. Hands and feet cool to touch. Generalized edema. Gastrointestinal: Normal bowel sounds, Soft and benign Integumentary: Fungal Skin lesions Groin, and lateral chest, under breasts. Pressure ulcer sacrum unstageable. Venous stasis ulcer BLE Urinary: Sifuentes catheter Vitals reviewed Lab data reviewed Imaging data reviewed Assessment and Plan Problem list Septic shock secondary to cellulitis sacrum vs UTI Fungal dermatitis Thrombocytopenia Sacral Pressure Ulcer, Unstageable Lymphedema COPD 5 cm fatty mass interatrial septum Septic shock secondary to cellulitis sacral ulcer vs UTI Sacral Pressure Ulcer, Unstageable - Blood cultures 03/05: Pending - Urine culture 03/05:pending -Lactic acid 2.4 -> 1.1 -Leukocytosis worsening. -Started on empiric meropenem and vancomycin given history of multidrug resistant infections - Micafungin IV added 03/06 - Wound care consultation. Infectious Disease consultation. - CT chest abdomen pelvis 03/05: "Small left pleural effusion. Fatty liver. Cholelithiasis without evidence cholecystitis. Prominent stranding within lateral subcutaneous tissues abdomen and pelvis. Stranding within the right lateral subcutaneous tissues abdomen pelvis to a lesser degree. This could represent a cellulitis and should be correlated clinically. Cortical irregularity coccyx probably chronic osteomyelitis" - pressure ulcers: pressure offloading measures - pulmonology consulted Metabolic Acidosis - nephrology consulted SVT 5 centimeter fatty mass interatrial septum -Patient had DOLORES on 02/23 with findings of "severely thickened intra-atrial septum (lipoma septum)". CT 03/05 with unchanged findings of 5cm fatty mass interatrial septum. -Telemetry monitoring Fungal dermatitis -Clotrimazole topical - micafungin IV (started 03/06) Hypertension, currently hypotensive -Hold oral antihypertensives at this time, currently on Levophed Chronic back pain -spondylosis/spinal stenosis Bedbound at baseline -Continue as needed pain medication Thrombocytopenia -Plt 57 - holding lovenox for now. Code: Full VTE: Hold lovenox given thrombocytopenia; unable to use SCDs due to bilateral venous stasis ulcers Dispo: admitted to ICU
[2024-03-06] MEDS ORDERED: D10W 125 ML IV PRN (06:55)
[2024-03-06] MEDS: WATER FOR INJ,STERILE 1,000 ML with NA BICARB 8.4% 150 MEQ IV SCH (08:04)
[2024-03-06] MEDS: MICAFUNGIN SODIUM 100 MG in NA CHLORIDE 0.9% 100 ML IV SCH (08:11)
[2024-03-06] MEDS: INSULIN REGULAR (HUMAN) 100 UNIT/ML SQ SCH (08:11)
[2024-03-06] MEDS: NOREPINEPHRINE 8 MG in D5W 250 ML IV SCH (08:45)
[2024-03-06 08:46] LABS: Blood Gas Oxyhemoglobin 90.6 % (94-97); Blood Gas THB 9.3 g/dl (12-18); Blood O2 Saturation 91.7 % (92-98.5)
[2024-03-06 08:49] LABS: PT Prothrombin Time 30.9 SECONDS (9.5-12.5); Protime INR 2.9
[2024-03-06 08:57] VITALS: O2SAT 92
[2024-03-06 09:00] LABS: C-Reactive Protein 7.47 mg/L (<3.00)
[2024-03-06] MEDS ORDERED: MICAFUNGIN SODIUM 100 MG VIAL IV SCH (09:00)
[2024-03-06 09:36] VITALS: TEMP 97.2
[2024-03-06] MEDS: NOREPINEPHRINE 16 MG in D5W 250 ML IV SCH (09:36)
[2024-03-06 09:56] LABS: Anisocytosis 1+; Band Neutrophils 9 % (0-1); Blood Morphology Comment NOTED (NOT SEEN); Differential Total Cells Count 100; Lymphocytes 16 % (15-42); Metamyelocytes 1 % (0-0); Monocytes 3 % (0-10); Myelocytes 4 % (0-0); Nucleated Red Blood Cells 4 /100WBC; Platelet Estimate DECR; Polychromasia 1+; Segmented Neutrophils 67 % (40-80)
--- NOTE | 2024-03-06 10:02 | RAD REPORT ---
EXAM DESCRIPTION: RAD - Chest Single View - 03/06/2024 8:51 am CLINICAL HISTORY: s/p IVF, tachypneic Chest pain. COMPARISON: Chest Single View dated 03/05/2024; Chest Single View dated 02/21/2024; Chest Single View dated 09/24/2020; Chest Single View dated 09/21/2020; Chest Abd Pelvis Wo Con dated 03/05/2024 FINDINGS: Portable technique limits examination quality. Small left pleural effusion is likely present. Hazy left lung base may be atelectasis. Left-sided ekysha ous catheter tip in SVC. The heart is upper limit normal in size.
[2024-03-06 10:54] VITALS: BP 49/29
--- NOTE | 2024-03-06 11:33 | P.CNS ---
Date of Consult: 03/06/24 Chief Complaint: Septic shock History of Present Illness: Is 68 years of age admitted with altered mental status septic shock extensive cutaneous changes currently unresponsive severely acidotic members at the bedside Allergies Penicillins Allergy (Verified 01/16/19 01:48) Hives/Rash Home Medications: Gabapentin 600 mg PO TID 01/16/19 Metformin ER [Glucophage ER*] 250 mg PO DAILY 01/16/19 Tramadol HCl [Ultram] 100 mg PO TID 01/16/19 Diphenhydramine [Benadryl*] 25 mg PO QID PRN #20 tab 02/25/24 Doxycycline Hyclate 100 mg PO BID #14 cap 02/25/24 Medihoney [Medihoney Woundcare Gel*] 1 appl TOP DAILY #1 tube 02/25/24 - Past Medical/Surgical History Diabetic: Yes -: Diabetes -: HTN -: Diabetic Neuropathy -: Neuropathy -: Sleep apnea -: PVD -: Atherosclerosis -: Osteoarthritis -: Tobacco abuse -: Left knee replacement -: Right knee surgery x2 -: Hysterectomy 2001 -: x2 -: Right breast lumpectomy - benign Psychosocial/ Personal History: Patient lives at home with her - Family History Mother Medical History: Diabetes Father Medical History: Heart disease Brother Medical History: Heart disease - Social History Smoking Status: Current every day smoker Alcohol use: No CD- Drugs: No Caffeine use: Yes Place of Residence: Home Review of Systems is unable to be obtained Physical Examination Temp Pulse Resp BP Pulse Ox 97.2 F 80 4 L 49/29 L 90 L 03/06/24 07:30 03/06/24 09:45 03/06/24 09:45 03/06/24 09:45 03/06/24 06:45 General: Unresponsive, Comatose Respiratory: Clear to auscultation bilaterally Cardiovascular: Edema Integumentary: Other (Extensive changes noted documented by the pictures) Laboratory Data (last 24 hrs) 03/05/24 03/05/24 03/05/24 12:40 12:40 12:40 WBC 12.60 H Hgb 13.2 Hct 40.2 Plt Count 57 L PT 17.1 H INR 1.58 APTT 28.2 Sodium 129 L Potassium 4.4 BUN 38 H Creatinine 1.47 H Glucose 130 H Total Bilirubin 0.9 AST 54 H ALT 26 Alkaline Phosphatase 155 H - Problems (1) Septic shock Current Visit: Yes Status: Acute Plan: And is 68 years of age admitted with septic shock and skin infection count is significantly elevated Gassett is also elevated chest x-ray clear and is in refractory shock despite despite vasopressors with DO NOT RESUSCITATE comfort measures labs chest x-rays all reviewed discussed with the nursing staff
[2024-03-07] MEDS ORDERED: VANCOMYCIN 1.75 GM in NA CHLORIDE 0.9% 500 ML IVPB SCH (01:00)
--- NOTE | 2024-03-08 13:05 | EKG ---
Test Date: 2024-03-05 Test Time: 11:59:07 Stopper Grinder: ANABELLA MEASUREMENT RESULTS: Intervals: Rate: 150 RI: 150 QRSD: 80 QT: 318 QTc: 502 [place]: P: 102 RI: 150 QRS: 69 T: 247 INTERPRETIVE STATEMENTS: Sinus tachycardia Low voltage QRS ST & T wave abnormality, consider inferior ischemia ST & T wave abnormality, consider anterolateral ischemia Abnormal ECG Compared to ECG 02/22/2024 11:11:29 Low QRS voltage now present Atrial premature complex(es) no longer present ST (T wave) deviation still present Possible ischemia still present Electronically Signed On 03-08-24 12:57:40 CDT by Boy Epps
== END 2024-03-06 13:10 | disposition expired | DRG 871 ==
LOC: ER 11:31 → ERHOLD 16:26 → 3RD-ICU 18:29
PROVIDERS: ADMIT Hospitalist; ATTEND Hospitalist
PROC: 3E033XZ Introduction of Vasopressor into Peripheral Vein, Percutaneous Approach (ICD-10-PCS; 2024-03-05)
PROC: 4A033R1 Measurement of Arterial Saturation, Peripheral, Percutaneous Approach (ICD-10-PCS; principal; 2024-03-06)
DX: A41.9 Sepsis, unspecified organism (principal); L89.153 Pressure ulcer of sacral region, stage 3; R65.21 Severe sepsis with septic shock; R40.20 Unspecified coma; L03.312 Cellulitis of back [any part except buttock and flank]; L03.116 Cellulitis of left lower limb; L03.115 Cellulitis of right lower limb; N39.0 Urinary tract infection, site not specified; L97.919 Non-pressure chronic ulcer of unspecified part of right lower leg with unspecified severity; L97.929 Non-pressure chronic ulcer of unspecified part of left lower leg with unspecified severity; I47.10 Supraventricular tachycardia, unspecified; E87.20 Acidosis, unspecified; I83.009 Varicose veins of unspecified lower extremity with ulcer of unspecified site; I10 Essential (primary) hypertension; E11.40 Type 2 diabetes mellitus with diabetic neuropathy, unspecified; E11.51 Type 2 diabetes mellitus with diabetic peripheral angiopathy without gangrene; M47.819 Spondylosis without myelopathy or radiculopathy, site unspecified; M48.00 Spinal stenosis, site unspecified; D69.6 Thrombocytopenia, unspecified; J44.9 Chronic obstructive pulmonary disease, unspecified; F17.200 Nicotine dependence, unspecified, uncomplicated; B36.9 Superficial mycosis, unspecified; Z66 Do not resuscitate; Z88.0 Allergy status to penicillin; Z74.01 Bed confinement status; Z79.84 Long term (current) use of oral hypoglycemic drugs; Z79.899 Other long term (current) drug therapy; Z96.652 Presence of left artificial knee joint; Z90.710 Acquired absence of both cervix and uterus
CPT/HCPCS: 36415; 36600; 51702; 71045; 71250; 74176; 80048; 80053; 80061; 81001; 82550; 82805; 83605; 83735; 83880; 84145; 84484; 85025; 85384; 85610; 85730; 86140; 87040; 87086; 87088; 93005; 96361; 96374; 96375; 99285; J0612; J0692; J1650; J1815; J2185; J2248; J3475; J7030; J7040; J7050; J7060